=== PATIENT | female | born 1935 | race Caucasian/White ===

== ENCOUNTER 2017-11-16 07:30 | Inpatient (IN) | payer OTHER ==
--- NOTE | 2017-11-17 10:18 | EKG ---
Test Date: 2017-11-17 Test Time: 10:04:19 Fulling Machine Operator: HIEN MEASUREMENT RESULTS: Intervals: Rate: 59 NE: QRSD: 82 QT: 412 QTc: 407 [place]: P: NE: QRS: 30 T: 24 INTERPRETIVE STATEMENTS: Demand pacemaker, interpretation is based on intrinsic rhythm Atrial fibrillation with slow ventricular response with premature ventricular or aberrantly conducted complexes Abnormal ECG Compared to ECG 01/15/2007 17:07:31 Ventricular premature complex(es) now present Sinus rhythm no longer present Electronically Signed On 11-17-17 10:17:48 CDT by Artis Moss
--- NOTE | 2017-11-17 10:31 | RAD REPORT ---
EXAM DESCRIPTION: RAD - Chest Pa And Lat (2 Views) - 11/17/2017 10:22 am CLINICAL HISTORY: Arthritis, chest pain. COMPARISON: 04/17/2015 FINDINGS: The lungs are mildly emphysematous but grossly clear. The heart is moderately enlarged wit h a single lead pacer device present. No displaced fractures. Deviation of the trachea to the left in the upper chest may be related to prominent thyroid nodule appears unchanged since comparative studi es. IMPRESSION: COPD. No acute finding evident.
[2017-11-17 10:52] LABS: Protime INR 1.22
[2017-11-17 10:53] LABS: Absolute Lymphocytes (CBC) 1.8 K/uL (0.7-4.9); Absolute Monocytes 0.5 K/uL (0.1-1.3); Basophils % 0.5 % (0-1.3); Eosinophils % 4.3 % (0-4.4); Hematocrit 39.9 % (36.0-45.0); Lymphocytes % 26.8 % (15.3-44.8); MCH 31.6 pg (27.0-35.0); MCV 94.2 fL (80-100); Monocytes % 7.5 % (3.3-12.3); RBC Red Blood Cell Count 4.24 M/uL (3.86-4.86)
[2017-11-17 11:10] LABS: Albumin 4.3 g/dL (3.2-5.5); Bilirubin Total 0.6 mg/dL (0.3-1.2); Potassium 4.7 mEq/L (3.6-5.0); Protein, Total 7.2 g/dL (6.0-8.3)
[2017-11-17 11:12] LABS: Albumin 4.3 g/dL (3.2-5.5); Bilirubin Direct 0.1 mg/dL (0-0.2); Bilirubin Total 0.6 mg/dL (0.3-1.2); Protein, Total 7.4 g/dL (6.0-8.3)
[2017-11-17 11:19] LABS: Urine Appearance CLEAR; Urine Bilirubin NEGATIVE (NEG); Urine Blood NEGATIVE (NEG); Urine Color YELLOW; Urine Glucose NEGATIVE (NEG); Urine Protein NEGATIVE (NEG); Urine Specific Gravity 1.015 (1.005-1.030); Urine Urobilinogen 0.2 mg/dL (0.2-1.0); Urine pH 5.5 (5.0-7.0)
[2017-11-17 11:28] LABS: Urine Microscopic Reflex ORDER UMIC
[2017-11-17 11:39] LABS: Urine RBC <5 /HPF (NONE SEEN)
[2017-11-17 11:40] LABS: Urine Bacteria <20 /HPF (<20)
[2017-11-17 11:41] LABS: Urine Culture Reflex Order REFLEXED
[2017-11-17 11:42] LABS: A1c Component 0.48 mg/dL; Hemoglobin A1c 5.4 % (4-6.0)
[2017-11-23] MEDS ORDERED: CEFAZOLIN/SWI 1gm 1 GM/10 ML SYR ONE (05:59)
[2017-11-23] MEDS ORDERED: Ringers Lactate 1,000 ML IV ONE ×3 (05:59→12:58)
[2017-11-23] MEDS ORDERED: PROPOFOL 200 MG/20 ML VIAL IV ONE (06:48)
[2017-11-23] MEDS ORDERED: MIDAZOLAM HCL 2 MG/2 ML INJ ONE (06:48)
[2017-11-23] MEDS ORDERED: FENTANYL CITR 250 MCG/5 ML ONE (06:49)
[2017-11-23] MEDS ORDERED: LIDOCAINE 2% MPF 5 ML VIAL ONE (06:49)
[2017-11-23] MEDS ORDERED: ROPLVACAINE HCL 40 ML ONE (06:59)
[2017-11-23] MEDS ORDERED: DEXAMETHASONE 4 MG/ML VIAL ONE (06:59)
[2017-11-23] MEDS ORDERED: BUPIVACA 0.25%/EPI 0.0005%/PF 30 ML VIAL ONE (07:06)
[2017-11-23] MEDS ORDERED: NA CHLORIDE 0.9% 250 ML ONE (07:06)
[2017-11-23] MEDS ORDERED: TRANEXAMIC ACID 1,000 MG in NA CHLORIDE 0.9% 50 ML IV SCH (07:15)
[2017-11-23] MEDS ORDERED: KETOROLAC 30 MG/ML INJ ONE (10:20)
[2017-11-23] MEDS ORDERED: DOCUSATE NA 100 MG CAP PO PRN (11:06)
[2017-11-23] MEDS ORDERED: ACETAMINOPHEN 325 MG TABLET PO PRN (11:06)
[2017-11-23] MEDS ORDERED: ONDANSETRON 4 MG/2 ML VIAL IV PRN (11:06)
[2017-11-23] MEDS ORDERED: ZOLPIDEM TARTRATE 5 MG TABLET PO PRN (11:06)
[2017-11-23] MEDS ORDERED: HYDROCODONE/APAP 7.5/325 MG TAB PO PRN (11:06)
--- NOTE | 2017-11-23 11:44 | RAD REPORT ---
EXAM DESCRIPTION: RAD - Knee Right 2 View - 11/23/2017 11:38 am CLINICAL HISTORY: Right TKA COMPARISON: None. FINDINGS: A right total knee arthroplasty has been performed. Hardware is in expected location. Skin ruy are noted. IMPRESSION: Postoperative right knee with no unexpected finding.
[2017-11-23] MEDS: Ringers Lactate 1,000 ML IV SCH (12:00)
[2017-11-23 12:26] LABS: Hematocrit 37.3 % (36.0-45.0)
--- NOTE | 2017-11-23 15:29 | P.BOP ---
Preoperative diagnosis: Primary osteoarthritis right knee Postoperative diagnosis: Same Primary procedure: right total knee arthroplasty with computer navigation, imageless. Bodily Injury Adjuster: RACIEL ANDERS (Gave necessary pathologist assistant services throughout the case.) Estimated blood loss: 100 mL Specimen: bone shards and soft tissue debrided Findings: Severely eroded lateral femoral condyle with bone on bone contact with the Anesthesia: General Complications: None Implants: [Patella 35 mm oval dome;femur sz3 right;tray sz4RP; insert 3x12.5 RP/ PS
[2017-11-23 17:22] VITALS: BMI 28.6
[2017-11-23] MEDS: CEFAZOLIN/SWI 1gm 1 GM/10 ML SYR IV SCH (17:22)
[2017-11-23] MEDS ORDERED: AMLODIPINE 5 MG TAB PO ONE (19:01)
[2017-11-23] MEDS: ROSUVASTATIN 10 MG TAB PO SCH (20:25)
[2017-11-23] MEDS: BETAMETHASONE DIP 0.05% CREAM TOP SCH (20:27)
[2017-11-24] MEDS: CEFAZOLIN/SWI 1gm 1 GM/10 ML SYR IV SCH (00:15)
--- NOTE | 2017-11-24 01:10 | CON ---
Date of Consultation: 11/23/2017 Reason For Consultation: Medical management. History Of Present Illness: An 82-year-old female patient, who had knee surgery done by Dr. French and postoperatively consultation was requested for medical management. I saw her this evening. She denies any complaints of any pain anywhere. No chest pain. No shortness of breath. No abdominal pain, nausea, vomiting. Review of Systems: Musculoskeletal: Right knee pain prior to surgery because of arthritis. No pain at this point. All other systems reviewed and negative. Past Medical History: Significant for hypertension, chronic atrial fibrillation , hyperlipidemia, osteoporosis, osteoarthritis at multiple sites. Past Surgical History: Significant for pacemaker placement and appendectomy. Allergies: THE PATIENT HAS INTOLERANCE TO MEDICATIONS LIKE FOSAMAX CAUSING NAUSEA AND DIZZINESS, LIPITOR CAUSING HEADACHE, CALCITONIN NASAL SPRAY CAUSING DIZZINESS AND STOMACH PROBLEMS, FENOFIBRATE CAUSING NAUSEA AND VOMITING, GEMFIBROZIL CAUSING DIZZINESS, EVISTA CAUSING NAUSEA, ACTONEL CAUSING NAUSEA, CRESTOR CAUSING NAUSEA, SIMVASTATIN CAUSING HEADACHE. Family History: Not pertinent. Social History: Prior history of smoking, not at present time. Use of alcohol negative. Medications: At home, she takes amlodipine 5 mg, she takes half a tablet p.o. daily; Caltrate plus D 1 tablet 2 times a day; losartan 100 mg p.o. daily; metoprolol 25 mg p.o. 2 times a day; Xarelto 20 mg p.o. daily in the evening time, and rosuvastatin 20 mg p.o. daily. Physical Examination: Vital Signs: Temperature 98.3, pulse 57, respiratory rate 17, blood pressure 176/70, oxygen saturation 94%, height 5 feet 5 inches, weight 172 pounds. General: Awake, alert, oriented, not in distress. HEENT: Head atraumatic, normocephalic. Conjunctivae nonerythematous. Sclerae white. Mouth, no thrush or edema noted. Ears/Nose, no mass, lesion, discharge noted. Neck: Supple. No JVD, lymph nodes, bruit, thyromegaly noted. Lungs: Bilateral good equal air entry. Clear to auscultation. No rhonchi. No rales. Heart: Normal heart sounds, no murmur or gallop. Abdomen: Soft, bowel sounds normal. No guarding, rigidity, tenderness, mass, hepatosplenomegaly, distention, or bruit noted. Extremities: No leg edema. No calf tenderness. Skin: No rash, ulcer, cellulitis. Lymphatics: No lymph node enlargement in neck, supraclavicular, infraclavicular region. Neuro: No focal neurological deficit. Chest: Unremarkable. External Genitalia: Deferred. Rectal: Deferred. Laboratory Data: Labs on 11/17/2017, white count 6.6, hemoglobin 13.4, sodium 135, potassium 4.7 chloride 107, bicarb 21, BUN 28, creatinine 0.66, glucose 97. Liver function test unremarkable. Hemoglobin A1c 5.4. Urinalysis negative. EKG, atrial fibrillation. Chest x-ray, no acute cardiopulmonary changes. Impression: 1. Hypertension. 2. Chronic atrial fibrillation. 3. Hyperlipidemia. 4. Osteoporosis, senile. 5. Osteoarthritis, multiple sites. Plan: Currently, she is on Lovenox for deep venous thrombosis prophylaxis. At appropriate time, we will change from Lovenox to Xarelto and we will do that either tomorrow or day after tomorrow. Home medications will be continued per order. Will continue to monitor blood pressure and if needed, make adjustment on medications. Will continue to monitor blood test for anemia. I will see her tomorrow morning for followup. Thank you much for allowing me to participate in her care. TRINI/SADIA Voice ID: [id number] Report ID: [id number] BLANCA
--- NOTE | 2017-11-24 01:16 | OP ---
Date of Procedure: 11/23/2017 Surgeon: Jasmeet French MD Tip Inserter: ZEN Nieves, who gave very necessary first mate services throughout this case. Preoperative Diagnosis: Primary osteoarthritis, right knee, with severe genu valgum deformity. Postoperative Diagnosis: Primary osteoarthritis, right knee, with severe genu valgum deformity. Primary Procedure: Right total knee arthroplasty with computer navigation, imageless. Indications: This 82-year-old female has put off for years having a joint replacement as her ability to function without severe limiting pain deteriorated. The patient has elected to proceed with righ t total knee arthroplasty after a thorough discussion of risks and benefits with all questions answer ed. Technique: The patient was taken to the operative room after a femoral nerve and sciatic nerve block was given in the PACU. The time-out was called and all pertinent facts were discussed and it was de cided to proceed with the right total knee arthroplasty. The patient was on the operative table with a bolster under the right hip and a footrest to position the knee at 90 degrees during the operation . The tourniquet was applied to the proximal thigh. The prepping and draping was carried out with a Betadine scrub and Betadine paint with Duragesic applied to the foot and ankle, which had been held in traction while the early portion of the prep was completed. The draping was carried out as usual. The knee was marked and then Ioban sticky drape was applied to the operative site. The limb was ex sanguinated with an Esmarch bandage and the tourniquet was raised to 250 mmHg and left up for 126 min utes. The incision was made along the medial third of the patella extending down to the medial side of the tibial tubercle and then longitudinally approximately 6 cm above the superior pole of the curran lla. Once the subcutaneous tissue had been sharply divided and sharp and blunt dissection exposed th e medial parapatellar line, the capsular incision was made in the medial parapatellar approach. The patella was everted and measured at 21 mm. The size of oval dome patella chosen was 35 mm. The appr opriate adjustment was made to the cutting jig and the articular surface was excised in an 8.5 mm waf er leaving 12.5 mm of cancellous patella. PEG holes were drilled. The prosthetic trial was placed i n position and again measured 21 mm. Then, the patellar trial was removed and a metal ean was put i n its place. Then, there was sharp debridement of the anterior knee removing portions of the menisci, ACL, origin of the PCL, and beginning a subperiosteal approach to the medial and lateral tibial plateau. Attenti on was then turned to the distal femur, proximal to the articular surface, and sharp debridement ther e gave access to the flat anterior cortex of the distal femur. Two 3 mm threaded pins were placed in parallel fashion in the proximal incision medial side of the distal femur for attachment of the femo ral array. The tibial array was mounted on two threaded pins through puncture wounds at the medial m id tibial position. Once the arrays were attached, then the knee was moved in circumduction to give the computer chance to calculate the center of rotation for the femoral head. Then, registration was carried out with the pointer array for the femur and then the tibia as sequenced by the computer pro gram. The knee was then held in extension for joint spaces to be recorded and then held at 90 degree s flexion for recording joint space. The program calculated for a size 4 femur and a size 4 tibial t ray. The cut was adjusted slightly and then the oscillating saw was used to make the proximal tibial osteotomy removing the articular surface. The flat-footed array was positioned and the cut was cookie rded once it was accepted. Then, tensiometers were put in place and the ligament balancing was corbin ed out. There was minimal balancing necessary. Then, the adjustments were made on the distal femora l cut to reduce the discrepancy between extension gap and flexion gap. The cut was made and verified and then the 4-in-1 cutting guide for the size 3 femur was chosen as most appropriate and it was facundo igated into position. The anterior cut for the distal femur was made and registered and then the rahul mfer cuts were carried out. The jukebox route driver was placed in position and the reciprocating saw was used for those cuts and the size 3 femoral sigma trial was tapped in position and had a very nice fit. P reparation for the tibial cut cancellous surface was then carried out with a double-prong retractor p osterior to the tibial plateau and Hohmann retractors protecting ligaments on each side. The tray si ze 4 was chosen as the best fit and the trial was tapped into position with bullet pins holding that position. Then, the tower was applied and the reamer was used in reverse to prepare for the keel of the tibial component. Once the bullet pins were removed, the femoral component was reapplied, and th e trial insert was placed in position between the femoral and tibial components and it was quite a go od fit. The patellar button was reapplied and it would track without having to control position. Th en, all prosthetic components were removed. Simpulse lavage was utilized and the drying was carried out with suction and patting with sterile lap gauzes. The 2 batches of Simplex GMV cement were mixed in the cement gun for injection technique and the cement was first injected into the proximal tibial cut surface and the tibial component was tapped into position with excess cement curetted away. The cement was injected then into the distal femoral cut surfaces, and as the femoral component was matthew ed into position, excess cement was curetted away. The remaining cement was injected into the cut edwards rface of the patella and the patellar button was tapped into position and clamped. Once the cement h ad set, the trial prosthetic insert was used first 10 mm and then the 12.5. The 12.5 x size 3 was ch osen and it was snapped into position and the functioning allowed full extension and full flexion and there was stability throughout the whole range. Simpulse lavage was used to irrigate the knee aggre ssively and then #1 Vicryl was used to close the capsule while the knee was bent at 90 degrees with i nterrupted sutures. The subcutaneous tissue was closed with 2-0 Vicryl with interrupted sutures. Sk in ruy were used for the skin. The incision was injected with 30 mL of 0.25% Marcaine plain. A sterile bandage consisting of Aquacel bandage for the main incision and a smaller Aquacel bandage for the 2 punctures on the mid tibial area were placed in position. Estimated blood loss was 100 mL. T he patient was then taken to the recovery room having tolerated this procedure well. She was to be p laced in a CPM machine moving at 0-60 degrees and scheduled for dangling from the bed this evening an d beginning joint camp with 2 physical therapy sessions on the first postoperative day. The patient was given Ancef 1 g IV piggyback prior to the surgery, and at the beginning of the surgery, 1 g of tr anexamic acid was given. The 2nd gram of tranexamic acid was given IV at the initiation of closure. KALEN/SADIA Voice ID: [id number] Report ID: [id number]
[2017-11-24] MEDS: Morphine 2 MG/2 ML SYR IV PRN ×2 (04:17→15:48)
[2017-11-24 05:07] LABS: Hematocrit 36.2 % (36.0-45.0)
[2017-11-24] MEDS: ENOXAPARIN 30 MG/0.3 ML SQ SCH ×3 (06:04→20:11)
[2017-11-24] MEDS ORDERED: HOME MED 1 EA UNK (Losartan Potassium [Losartan Potassium] 100 MG) PO SCH (09:00)
[2017-11-24] MEDS ORDERED: TACROLIMUS 30 GM TP SCH (09:00)
[2017-11-24] MEDS: CELECOXIB 100 MG CAPSULE PO SCH (10:00)
[2017-11-24] MEDS: FE SULF/FA/VIT B COMP & C TAB PO SCH (10:01)
[2017-11-24] MEDS: Ringers Lactate 1,000 ML IV SCH ×2 (10:01→20:11)
[2017-11-24] MEDS: BETAMETHASONE DIP 0.05% CREAM TOP SCH ×2 (10:01→20:08)
[2017-11-24] MEDS: LOSARTAN POTASSIUM 50 MG TABLET PO SCH (10:01)
[2017-11-24] MEDS: AMLODIPINE 2.5 MG TAB PO SCH (10:01)
[2017-11-24] MEDS: SMZ./TMP. 800/160 MG TABLET PO SCH ×2 (10:14→20:12)
[2017-11-24 10:59] LABS: Urine Appearance CLEAR; Urine Bilirubin NEGATIVE (NEG); Urine Blood NEGATIVE (NEG); Urine Color YELLOW; Urine Glucose NEGATIVE (NEG); Urine Protein NEGATIVE (NEG); Urine Urobilinogen 0.2 mg/dL (0.2-1.0); Urine pH 6.5 (5.0-7.0)
[2017-11-24 11:10] LABS: Urine Bacteria <20 /HPF (<20); Urine Culture Reflex Order NOT NEEDED; Urine RBC <5 /HPF (NONE SEEN)
--- NOTE | 2017-11-24 19:56 | P.PN ---
Date of Service: 11/24/17 (POD#1) S: THIS PATIENT IS COMPLAINING OF NAUSEA AND DIZZINESS 2 HOURS AFTER TAKING HER FIRST NORCO 7.5/325APAP TABLET FOR HER FIRST REPORTED PAIN AT 10:[address] VICTORIA HAS DOCUMENTED THE PATIENT'S MANY SIMILAR REACTIONS TO MULTIPLE MEDICATIONS. O: VITAL SIGNS ARE STABLE, PAIN WAS ALL ZEROS UNTIL 10:15,HEMOGLOBIN WAS 12.2 POSTOPERATIVELY, 11.8 THIS MORNING. FIRST PT EFFORT ACCOMPLISHED 10 FEET OF AMBULATION WHILE PATIENT WAS STILL EXPERIENCING SOME BENEFIT OF NERVE BLOCK.AFTERNOON EFFORT ACCOMPLISHED 20 FEET WITH FRONT WHEELED ROLLING WALKER. BANDAGE IS DRY AND INTACT. X-RAY SHOWS EXCELLENT ALIGNMENT OF PROSTHETIC COMPONENTS. CPM MACHINE WAS MILDLY UNCOMFORTABLE RUNNING AT SPEED OF 10 AND 0 TO 60. A: PATIENT IS EXPERIENCING SIGNIFICANT PAIN BUT NORCO 7.5/325 PROVES OVERWHELMING. P: NORCO DOSE WILL BE REDUCED TO 5.0/325 TABLETS EVERY 4 HOURS WHEN NECESSARY FOR PAIN. IF THE PATIENT CONTINUES WITH REACTION OF NAUSEA, CONVERSION TO TRAMADOL WOULD BE CONSIDERED. MORPHINE 2 MG IV IS ALSO AVAILABLE EVERY 4 HOURS AND CAN BE ALTERNATED TOLERATED IF NEEDED.
[2017-11-24] MEDS: ROSUVASTATIN 10 MG TAB PO SCH (20:12)
[2017-11-24] MEDS: HYDROCODONE/APAP 5/325 MG TAB PO PRN (20:22)
[2017-11-24] MEDS ORDERED: AMLODIPINE 5 MG TAB PO ONE (20:37)
[2017-11-25 01:22] VITALS: O2SAT 96
--- NOTE | 2017-11-25 01:59 | PN ---
Date of Progress Note: 11/24/2017 Subjective: The patient was seen this morning for followup. She was lying in bed, not in any distre ss, was having some right knee pain today. No nausea or vomiting. No chest pain. No shortness of b reath. Objective: Vital Signs: Reviewed. HEENT: Examination unremarkable. Lungs: Clear to auscultation. Heart: Heart sounds normal. Abdomen: Soft, bowel sounds normal. No guarding, rigidity, tenderness, or distention. Extremities: No leg edema. Laboratory Data: Hemoglobin 11.8. Urinalysis was done today and it came back negative for leukocyte s, negative for bacteria, wbc's less than 5. Her urine culture from 11/17/2017 grew Staph aureus and this was not MRSA, so that is why I had ordered antibiotic Bactrim to be started according to cultur e sensitivity results, and urinalysis was done today before starting antibiotics. Impression: 1.Hypertension. 2.Hyperlipidemia. 3.Osteoporosis. 4.Atrial fibrillation, chronic. Plan: The patient's repeat urinalysis that was done today came back negative, and at this point, the re is no need for her to take any antibiotic Bactrim, which was started this morning. I will go ahea d and discontinue that. She is on DVT prophylaxis with Lovenox and hemoglobin is slightly lower comp ared to yesterday, but no concerns. We will continue to monitor hemoglobin and probably starting joslyn orrow. Depending on her hemoglobin, we will decide if we can stop her Lovenox and start her on Xarel to that she normally takes at home. Continue current antihypertensive medication. I will see her tomorrow for followup. TRINI/MODL Voice ID: [id number] Report ID: [id number]
[2017-11-25] MEDS: HYDROCODONE/APAP 5/325 MG TAB PO PRN ×3 (02:07→20:30)
[2017-11-25 05:07] LABS: Hematocrit 29.7 % (36.0-45.0)
[2017-11-25] MEDS ORDERED: ENOXAPARIN 30 MG/0.3 ML SQ SCH (06:00)
[2017-11-25] MEDS: ENOXAPARIN 30 MG/0.3 ML SQ SCH ×2 (09:00→20:30)
[2017-11-25] MEDS: CELECOXIB 100 MG CAPSULE PO SCH (09:00)
[2017-11-25] MEDS: AMLODIPINE 2.5 MG TAB PO SCH (09:01)
[2017-11-25] MEDS: FE SULF/FA/VIT B COMP & C TAB PO SCH (09:01)
[2017-11-25] MEDS: LOSARTAN POTASSIUM 50 MG TABLET PO SCH (09:02)
--- NOTE | 2017-11-25 18:44 | P.PN ---
Date of Service: 11/25/17 (POD#2) S: THIS PATIENT IS COMFORTABLE IN BED WITH CPM 75*. ATE ALL OF HER LUNCH. O: VITAL SIGNS ARE STABLE, AFEBRILE, PATIENT DESCRIBES RIGHT KNEE SORENESS, BUT PARTICIPATING ENTHUSIASTICALLY WITH THERAPY. HEMOGLOBIN DROPPED FROM 11.8 TO 9.8 THIS MORNING. FIRST PT EFFORT THIS MORNING ACCOMPLISHED 50 FEET OF AMBULATION. AFTERNOON EFFORT ACCOMPLISHED 60, 38. AND 98 FEET WITH ROLLING WALKER. BANDAGE REMAINS DRY AND INTACT. ROGER'S NEGATIVE. NV EXAM INTACT. A: PATIENT IS DOING BETTER WITH NORCO 5/325, BUT C/O NAUSEA LAST NIGHT WITH MORPHINE DOSE. P: PATIENT ON TRACK FOR DISCHARGE TO [facility] ON WEDNESDAY.
[2017-11-25] MEDS: ROSUVASTATIN 10 MG TAB PO SCH (20:30)
[2017-11-25] MEDS: BETAMETHASONE DIP 0.05% CREAM TOP SCH (20:31)
--- NOTE | 2017-11-26 02:05 | PN ---
Date of Progress Note: 11/25/2017 Subjective: The patient was seen this morning for followup. She has pain in her knees when she does therapy almost, otherwise no new complaints or problems reported. Objective: Vital Signs: Reviewed. HEENT: Examination unremarkable. Lungs: Clear to auscultation. Heart: Heart sounds normal. Abdomen: Soft. Bowel sounds normal. No guarding, rigidity, tenderness, or distention. Extremities: No leg edema. Laboratory Data: Hemoglobin 9.8 today, yesterday hemoglobin was 11.8, day before it was 12.2. Impression: 1.Anemia due to acute blood loss. 2.Chronic atrial fibrillation. 3.Hypertension. Plan: The patient is on Lovenox for DVT prophylaxis. We will continue that. Considering her hemogl obin is dropping, we will not initiate any Xarelto at this point as the risk will be more than the be nefit. Continue Lovenox for DVT prophylaxis. Continue current antihypertensive medication. We will follow up on hemoglobin again tomorrow. So far, there is no need for blood transfusion. Details we re discussed with the patient. TRINI/MODL Voice ID: [id number] Report ID: [id number]
[2017-11-26 05:01] LABS: Hematocrit 29.5 % (36.0-45.0)
[2017-11-26] MEDS: BETAMETHASONE DIP 0.05% CREAM TOP SCH (09:00)
[2017-11-26] MEDS: AMLODIPINE 2.5 MG TAB PO SCH (09:12)
[2017-11-26] MEDS: LOSARTAN POTASSIUM 50 MG TABLET PO SCH (09:12)
[2017-11-26] MEDS: CELECOXIB 100 MG CAPSULE PO SCH (09:16)
[2017-11-26] MEDS: FE SULF/FA/VIT B COMP & C TAB PO SCH (09:16)
[2017-11-26] MEDS: HYDROCODONE/APAP 5/325 MG TAB PO PRN (09:16)
[2017-11-26] MEDS: ENOXAPARIN 30 MG/0.3 ML SQ SCH (09:17)
[2017-11-26 13:53] VITALS: BP 115/56; TEMP 97.9
[2017-11-26] MEDS ORDERED: RIVAROXABAN 20 MG TABLET PO SCH (17:00)
--- NOTE | 2017-11-26 21:42 | PN ---
Date of Progress Note: 11/26/2017 Subjective: The patient was seen this morning for followup. No new complaints or problems reported by her. Her knee pain was well controlled. Objective: Vital Signs: Reviewed. HEENT: Unremarkable. Lungs: Clear to auscultation. Heart: Sounds normal. Abdomen: Soft. Bowel sounds normal. No guarding, rigidity, tenderness, or distention. Extremities: No leg edema. Laboratory Data: Hemoglobin 9.7. Impression: 1.Acute blood loss anemia. 2.Hypertension. 3.Hyperlipidemia. 4.Chronic atrial fibrillation. Plan: We will go ahead and continue current medications. Discontinue Lovenox. Hemoglobin is stable compared to yesterday and we will start the patient on Xarelto 20 mg p.o. daily that she takes for h er chronic atrial fibrillation. Medically the patient is stable for discharge to go to shelter when it is okay with Dr. French. If she does not go to shelter today, I will see her tomorrow f or followup. TRINI/MODL Voice ID: [id number] Report ID: [id number]
[2017-11-27] MEDS ORDERED: METOPROLOL TAR 25 MG TAB PO SCH (09:00)
--- NOTE | 2017-12-22 11:26 | DS ---
Date of Discharge: 11/26/2017 History Of Present Illness: Esmer Flores is an 82-year-old female who was admitted for elective rig ht total knee arthroplasty done with computer navigation and Imageless technique. The patient had a Sigma DePuy posterior stabilized knee put in with 35 mm oval dome patella, femoral prosthesis size 3 right, tibial tray size 4 RP, insert 3 x 12.5, rotating platform/patella posterior stabilized. The p atient had 100 mL estimated blood loss. She was found to have a severely eroded lateral femoral cond yle with bone on bone contact in that compartment. She was then admitted. Dr. Holloway was consulted fo r medical management and found problems to include hypertension, chronic atrial fibrillation, hyperli pidemia, senile osteoporosis, and osteoarthritis multiple sites. Lovenox was being used for deep justin ous thrombosis prophylaxis with plans to change to Xarelto at her usual dose. The first postop day w as marked with complaints of nausea and dizziness two hours after taking her first dose of hydrocodon e as her femoral sciatic nerve block were off, requiring her first use of medication at approximately 10:15 a.m. The patient has had many similar reactions to multiple medications. Postop day 1 hemogl obin was 11.8, and the patient only completed 10 feet of ambulation in the morning and 20 feet in the afternoon using a front wheeled rolling walker. Her bandage remained dry and intact and x-ray showe d excellent alignment of prosthetic components. CPM was being used at 0-60 degrees as tolerated. Th e [place] dose was reduced to 5 mg tablets/325 APAP to be taken every 4 hours only when necessary for p ain. Morphine at 2 mg IV was also available q.4 hours to be alternated as needed. Dr. Holloway saw the patient on the first postop day and stopped the Bactrim that he had ordered as the more recent urinal ysis came back clear. On postoperative day 2, the patient was comfortable with CPM at 75 degrees and her appetite had returned. She was participating enthusiastically with therapy accomplishing 50 fee t of ambulation in the morning and 60, 38, and 98 feet in the afternoon. Bandage remained dry and in tact. Hemoglobin dropped from 11.8 to 9.8 with a morning test, the patient was tolerating her [place] 5/325 tablets, but complained of nausea with IV morphine [address] Holloway continued Lovenox and d id not initiate Xarelto on postoperative day 2 because of the drop in hemoglobin. Antihypertensive m edication was continued. Anemia due to acute blood loss was added to the patient's problem list with both chronic atrial fibrillation and hypertension continuing to be addressed. On the third postop d ay, the patient was having no new complaints or problems. Her knee pain was well controlled. Hemogl obin was stable at 9.7. Dr. Holloway arranged discharge with Lovenox discontinued and the patient was st arted on Xarelto 20 mg p.o. daily for her chronic atrial fibrillation. The patient was scheduled for discharge to special nursing unit at [facility]. The patient was able to go 110 feet x 2 with her rolling walker, she needed cues for safety with her mobility and was moving very fast. She was given encouragement to stay out of bed and maintain mobility. Doing a bit more each day so at the end of her special nursing unit days she could go home safely. The patient was discharged with a prescripti on for Hemocyte Plus 1 tablet daily with breakfast, number dispensed 30, Xarelto 20 mg p.o. daily, nu mber dispensed 30. Tramadol 50 mg p.o. q.4 hours p.r.n. pain, number dispensed 30. She was to vinnie nue all of her prior home medications taking her Xarelto 20 mg tablets daily with supper. Hemoglobin /hematocrit was to be monitored on a weekly basis. The patient's Aquacel bandage was changed prior t o discharge with alcohol swabs prior to applying a new Aquacel bandage. This was to be continued q.5 days with new bandages. She was to have CPM continued 3 hours per day and 30-45 minute intervals at 0-75 degrees with increase 5 degrees per day as tolerated to maximum of 120 degrees range of motion. She was to come to followup at my office in 1-2 weeks for removal of ruy as indicated. KALEN/SADIA Voice ID: [id number] Report ID: [id number]
== END 2017-11-26 13:37 | DRG 470 ==
LOC: DSO 11-23 05:48 → EDSTATUS 11-23 07:30 → 2ND 11-23 14:41
PROVIDERS: ADMIT Orthopaedic Surgery; ATTEND Orthopaedic Surgery
PROC: 0SRC0J9 Replacement of Right Knee Joint with Synthetic Substitute, Cemented, Open Approach (ICD-10-PCS; principal; 2017-11-23 07:30)
DX: M17.11 Unilateral primary osteoarthritis, right knee (principal); D62 Acute posthemorrhagic anemia; I48.2 Chronic atrial fibrillation; I10 Essential (primary) hypertension; E78.5 Hyperlipidemia, unspecified; M81.0 Age-related osteoporosis without current pathological fracture; M15.9 Polyosteoarthritis, unspecified
CPT/HCPCS: 36415; 71046; 80053; 80076; 81001; 81003; 81015; 83036; 85014; 85018; 85025; 85610; 85730; 86850; 86900; 86901; 87077; 87086; 87088; 87186; 88304; 88311; 93005; 97163; J0690; J1650; J2250; J2270; J2405; J2795

== ENCOUNTER 2019-07-14 07:35 | Day surgery (SDC) | payer OTHER ==
[2019-07-07 12:27] LABS: Absolute Lymphocytes (CBC) 1.9 K/uL (0.7-4.9); Basophils % 0.8 % (0-1.3); Hematocrit 39.9 % (36.0-45.0); Lymphocytes % 26.4 % (15.3-44.8); MPV 9.4 fL (7.6-11.3); RBC Red Blood Cell Count 4.28 M/uL (3.86-4.86)
[2019-07-07 12:32] LABS: Protime INR 1.45
--- NOTE | 2019-07-07 12:37 | RAD REPORT ---
EXAM DESCRIPTION: Edson Burris (2 Views)07/07/2019 12:27 pm CLINICAL HISTORY: Preop for foot surgery COMPARISON: 2018 FINDINGS: The lungs appear clear of acute infiltrate. The heart is mildly to moderately enlarged IMPRESSION: No acute abnormalities displayed
[~2019-07-14 07:35] MED LIST: ONDANSETRON 4 MG/2 ML VIAL ONE
[2019-07-14] MEDS ORDERED: Ringers Lactate 1,000 ML IV ONE (08:05)
[2019-07-14 08:09] VITALS: O2SAT 98
[2019-07-14] MEDS ORDERED: propofoL 200 MG/20 ML VIAL IV ONE (08:20)
[2019-07-14] MEDS ORDERED: LIDOCAINE 2% MPF 5 ML VIAL ONE (08:20)
[2019-07-14] MEDS ORDERED: FENTANYL CITR 100 MCG/2 ML ONE (08:20)
[2019-07-14] MEDS ORDERED: LIDOCAINE 1% MPF 30 ML VIAL ONE (08:23)
[2019-07-14] MEDS ORDERED: dexAMETHasone 4 MG/ML VIAL ONE (08:24)
[2019-07-14] MEDS ORDERED: CEFAZOLIN SODIUM 1 GM/VIAL ONE (09:06)
[2019-07-14] MEDS ORDERED: NS 0.9% VIAL 10 ML ONE (09:06)
[2019-07-14 10:18] VITALS: BP 190/65; TEMP 98.4
--- NOTE | 2019-07-16 11:49 | EKG ---
Test Date: 2019-07-14 Test Time: 08:14:05 Ware Tester: SHELIA MEASUREMENT RESULTS: Intervals: Rate: 46 VT: QRSD: 76 QT: 456 QTc: 399 [place]: P: VT: QRS: 5 T: 16 INTERPRETIVE STATEMENTS: Demand pacemaker, interpretation is based on intrinsic rhythm Junctional rhythm with occasional premature ventricular complexes Abnormal ECG Compared to ECG 11/17/2017 10:04:19 Junctional rhythm now present Atrial fibrillation no longer present Aberrant conduction of supraventricular beat(s) no longer present Electronically Signed On 07-16-19 11:42:48 PACKING AND WRAPPING SUPERVISOR by Dong Whyte
== END 2019-07-14 11:05 | disposition home or self-care (01) ==
LOC: OR 07:35
PROVIDERS: ATTEND Podiatrist Foot Surgery
PROC: 0QBR0ZZ Excision of Left Toe Phalanx, Open Approach (ICD-10-PCS; principal; 2019-07-14 08:30)
DX: M20.42 Other hammer toe(s) (acquired), left foot (principal); I48.91 Unspecified atrial fibrillation; I10 Essential (primary) hypertension
CPT/HCPCS: 93005; 85025; 36415; 85610; 85730; 71046; 28285 ×3; J2704; J3010; J7120; J0690; J2405

== ENCOUNTER 2020-08-04 18:00 | Inpatient (IN) | payer OTHER ==
--- OUTSIDE RECORDS SUMMARY | 2020-08-04 18:02 | XMS REPORT | Continuity of Care Document ---
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 Neuro (disorder) Insomnia Active Problem 10/28/2019 [facility] (disorder) Neuro Medications Medication Details Route Status Patient Ordering Order Source Instructions Provider Date Mirtazapine 15 15 mg = 1 Active Mischer MG Oral Tablet tab, PO, 019 Neuro [Remeron] Bedtime, # 30 tab, 4 Refill(s), Pharmacy: [facility] Galantamine 8 MG 8 mg = 1 Active Mische r Oral Tablet tab, PO, 019 Neuro [Razadyne] BID, # 60 tab, 4 Refill(s), Pharmacy: [facility] Mirtazapine 15 15 mg = 1 Active Mischer MG Oral Tablet tab, PO, 019 Neuro [Remeron] Bedtime, # 30 tab, 1 Refill(s), Pharmacy: [facility] 808 amLODIPine 5 mg See Active Mischer oral tablet Instruction 019 Neuro s, 1/2 tab PO Daily, 0 Refill(s) Galantamine 4 MG 4 mg = 1 Active Mische r Oral Tablet tab, PO, 019 Neuro [Razadyne] BID, # 60 tab, 3 Refill(s), Pharmacy: [facility]08 Donepezil 5 mg = 1 No Longer Mischer hydrochloride 5 tab, PO, Active 019 Neuro MG Oral Tablet Bedtime, # [Aricept] 30 tab, 4 Refill(s), Pharmacy: [facility] 808 amLODIPine 5 mg See No Longer Mische r oral tablet Instruction Active 019 Neuro s, 1.5 tabs PO Daily, 0 Refill(s) rosuvastatin 20 20 mg = 1 Active Mische r mg oral tablet tab, PO, 019 Neuro Bedtime, # 30 tab, 0 Refill(s) rivaroxaban 20 20 mg = 1 Active Mischer MG Oral Tablet tab, PO, 019 Neuro [Xarelto] QPM, # 30 tab, 3 Refill(s) losartan 100 mg 100 mg = 1 Active Misch er oral tablet tab, PO, 019 Neuro Daily, # 30 tab, 0 Refill(s) tramadol 50 mg = 1 Active Mischer hydrochloride 50 tab, PO, 019 Neuro MG Oral Tablet Q4H, PRN Pain, # 60 tab, 0 Refill(s) metoprolol 25 mg = 1 Active Mischer tartrate 25 mg tab, PO, 019 Neuro oral tablet BID, # 180 tab, 0 Refill(s) Allergies, Adverse Reactions, Alerts Substance Category Reaction Severity Reaction Status Date Comments S ource type Reported No Known Assertion Drug Misch er Medication allergy Neuro Allergies Immunizations No Data Provided for This Section Results No Data Provided for This Section Pathology Reports No Data Provided for This Section Diagnostic Reports No Data Provided for This Section Consultation Notes No Data Provided for This Section Discharge Summaries No Data Provided for This Section History and Physicals No Data Provided for This Section Vital Signs Vital Sign Value Date Comments Source Height 162.56 [facility] Weight 83.182 05/30/2019 [facility] Neuro BMI Calculated 31.48 05/30/2019 [facility] Neuro Systolic (mm Hg) 133 05/30/2019 [facility] Dominique ro Diastolic (mm Hg) 75 05/30/2019 [facility] Ne uro Heart Rate 78 05[facility]30/2019 [facility] Respitory Rate 16 05/30/2019 [facility] Weight 81.364 11/30/2018 [facility] Neuro BMI Calculated 32.81 11/30/2018 [facility] Neuro Respitory Rate 16 11/30/2018 [facility] Neuro Heart Rate 84 11/30/2018 [facility] Neuro Height 157.48 cm 11/30/2018 [facility] Neuro Systolic (mm Hg) 126 11/30/2018 [facility] Dominique ro Diastolic (mm Hg) 77 11/30/2018 [facility] Ne uro Systolic (mm Hg) 175 08/17/2018 [facility] Dominique ro Heart Rate 68 08/17/2018 [facility] Neuro Respitory Rate 16 08/17/2018 [facility] Height 157.48 cm 08/17/2018 [facility] Neuro Weight 79.545 08/17/2018 [facility] Neuro BMI Calculated 32.07 08/17/2018 [facility] Height 165.1 cm 07/22/2018 [facility] Neuro Weight 80 07/22/2018 [facility] Neuro BMI Calculated 29.35 07/22/2018 [facility] Neuro Heart Rate 97 07/22/2018 [facility] Neuro Respitory Rate 16 07/22/2018 [facility] Neuro Systolic (mm Hg) 132 07/22/2018 [facility] Dominique ro Diastolic (mm Hg) 80 07/22/2018 [facility] Encounters Location Location Encounter Encounter Reason Attending ADM [place] Source Details Type Number For Provider Date Date Visit Outpatient [id number] [facility] 07/22 [facility] [id number] Barron 07/22 07/23 [facility] Neurology [facility] [place] [facility] [id number] BARRON 08/17 [facility] [id number] Barron 08/17 08/18 [facility] Neurology [facility] [place] Outpatient [id number] BARRON 10/18 [facility] [place] Out[facility] [id number] Barron 11/30 [facility] [place] [facility] Outpatient [id number] Barron 11/30 12/01 [facility] Neurology [facility] Neuro [place] [facility]patient [id number] Barron 03/09 [facility] [place] [facility] Outpatient [id number] Barron 03/09 03/10 [facility] Neurology [facility] Neuro [place] Outpatient [id number] Barron 05/30 [facility] [place] [facility] Outpatient [id number] Barron 05/30 05/31 [facility] Neurology [facility] Neuro [place] [facility]patient [id number] Barron 09/26 [facility] [id number] Barron 10/25 10/25 [facility] [place] Procedures No Data Provided for This Section Assessment and Plan No Data Provided for This Section Plan of Care No Data Provided for This Section Social History Social History Date Source Social History TypeResponse 05/30/2019 [facility] Employment/School Other: not driving. 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
[2020-08-04] MEDS ORDERED: NA CHLORIDE 0.9% 250 ML ONE (19:35)
[2020-08-04] MEDS ORDERED: VANCOMYCIN 1 GM/VIAL ONE (19:35)
[2020-08-04] MEDS ORDERED: NA CHLORIDE 0.9% 500 ML ONE (19:36)
[2020-08-04] MEDS ORDERED: CEFEPIME/SWI 1gm 10 ML ONE (19:36)
--- NOTE | 2020-08-04 19:43 | RAD REPORT ---
EXAM DESCRIPTION: RAD - Chest Single View - 08/04/2020 7:21 pm CLINICAL HISTORY: DYSPNEA COMPARISON: Two-view chest August 03 TECHNIQUE: AP portable chest image was obtained 08/04/2020 7:21 pm . FINDINGS: Lung volumes remain low. Bilateral pleural effusions, large on the right and small to mode rate on the left, are again noted. No change from prior day imaging. Interstitial opacification in th e lung ricketts present, accentuated by shallow inspiration. Heart size is stable. Right heart border i s obscured by the large right pleural effusion. No pneumothorax. No acute bony abnormality seen. No a cute aortic findings suspected. IMPRESSION: Large right-side and moderate left-side pleural effusions similar to prior day study. Increased interstitial opacification is probably the affects of more shallow inspiration rather than significant infiltrate or edema change.
[2020-08-04 19:48] LABS: Absolute Lymphocytes (CBC) 1.5 K/uL (0.7-4.9); Basophils % 0.7 % (0-1.3); Hematocrit 36.2 % (36.0-45.0); Lymphocytes % 12.6 % (15.3-44.8); MPV 9.4 fL (7.6-11.3); RBC Red Blood Cell Count 4.08 M/uL (3.86-4.86)
[2020-08-04 19:50] LABS: Protime INR 1.83
[2020-08-04 21:00] LABS: Albumin 2.6 g/dL (3.4-5.0); Amylase 120 U/L (25-115); BUN Blood Urea Nitrogen 63 mg/dL (7-18); Bicarbonate 30 mmol/L (21-32); Glucose Level 107 mg/dL (74-106); Lipase 648 U/L (73-393); Magnesium 2.8 mg/dL (1.8-2.4); Sodium Level 136 mmol/L (136-145)
[2020-08-04 21:02] LABS: ALT/SGPT 17 U/L (12-78); AST/SGOT 21 U/L (15-37); Bilirubin Direct 0.1 mg/dL (0-0.2)
[2020-08-04 21:08] LABS: Alkaline Phosphatase 65 U/L (45-117); Bilirubin Total 0.3 mg/dL (0.2-1.0); CKMB Creatine Kinase MB 1.2 ng/mL (0.3-3.6); Creatine Phosphokinase 37 U/L (26-192); NT PRO-BNP 1572 pg/mL (<450); Protein, Total 6.3 g/dL (6.4-8.2); Troponin (Emerg Dept Use Only) < 0.02 ng/mL (0.0-0.045)
[2020-08-04 21:14] LABS: Potassium 6.1 mmol/L (3.5-5.1)
--- NOTE | 2020-08-04 21:41 | EDPHYS ---
Physician Documentation [facility] Name: Esmer Flores Age: 85 yrs Sex: Female : 1935 Arrival Date: 08/04/2020 Time: 18:01 Bed 18 Private MD: Cristina Holloway C ED Physician Dante Thomson HPI: 08/04 19:50 This 85 yrs old Female presents to ER via Ambulatory with complaints of Leg ma2 Swelling. 19:50 The patient presents with decreased range of motion. Associated signs and symptoms: ma2 Pertinent negatives: fever, numbness, rash, swelling. Severity of symptoms: At their worst the symptoms were moderate, in the emergency department the symptoms are unchanged. The patient has not experienced similar symptoms in the past. patient has chf and LE swelling for weeks, she is here today for left foot pain x 3 days, pain is gradual and severe, she was noticed at triage to be hypotensive to 75/60, with o2 sats 88 on RA, and was breathing fast, she states her breathing is baseline and she takes O2 at home prn, no fever. Historical: - Allergies: 18:14 No Known Allergies; ll1 - PMHx: 18:14 CHF; Hypertension; High Cholesterol; ll1 - PSHx: 18:14 knee sx; pacemaker; ll1 - Immunization history:: Flu vaccine is not up to date. - Social history:: Smoking status: Patient denies any tobacco usage or history of. Patient/guardian denies using alcohol, street drugs, The patient lives with family. - Family history:: not pertinent. ROS: 19:50 MS/extremity: Positive for erythema, pain, Negative for injury or acute deformity, ma2 abrasion, contusion, tingling. 19:50 Constitutional: Negative for fever, chills, and weight loss. 19:50 All other systems are negative. Exam: 19:50 Constitutional: This is a well developed, well nourished patient who is awake, alert, ma2 and in no acute distress. Eyes: Pupils equal round and reactive to light, extra-ocular motions intact. Lids and lashes normal. Conjunctiva and sclera are non-icteric and not injected. Cornea within normal limits. Periorbital areas with no swelling, redness, or edema. ENT: Nares patent. No nasal discharge, no septal abnormalities noted. Tympanic membranes are normal and external auditory canals are clear. Oropharynx with no redness, swelling, or masses, exudates, or evidence of obstruction, uvula midline. Mucous membranes moist. Neck: Trachea midline, no thyromegaly or masses palpated, and no cervical lymphadenopathy. Supple, full range of motion without nuchal rigidity, or vertebral point tenderness. No Meningismus. Chest/axilla: Normal chest wall appearance and motion. Nontender with no deformity. No lesions are appreciated. Cardiovascular: Regular rate and rhythm with a normal S1 and S2. No gallops, murmurs, or rubs. Normal PMI, no JVD. No pulse deficits. Respiratory: tachypnic with mild basal rales bilat, No wheezes noted. no retractions or nasal flaring. sats are 95 on 2L NC Abdomen/GI: Soft, non-tender, with normal bowel sounds. No distension or tympany. No guarding or rebound. No evidence of tenderness throughout. Skin: Warm, dry with normal turgor. Normal color with no rashes, no lesions, and no evidence of cellulitis. MS/ Extremity: has left foot erythema and warmth, no crepitation or fluctuence, left foot is diffusely tender, also has bilat LE edema 2+ equal bilat, pitting.. Pulses equal, no cyanosis. Neurovascular intact. Full, normal range of motion. Neuro: Awake and alert, GCS 15, oriented to person, place, time, and situation. Cranial nerves II-XII grossly intact. Motor strength 5/5 in all extremities. Sensory grossly intact. Cerebellar exam normal. Normal gait. Vital Signs: 18:14 BP 104 / 62; Pulse 52; Resp 24; Temp 97.6; Pulse Ox 97% on R/A; Weight 72.57 kg; Height ll1 5 ft. 5 in. (165.10 cm); 19:14 BP 75 / 40; Pulse 78; Resp 24; Pulse Ox 100% 2 lpm ; jl7 19:37 BP 95 / 64; Pulse 90; Resp 24; Pulse Ox 99% on 2 lpm NC; wh 20:10 BP 94 / 67; Pulse 96; Resp 20; Pulse Ox 98% on 2 lpm NC; wh 21:15 BP 89 / 49; Pulse 89; Resp 20; Pulse Ox 98% on 2 lpm NC; wh 21:38 BP 92 / 67; Pulse 67; Resp 19; Pulse Ox 98% on 2 lpm NC; wh 23:00 BP 95 / 63; Pulse 91; Resp 20; Pulse Ox 98% on 2 lpm NC; wh 18:14 Body Mass Index 26.63 (72.57 kg, 165.10 cm) ll1 MDM: 18:45 Patient medically screened. kb 18:46 Patient medically screened. kb 19:50 Differential diagnosis: fracture, sprain, arthritis, gout, cellulitis, no clinical sign ma2 of nec fasciitis or abscess.. bp improved with 250 bolus ns, bp is 95/65. patient is likely having severe sepsis. 21:38 Data reviewed: vital signs, nurses notes, lab test result(s), cardiac enzymes, CBC, 7 electrolytes, urinalysis, EKG, radiologic studies, plain films. Counseling: I had a detailed discussion with the patient and/or guardian regarding: the historical points, exam findings, and any diagnostic results supporting the discharge/admit diagnosis, lab results, radiology results, the need for further work-up and treatment in the hospital. Response to treatment: the patient's symptoms have mildly improved after treatment. 08/04 18:56 Order name: Urine Culture [facility] 08/04 18:56 Order name: C-Reactive Protein; Complete Time: 21:27 [facility] 08/04 18:56 Order name: Amylase, Serum; Complete Time: 21:27 [facility] 08/04 18:56 Order name: Basic Metabolic Panel; Complete Time: 21:27 [facility] 08/04 18:56 Order name: Blood Culture Adult (2) [facility] 08/04 18:56 Order name: CBC with Diff; Complete Time: 19:59 08/04 18:56 Order name: Ckmb; Complete Time: 21:27 [facility] 08/04 18:56 Order name: CPK; Complete Time: 21:27 [facility] 08/04 18:56 Order name: Lactate; Complete Time: 20:35 [facility] 08/04 18:56 Order name: LFT's; Complete Time: 21:27 [facility] 08/04 18:56 Order name: Lipase; Complete Time: 21:27 [facility] 08/04 18:56 Order name: Procalcitonin; Complete Time: 21:27 ma2 08/04 18:56 Order name: Protime (+inr); Complete Time: 19:59 ma2 08/04 18:56 Order name: Ptt, Activated; Complete Time: 19:59 ma2 08/04 18:56 Order name: Troponin (emerg Dept Use Only); Complete Time: 21:27 ma2 08/04 18:56 Order name: Urine Microscopic Only ma2 08/04 18:57 Order name: Urine Culture EDMS 08/04 19:06 Order name: NT PRO-BNP; Complete Time: 21:27 EDMS 08/04 19:06 Order name: Magnesium; Complete Time: 21:27 EDMS 08/04 19:41 Order name: Glucose, Ancillary Testing; Complete Time: 19:59 EDMS 08/04 21:48 Order name: Basic Metabolic Panel EDMS 08/04 21:48 Order name: Basic Metabolic Panel EDMS 08/04 18:45 Order name: XRAY Chest (1 view); Complete Time: 19:59 kb 08/04 18:45 Order name: EKG; Complete Time: 18:46 kb 08/04 21:48 Order name: Consistent Carb (ADA) 1800 Shant EDMS 08/04 21:48 Order name: Low Sodium EDMS 08/04 21:48 Order name: EKG Electrocardiogram EDMS 08/04 21:48 Order name: EKG Electrocardiogram EDMS 08/04 21:48 Order name: CBC with Automated Diff EDMS 08/04 21:48 Order name: CBC with Automated Diff EDMS 08/04 21:48 Order name: NT PRO-BNP EDMS 08/04 21:48 Order name: NT PRO-BNP EDMS 08/04 21:48 Order name: Troponin I EDMS 08/04 21:48 Order name: Troponin I EDMS 08/04 21:48 Order name: Troponin I EDMS 08/04 21:48 Order name: Chest Single View EDMS 08/04 21:48 Order name: Chest Single View EDMS 08/04 23:13 Order name: SARS-COV-2 RT PCR EDMS 08/05 05:45 Order name: Basic Metabolic Panel EDMS 08/05 05:45 Order name: NT PRO-BNP EDMS 08/05 09:21 Order name: CT EDMS 08/04 18:56 Order name: Accucheck; Complete Time: 19:32 ma2 08/04 18:56 Order name: Cardiac monitoring; Complete Time: 19:32 [facility] 08/04 18:56 Order name: EKG - Nurse/Tech; Complete Time: 19:32 [facility] 08/04 18:56 Order name: IV Saline Lock - Large Bore; Complete Time: 19:32 ky2 08/04 18:56 Order name: Labs collected and sent; Complete Time: 19:32 [facility] 08/04 20:21 Order name: Labs - recollect needed; Complete Time: 20:23 2 Administered Medications: 19:32 Drug: Cefepime 1 grams {Note: Given Cefepime 1 gram in 10cc, Per MD discretion.} Route: IVPB; Rate: 200 ml/hr; Infused Over: 30 mins; Site: right antecubital; 23:02 Follow up: Response: No adverse reaction; IV Status: Completed infusion 19:36 Drug: vancoMYCIN 1 grams Route: IVPB; Infused Over: 2 hrs; Site: right antecubital; 23:02 Follow up: Response: No adverse reaction; IV Status: Completed infusion 22:03 Drug: NS 0.9% 500 ml Route: IV; Rate: 75 ml/hr; Site: right antecubital; 23:01 Follow up: Response: No adverse reaction; IV Status: Infusion continued upon admission 22:03 Drug: Kayexalate 45 grams Route: PO; 23:01 Follow up: Response: No adverse reaction 22:05 Drug: Lasix 40 mg {Note: 91/51.} Route: IVP; Site: right antecubital; 23:01 Follow up: Response: No adverse reaction Disposition: 08/04/20 21:40 Hospitalization ordered by Tyler Holloway for Observation. Preliminary diagnosis are CHF Exacerbation, Bilateral Pleural Effusions. - Bed requested for Telemetry/MedSurg (observation). - Status is Observation. iw - Condition is Stable. - Problem is an acute exacerbation. - Symptoms have improved. Signatures: Dispatcher [employer] EDMariluz Olivarez FNP-C FNP-Justyna Davis Diana, RN RN Lindsay Souza RN RN Jessee Tijerina RN RN Amalia Laws MD MD ky2 Grisel Rivas [facility] Charlie Jennings RN RN ll1 Dante Thomson MD MD 7 Corrections: (The following items were deleted from the chart) 19:05 18:46 PROTIME (+INR)+COAG.LAB.BRZ ordered. EDME EDMS 19:05 18:58 Chest Single View+RAD.RAD.BRZ ordered. EDME EDMS 19:06 18:46 BASIC METABOLIC PANEL+C.LAB.BRZ ordered. EDME EDME 19:06 18:46 CBC+H.LAB.BRZ ordered. EDME EDMS 19:06 18:46 HEPATIC FUNCTION+C.LAB.BRZ ordered. EDME EDMS 19:06 18:46 MAGNESIUM+C.LAB.BRZ ordered. EDME EDME 19:06 18:46 PROBNP+C.LAB.BRZ ordered. EDME EDME 19:06 18:46 TROPONIN (EMERG DEPT USE ONLY)+C.LAB.BRZ ordered. [facility] EDME 19:32 18:45 Cardiac monitoring ordered. kb jp3 19:33 18:45 EKG - Nurse/Tech ordered. kb jp3 19:33 18:45 IV Saline Lock ordered. kb jp3 19:33 18:45 Labs collected and sent ordered. kb jp3 19:34 18:45 Oxygen Per Protocol ordered. kb jp3 19:34 18:45 O2 Sat Monitoring ordered. kb jp3 22:21 21:44 CORONAVIRUS+MR.LAB.BRZ ordered. EDME EDME 22:59 21:40 Hospitalization Ordered by Tyler Holloway MD for Observation. Preliminary diagnosis dw is CHF Exacerbation; Bilateral Pleural Effusions. Bed requested for Telemetry/MedSurg (observation). Status is Observation. Condition is Stable. Problem is an acute exacerbation. Symptoms have improved. mh7 08/05 07:51 08/04 22:59 08/04/2020 21:40 Hospitalization Ordered by Tyler Holloway MD for Observation. bd Preliminary diagnosis is CHF Exacerbation; Bilateral Pleural Effusions. Bed requested for [facility] ER HOLD. Status is Observation. Condition is Stable. Problem is an acute exacerbation. Symptoms have improved. dw 08/05 09:57 07:51 08/04/2020 21:40 Hospitalization Ordered by Tyler Holloway MD for Observation. iw Preliminary diagnosis is CHF Exacerbation; Bilateral Pleural Effusions. Bed requested for Telemetry/MedSurg (observation). Status is Observation. Condition is Stable. Problem is an acute exacerbation. Symptoms have improved. bd
--- NOTE | 2020-08-04 21:41 | ER ---
Nurse's Notes [facility] Name: Esmer Flores Age: 85 yrs Sex: Female : 1935 Arrival Date: 08/04/2020 Time: 18:01 Bed 18 Private MD: Cristina Holloway C Diagnosis: CHF Exacerbation;Bilateral Pleural Effusions Presentation: 08/04 18:14 Coronavirus screen: Client denies travel out of the [place] in the last 14 days. ll1 difficulty breathing, shortness of breath, Client presents with at least one sign or symptom that may indicate coronavirus-19. Ebola Screen: Patient denies travel to an Ebola-affected area in the 21 days before illness onset. Initial Sepsis Screen: Does the patient meet any 2 criteria? No. Patient's initial sepsis screen is negative. Does the patient have a suspected source of infection? Yes: Other: CHF. Risk Assessment: Do you want to hurt yourself or someone else? Patient reports no desire to harm self or others. Onset of symptoms was August 01, 2020. 18:14 Method Of Arrival: Ambulatory [facility] 18:14 Acuity: ADITYA 2 ll1 18:15 Chief complaint: Patient states: SOB and leg swelling increasing over the last 3 days. ll1 Has been seeing Dr. Eisenberg for this. No appetite, + weakness. Incontinence has gotten worse this week. Historical: - Allergies: 18:14 No Known Allergies; ll1 - PMHx: 18:14 CHF; Hypertension; High Cholesterol; ll1 - PSHx: 18:14 knee sx; pacemaker; ll1 - Immunization history:: Flu vaccine is not up to date. - Social history:: Smoking status: Patient denies any tobacco usage or history of. Patient/guardian denies using alcohol, street drugs, The patient lives with family. - Family history:: not pertinent. Screenin:20 Abuse screen: Denies threats or abuse. Denies injuries from another. Nutritional jl7 screening: No deficits noted. Tuberculosis screening: No symptoms or risk factors identified. Fall Risk No fall in past 12 months (0 pts). Secondary diagnosis (15 points) dementia, IV access (20 points). Ambulatory Aid- Crutches/Cane/Walker (15 pts). Total Schwab Fall Scale indicates High Risk Score (45 or more points). Fall prevention measures have been instituted. Side Rails Up X 2 Placed Close to Nursing Station Frequent Obs/Assessments Occuring Family Present and informed to notify staff if the need to leave the bedside As available patient and family educated on Fall Prevention Program and Strategies. Assessment: 18:20 General: Appears distressed, uncomfortable, Behavior is cooperative, anxious, restless. jl7 Pain: Complains of pain in right foot and left foot. Neuro: Level of Consciousness is awake, alert, obeys commands. Cardiovascular: Patient's skin is warm and dry. Respiratory: Airway is patent Respiratory effort is even, labored, with retractions, using tripod position, Respiratory pattern is symmetrical, tachypnea. Derm: Skin is dry, Skin is pale, Skin temperature is warm Wound noted dorsum of left foot. 19:30 General: Appears distressed, uncomfortable. Pain: Complains of pain in left foot and wh right foot. Neuro: Level of Consciousness is awake, alert, obeys commands, Oriented to person, place, time, situation, Appropriate for age. Cardiovascular: Heart tones S1 S2. Respiratory: Reports shortness of breath Airway is patent Respiratory effort is even, labored, Respiratory pattern is symmetrical, tachypnea Breath sounds with rales bilaterally. GI: Abdomen is non-distended. : No signs and/or symptoms were reported regarding the genitourinary system. EENT: No signs and/or symptoms were reported regarding the EENT system. Derm: Skin is thin, Skin temperature is warm Wound noted dorsum of left foot. Musculoskeletal: Swelling present in right leg and left leg. 21:00 Reassessment: Patient appears in no apparent distress at this time. No changes from previously documented assessment. Patient and/or family updated on plan of care and expected duration. Pain level reassessed. Patient is alert, oriented x 3, equal unlabored respirations, skin warm/dry/pink. 22:30 Reassessment: Patient appears in no apparent distress at this time. Patient and/or family updated on plan of care and expected duration. Pain level reassessed. Pt sleeping eyes closed. Vital Signs: 18:14 BP 104 / 62; Pulse 52; Resp 24; Temp 97.6; Pulse Ox 97% on R/A; Weight 72.57 kg; Height ll1 5 ft. 5 in. (165.10 cm); 19:14 BP 75 / 40; Pulse 78; Resp 24; Pulse Ox 100% 2 lpm ; jl7 19:37 BP 95 / 64; Pulse 90; Resp 24; Pulse Ox 99% on 2 lpm NC; wh 20:10 BP 94 / 67; Pulse 96; Resp 20; Pulse Ox 98% on 2 lpm NC; wh 21:15 BP 89 / 49; Pulse 89; Resp 20; Pulse Ox 98% on 2 lpm NC; wh 21:38 BP 92 / 67; Pulse 67; Resp 19; Pulse Ox 98% on 2 lpm NC; wh 23:00 BP 95 / 63; Pulse 91; Resp 20; Pulse Ox 98% on 2 lpm NC; wh 18:14 Body Mass Index 26.63 (72.57 kg, 165.10 cm) ll1 ED Course: 18:01 Patient arrived in ED. rg4 18:01 Cristina Holloway MD is Private Physician. rg4 18:15 Triage completed. ll1 18:15 Arm band placed on. ll1 18:18 Sandor Farley RN is Primary Nurse. jl7 18:20 Patient has correct armband on for positive identification. Placed in gown. Bed in low jl7 position. Call light in reach. Side rails up X2. monitoring analyst on. Pulse ox on. NIBP on. Warm blanket given. 18:20 EKG done, by ED staff, reviewed by Amalia Laws MD. jl7 18:45 Mariluz Theodore FNP-C is PHCP. kb 18:45 Amalia Laws MD is Attending Physician. kb 18:46 Mariluz Theodore FNP-C is PHCP. kb 18:46 Amalia Laws MD is Attending Physician. kb 18:54 Amalia Laws MD is Attending Physician. ma2 19:15 Inserted saline lock: 20 gauge in right antecubital area, using aseptic technique. jp3 Blood collected. 19:15 First set of blood cultures drawn by me. jp3 19:18 Initial lab(s) drawn, by me, sent to lab. jp3 19:23 XRAY Chest (1 view) In Process Unspecified. EDMS 19:25 Second set of blood cultures drawn by az. jp3 19:42 Primary Nurse role handed off by Sandor Farley RN mw2 20:01 Attending Physician role handed off by Amalia Laws MD 7 20:01 Dante Thomson MD is Attending Physician. [facility] 20:23 Jessee Tijerina RN is Primary Nurse. 21:24 Notified ED physician of a critical lab result(s). K 6.1. 21:39 Tyler Holloway MD is Hospitalizing Provider. [facility] 23:00 No provider procedures requiring assistance completed. Patient admitted, IV remains in place. 08/05 07:49 Primary Nurse role handed off by Jessee Tijerina RN bd Administered Medications: 08/04 19:32 Drug: Cefepime 1 grams {Note: Given Cefepime 1 gram in 10cc, Per MD discretion.} Route: IVPB; Rate: 200 ml/hr; Infused Over: 30 mins; Site: right antecubital; 23:02 Follow up: Response: No adverse reaction; IV Status: Completed infusion 19:36 Drug: vancoMYCIN 1 grams Route: IVPB; Infused Over: 2 hrs; Site: right antecubital; 23:02 Follow up: Response: No adverse reaction; IV Status: Completed infusion 22:03 Drug: NS 0.9% 500 ml Route: IV; Rate: 75 ml/hr; Site: right antecubital; 23:01 Follow up: Response: No adverse reaction; IV Status: Infusion continued upon admission 22:03 Drug: Kayexalate 45 grams Route: PO; 23:01 Follow up: Response: No adverse reaction 22:05 Drug: Lasix 40 mg {Note: 91/51.} Route: IVP; Site: right antecubital; 23:01 Follow up: Response: No adverse reaction Outcome: 21:40 Decision to Hospitalize by Provider. [facility] 23:00 Admitted to ER Hold. Please see [facility] for further documentation. 23:00 Condition: stable 23:00 Instructed on the need for admit. 08/05 09:57 Patient left the ED. iw Signatures: Dispatcher [employer] EDMS Mariluz Theodore, ALVARADO-C ALVARADO-Justyna Davis Irene, RN RN Padmini Pastor rg4 Sandor Farley RN RN jl7 Jessee Tijerina RN RN wh Amalia Laws MD MD ma2 Grisel Rivas 2 Devan Dangelo 3 Charlie Jennings, AVELINA RN ll1 Dante Thomson MD MD 7
[2020-08-04] MEDS ORDERED: IPRATROPIUM BROM 0.5MG/2.5ML NEB PRN (21:44)
[2020-08-04] MEDS ORDERED: ONDANSETRON 4 MG/2 ML VIAL IV PRN (21:44)
[2020-08-04] MEDS ORDERED: ACETAMINOPHEN 500 MG TAB PO PRN (21:44)
[2020-08-04] MEDS ORDERED: ALBUTEROL 2.5 MG/3 ML NEB SOL NEB PRN (21:44)
[2020-08-04] MEDS ORDERED: MORPHINE 4 MG/ML SYR IV PRN (21:44)
[2020-08-04] MEDS ORDERED: SOD POLYSTYREN SUL 15 GM/60 ML UCUP ONE (22:01)
[2020-08-04] MEDS ORDERED: FUROSEMIDE 40 MG/4 ML VIAL ONE (22:01)
[2020-08-05 00:56] VITALS: BMI 26.5
[2020-08-05 04:36] LABS: Absolute Lymphocytes (CBC) 1.4 K/uL (0.7-4.9); Basophils % 0.6 % (0-1.3); Hematocrit 31.3 % (36.0-45.0); Lymphocytes % 12.2 % (15.3-44.8); MPV 9.2 fL (7.6-11.3); RBC Red Blood Cell Count 3.45 M/uL (3.86-4.86)
[2020-08-05 05:44] LABS: BUN Blood Urea Nitrogen 66 mg/dL (7-18); Bicarbonate 30 mmol/L (21-32); Glucose Level 97 mg/dL (74-106); NT PRO-BNP 1451 pg/mL (<450); Sodium Level 138 mmol/L (136-145); Troponin I < 0.02 ng/mL (0.0-0.045)
[2020-08-05 05:45] LABS: Potassium 6.2 mmol/L (3.5-5.1)
[2020-08-05] MEDS ORDERED: SOD POLYSTYREN SUL 15 GM/60 ML UCUP PO ONE (06:13)
[2020-08-05] MEDS ORDERED: CALCIUM GLUC 10% INJ 4.65 MEQ in NA CHLORIDE 0.9% 100 ML IV ONE (06:15)
[2020-08-05] MEDS ORDERED: CALCIUM GLUCONATE 1 GM IVPB 1 GM/50 ML BAG IV ONE (06:29)
[2020-08-05] MEDS ORDERED: ALBUTEROL 2.5 MG/3 ML NEB SOL NEB ONE ×2 (06:30→07:00)
[2020-08-05] MEDS ORDERED: MORPHINE 2 MG/ML SYR IV PRN (07:12)
--- NOTE | 2020-08-05 07:48 | RAD REPORT ---
EXAM DESCRIPTION: RAD - Chest Single View - 08/05/2020 5:08 am CLINICAL HISTORY: Chest Pain COMPARISON: August 04, August 03 TECHNIQUE: AP portable chest image was obtained 08/05/2020 5:08 am . FINDINGS: There is near complete opacification of the right hemithorax. Aerated lung parenchyma is s till present. Patient has a known large pleural effusion. The image is not marked as being obtained i n supine position though this is suspected. Developing loculations cannot be excluded given the brunner e in appearance. No new or progressive left lung field finding. Heart and vasculature are normal. No pneumothorax. No acute bony abnormality seen. No acute aortic findings suspected. IMPRESSION: Large right pleural effusion is present. There is partial aeration of the lung parenchym a with circumferential pleural fluid. Change in appearance of the right hemithorax could represent developing loculation of pleural fluid o r the film may have been obtained but not marked as being supine or semi-upright. Left hemithorax is stable.
[2020-08-05] MEDS ORDERED: APIXABAN 2.5 MG TABLET PO SCH (09:00)
[2020-08-05] MEDS ORDERED: CEFTRIAXONE 1 GM/NS 50 ML 1 GM/50 ML BAG IV SCH (09:00)
--- NOTE | 2020-08-05 09:19 | RAD REPORT ---
EXAM DESCRIPTION: CT - Thorax Wo Con - 08/05/2020 8:53 am CLINICAL HISTORY: pleural effusion COMPARISON: Chest Single View dated 08/05/2020 TECHNIQUE: Axial 5 mm thick images of the chest were obtained without IV contrast. All CT scans are performed using dose optimization technique as appropriate and may include automated exposure control or mA/KV adjustment according to patient size. FINDINGS: A large right thyroid mass is present at least 4 cm in size only partially imaged on this examination. Follow-up thyroid sonography can be obtained as warranted. Large pleural effusion fills most of the right hemithorax. There is partial atelectasis of all of the right-side lobes with a small amount of aerated parenchyma anteriorly. No definitive loculation. No mass in the aerated portions of the right-side lung parenchyma. Mass or infiltrate within the atelect atic lung cannot be excluded. Small left-sided pleural effusion is present. There is partial left lower lobe atelectasis. No acute left lung parenchymal process. No pleural based mass. No pneumothorax. No abnormal mediastinal or hilar masses or lymphadenopathy seen. No gross aortic or pulmonary artery finding suspected. Assessment is limited in the absence of IV contrast. No pericardial effusion. No chest wall mass or abnormal axillary lymphadenopathy. Minimally displaced posterior right eighth rib fracture. Callus formation is identified indicating edwards bacute age. Limited upper abdomen imaging shows ascites present. Partially imaged omentum shows thickening or lesia ma. There is questionable nodularity. In the right anterior subdiaphragmatic region there is a 2.2 ce ntimeter soft tissue density. IMPRESSION: Limited upper abdomen imaging shows ascites with questionable peritoneal implants and om ental nodularity. Findings raise possibility of a malignant process in the abdomen or pelvis. Follow- up CT imaging may be helpful. Large right pleural effusion fills the majority of the right hemithorax with significant atelectasis changes of all lobes. There is aerated lung parenchyma anteriorly. Loculation is not identified. Small left-sided pleural effusion. Large 4 centimeter right thyroid mass/nodule only partially imaged. Follow-up thyroid sonography can be performed as warranted.
[2020-08-05] MEDS: GALANTAMINE 4 MG TAB PO SCH ×2 (10:45→19:52)
[2020-08-05] MEDS: CEFTRIAXONE/SWI 1gm 1 GM/10 ML SYR IV SCH ×2 (10:46→19:52)
[2020-08-05] MEDS ORDERED: INFLUENZA VACCINE (for 3y+) 0.5 ML DOSE IMVAC ONE (12:00)
[2020-08-05 13:22] LABS: Potassium 5.3 mmol/L (3.5-5.1)
[2020-08-05] MEDS ORDERED: HALOPERIDOL LACT 5 MG/ML INJ IV PRN (13:42)
[2020-08-05] MEDS ORDERED: FUROSEMIDE 40 MG/4 ML VIAL IV STA (13:48)
[2020-08-05 16:43] LABS: Arterial Blood Carboxyhemoglob 1.4 % (0-1.5); Blood Gas Oxyhemoglobin 88.2 % (94-97); Blood O2 Saturation 90.3 % (92-98.5)
[2020-08-05] MEDS: MIRTAZAPINE 15 MG TAB PO SCH (19:52)
[2020-08-06 05:53] LABS: Absolute Lymphocytes (CBC) 1.5 K/uL (0.7-4.9); Basophils % 0.4 % (0-1.3); Hematocrit 29.7 % (36.0-45.0); Lymphocytes % 15.9 % (15.3-44.8); MPV 8.7 fL (7.6-11.3); RBC Red Blood Cell Count 3.32 M/uL (3.86-4.86)
[2020-08-06 07:43] LABS: BUN Blood Urea Nitrogen 59 mg/dL (7-18); Bicarbonate 33 mmol/L (21-32); Folic Acid, (Folate) > 20.0 ng/mL (3.1-17.5); Glucose Level 84 mg/dL (74-106); Magnesium 2.7 mg/dL (1.8-2.4); Potassium 4.4 mmol/L (3.5-5.1); Sodium Level 137 mmol/L (136-145)
--- NOTE | 2020-08-06 08:08 | HP ---
Date of Admission: 08/05/2020 Chief Complaint: Leg swelling and shortness of breath. History Of Present Illness: This is an 85-year-old female patient who was diagnosed to have large pl eural effusion last month in June 2020 and she was referred to Dr. Eisenberg for further evaluatio n and management of this problem. Dr. Eisenberg thought that the patient's large pleural effusion, wh ich is bilateral, is likely due to underlying congestive heart failure problem. The patient's geophysical computer is Dr. Toledo. Dr. Eisenberg started her on spironolactone and since she did not respond, he also increased the dose of spironolactone, but she has not improved any and came into emergency room last night with bilateral leg swelling and shortness of breath. After she was ev aluated, she was admitted to the hospital. I saw her this morning. She was in the emergency room ly ing in bed, not in any distress. Allergies: NO KNOWN ALLERGIES. Medications: 1.Caltrate plus D 1 tablet by mouth 2 times a day. 2.Galantamine 8. 3.Losartan 100 mg p.o. daily. 4.Metoprolol tartrate 25 mg 2 times a day. 5.Xarelto 20 mg daily with evening meal. 6.Rosuvastatin 40 mg daily. Review of Systems: Cardiovascular: As mentioned above. Respiratory: As mentioned above. CLEANING ATTENDANT: Impaired memory and confusion problem due to underlying dementia. 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 Past Surgical History: Pacemaker placement, appendectomy, foot surgery. Family History: Not pertinent. Social History: Negative for smoking, alcohol use. Physical Examination: Vital Signs: Temperature 96.9, pulse 78, respiratory rate 23, blood pressure 88/40, oxygen saturatio n 100% on 3 L nasal cannula oxygen. Height 5 feet 5 inches, weight 159 pounds. General: Awake, alert, oriented, not in distress. HEENT: Head atraumatic, normocephalic. Conjunctivae nonerythematous. Sclerae white. Mouth, no thr ush or edema noted. Ears/Nose, no mass, lesion, discharge noted. Neck: Supple. No JVD, lymph nodes, bruit, thyromegaly noted. Lungs: Diminished air entry in both lower lung ricketts. He is not using accessory muscles of respira tion. Heart: Normal heart sounds, no murmur or gallop. Abdomen: Soft, bowel sounds normal. No guarding, rigidity, tenderness, mass, hepatosplenomegaly, dis tention, or bruit noted. Extremities: Bilateral grade 2 to grade 3 pedal edema extending from thigh all the way to her toes. She has a pink macular rash involving lower legs, ankle, and dorsum feet area on both legs. Skin: Plantar aspect and dorsum aspect of both feet is pink, warm to touch and tender to touch. No open wound. Lymphatics: No lymph node enlargement in neck, supraclavicular, infraclavicular region. Neuro: No focal neurological deficit. Chest: Unremarkable. External Genitalia: Deferred. Rectal: Deferred. Laboratory Data: INR 1.83. COVID-19 test negative. Chest x-ray, large pleural effusion on the righ t side, moderate pleural effusion on the left side. Sodium 136, potassium 6.1, chloride 104, bicarb 30, BUN 63, creatinine 1.63, glucose 107. Liver function tests unremarkable. Troponin less than 0.0 2. This was last night. This morning, sodium 138, potassium 6.2, chloride 107, bicarb 30, BUN 66, c reatinine 1.67, glucose 97. Troponin less than 0.02. ProBNP 1451. Procalcitonin 0.09. White count 12, hemoglobin 11.8, platelets 312. This was yesterday. Today, white count 11.7, hemoglobin 9.9, p latelets 258. CAT scan of the chest done after I evaluated her and it shows large pleural effusion, but also has shown ascites with some changes consistent with peritoneal carcinomatosis. Impression: 1.Pleural effusion. 2.Cellulitis, bilateral legs. 3.Ascites. 4.Rule out peritoneal carcinomatosis. 5.Chronic atrial fibrillation. 6.Chronic anticoagulation therapy. 7.Hyperkalemia. 8.Anemia. 9.Acute kidney injury. 10.Hypertension. 11.Hyperlipidemia. 12.Senile dementia. 13.Osteoarthritis at multiple sites. Plan: Admit patient to hospital for further evaluation and management of this problem. The patient is appropriate for inpatient and is expected to spend 2 midnights in hospital. The patient was given Kayexalate, calcium gluconate, albuterol nebulizer treatment as part of treatment for her hyperkalem ia. We will follow up on blood work after this. Echo with Doppler was ordered. Consult Dr. Estrada stern. Details were discussed with Dr. Eisenberg. We will discontinue Xarelto and in place of that Eliqu is 2.5 mg 2 times a day was started, which later on we discontinued as well, as we were planning to d o some procedure on her. Ceftriaxone will be started for treatment of her cellulitis. The patient r eceived 1 dose of vancomycin and cefepime in the emergency room last night and we will go ahead and c hange antibiotic to ceftriaxone per order. Intake and output will be followed, daily weight will be followed. I will see her tomorrow morning for followup. I did call the patient's daughter and discu ssed details with her about CAT scan finding and I am concerned that the patient probably may have a malignant pleural effusion and considering risks and benefits of thoracentesis versus paracentesis my recommendation at this point is to go ahead and do paracentesis and this was discussed with the carmina rivera's daughter. She understands and agrees and I also called and discussed details with Dr. Eisenberg and he also agrees. So Dr. Eisenberg will make this arrangements with her radiologist. Depending on the biopsy result, we will provide further recommendation. The patient's daughter is interested in h ospice care. We also talked to patient's daughter about advance directives and she has medical power of ip technology transactions attorney for patient and DNR order will be written in the chart per my discussion with the amadeo britton's daughter as she informed me that the patient would not have wanted any heroic measures like CPR, defibrillation, or ventilator support. Total time spent on advanced care planning was 18 minutes. Daylin terrell will repeat blood work tomorrow morning, and depending on her potassium level, we will make further decision if she needs some more Kayexalate or not. Her likely underlying reason for high potassium and acute kidney injury problem is spironolactone and we should not use that again. This was discusse d with the patient's daughter as well. TRINI/MODL Voice ID: [id number]
--- NOTE | 2020-08-06 08:24 | P.CNS ---
Date of Consult: 08/06/20 Reason for Consult: Respiratory distress pleural effusion Chief Complaint: Shortness of breath History of Present Illness: 85 Years of age was evaluated by me as an outpatient for bilateral pleural effusions lower extremity edema and doses of possible diastolic dysfunction. She continued to get worse patient was on spironolactone losartan admitted with significant right-sided pleural effusion and hyperkalemia in addition to possible peritoneal carcinomatosis she also has ascites Allergies No Known Allergies Allergy (Verified 07/07/19 11:58) Home Medications: Losartan Potassium 100 mg PO DAILY AFTER SUPPER 11/17/17 Metoprolol Tartrate [Lopressor*] 25 mg PO BID 11/17/17 Rivaroxaban [Xarelto] 20 mg PO DAILY #30 tab 11/26/17 Galantamine HBr [Razadyne] 8 mg PO BID 07/07/19 Mirtazapine [Remeron] 15 mg PO BEDTIME 07/07/19 Rivaroxaban [Xarelto] 20 mg PO DAILY 08/05/20 Spironolactone 50 mg PO DAILY 08/05/20 - Past Medical/Surgical History Diabetic: No -: hypertension -: high cholesterol -: pacemaker -: cataract 2017 -: appendectomy -: shoulder repair - Social History Alcohol use: Yes CD- Drugs: No Caffeine use: Yes Place of Residence: Home Review of Systems is unable to be obtained Physical Examination Temp Pulse Resp BP Pulse Ox 97.5 F 69 16 101/51 L 95 08/06/20 08:00 08/06/20 08:00 08/06/20 08:00 08/06/20 08:00 08/06/20 08:00 General: Unresponsive Neck: Supple Respiratory: Diminished (Diminished air entry on the right side) Cardiovascular: Regular rate/rhythm, Edema Gastrointestinal: Normal bowel sounds, Soft and benign, Non-distended Laboratory Data (last 24 hrs) 08/05/20 12:52: Sodium 137, Potassium 5.3 H, BUN 62 H, Creatinine 1.58 H, Gl ucose 123 H - Problems (1) Pleural effusion Current Visit: Yes Status: Acute Plan: Patient is 85 years of age admitted with worsening dyspnea and right-sided pleural effusion she also has an effusion on the left side was he was felt that maybe due to diastolic dysfunction as spironolactone was increased recently patient came in with hyperkalemia which is now being resolved with the use of Kayexalate CT scan showed possible peritoneal carcinomatosis with ascites I discussed with Radiology that plan to do a paracentesis tomorrow patient was hypoxic hypercarbic is currently on a BiPAP is unresponsive right now patient is mildly anemic the daughter did call my office at the discuss with the possibility of DNR and hospice care patient is on Eliquis that has been stopped for possible paracentesis tomorrow no evidence of sepsis CT scan shows significant effusion right greater than left patient's overall prognosis is very poor she has been declining
[2020-08-06] MEDS: GALANTAMINE 4 MG TAB PO SCH ×2 (09:00→22:05)
[2020-08-06] MEDS: CEFTRIAXONE/SWI 1gm 1 GM/10 ML SYR IV SCH ×2 (09:00→22:05)
--- NOTE | 2020-08-06 09:27 | ECHO ---
HEIGHT: 5 ft 5 in WEIGHT: 174 lb 9.6 oz DATE OF STUDY: 08/05/[address]: Tyler Holloway MD 2-DIMENSIONAL: YES M.MODE: YES DOPPLER: YES COLOR FLOW: YES TDS: YES PORTABLE: DEFINITY: BUBBLE STUDY: DIAGNOSIS: CONGESTIVE HEART FAILURE CARDIAC HISTORY: CATHERIZATION: NO SURGERY: NO PROSTHETIC VALVE: NO PACEMAKER: YES MEASUREMENTS (cm) DIASTOLIC (NORMALS) SYSTOLIC (NORMALS) IVSd 1.1 (0.6-1.2) LA Diam 4.3 (1.9-4.0) LVEF 79% LVIDd 3.7 (3.5-5.7) LVIDs 2.0 (2.0-3.5) %FS 47% LVPWd 1.1 (0.6-1.2) Ao Diam 2.8 (2.0-3.7) 2 DIMENSIONAL ASSESSMENT: RIGHT ATRIUM: NORMAL LEFT ATRIUM: ENLARGED RIGHT VENTRICLE: DILATED LEFT VENTRICLE: NORMAL TRICUSPID VALVE: MILD TRICUSPID REGURGITATION MITRAL VALVE: MILD MITRAL REGURGITATION PULMONIC VALVE: MILD PULMONIC INSUFFIENCY AORTIC VALVE: NORMAL PERICARDIAL EFFUSION: NONE AORTIC ROOT: NORMAL LEFT VENTRICULAR WALL MOTION: HYPERDYNAMIC LEFT VENTRICLE DOPPLER/COLOR FLOW: SEE BELOW COMMENTS: HYPERDYNAMIC LEFT VENTRICULAR WITH EJECTION FRACTION >70%, NORMAL WALL MOTION. MILDLY DILATED RIGHT VENTRICLE. SEVERE PULMONARY HYPERTENSION WITH RIGHT VENTRICULAR SYSTOLIC PRESSURE >60 mmHg. MILD TRICUSPID REGURGITATION, MILD MITRAL REGURGITATION. TECHNOLOGIST: GIOVANNI NOLASCO
--- NOTE | 2020-08-06 21:31 | PN ---
Date of Progress Note: 08/06/2020 Subjective: The patient was seen this morning for followup. She was on BiPAP, sleeping, not in dist ress. Did not answer any questions this morning as she was sleeping. Objective: Vital Signs: Reviewed. HEENT: Unremarkable. Lungs: Clear to auscultation. Heart: Sounds normal. Abdomen: Soft. Bowel sounds normal. No guarding, rigidity, tenderness, distention. Extremities: Some rash from dorsum foot noted. Redness from dorsal improved and plantar aspect of f oot is better and leg swelling is significantly better. Now has just trace leg edema. Laboratory Data: Sodium 137, potassium 4.4, chloride 101, bicarb 33, BUN 59, creatinine 1.51, glucos e 84. White count 9.2, hemoglobin 9.8, platelets 216. Her blood culture remains negative. Stool oc cult blood is positive. Impression: 1.Pleural effusion. 2.Ascites. 3.Rule out peritoneal carcinomatosis. 4.Cellulitis, bilateral legs. 5.Chronic atrial fibrillation. 6.Chronic anticoagulation therapy. 7.Acute kidney injury. 8.Hyperkalemia. Plan: The patient's renal function is improving. We will not give any more spironolactone. Continu e current antibiotics. Home medications will be continued. The patient's blood pressure is remainin g on the lower side. We will not give any Lasix today. I will see her tomorrow for followup. The p atient will have paracenteses tomorrow. We will go ahead and wait for the paracentesis results before making further recommendation. TRINI/MODL Voice ID: [id number] Report ID: [id number]
[2020-08-06] MEDS: MIRTAZAPINE 15 MG TAB PO SCH (22:05)
[2020-08-07 06:36] LABS: Potassium 3.9 mmol/L (3.5-5.1)
[2020-08-07] MEDS: GALANTAMINE 4 MG TAB PO SCH ×2 (09:00→20:37)
[2020-08-07] MEDS: CEFTRIAXONE/SWI 1gm 1 GM/10 ML SYR IV SCH ×2 (09:13→20:37)
--- NOTE | 2020-08-07 12:40 | P.PN ---
Subjective Date of Service: 08/07/20 Chief Complaint: Respiratory failure Patient's condition has deteriorated she is on BiPAP unresponsive Review of Systems is unable to be obtained Physical Examination - Vital Signs Temperature: 96.8 F Blood Pressure: 97/56 Pulse: 93 Respirations: 18 Pulse Ox (%): 95 - Physical Exam General: Unresponsive Respiratory: Diminished (Diminished air entry on the right side) Assessment & Plan - Problems (Diagnosis) (1) Pleural effusion Current Visit: Yes Status: Acute Plan: Patient has developed respiratory failure not doing well will plan to do a PleurX catheter I have consulted General surgery discuss with the daughter prognosis is poor is quite possible that she has respiratory distress from in significant pleural effusion on the right side patient was acidotic hypoxic hypercapnic hyperkalemia has resolved mildly abnormal renal function
--- NOTE | 2020-08-07 13:38 | P.OP ---
Preoperative diagnosis: RIGHT pleural Effusion Postoperative diagnosis: RIGHT pleural Effusion Primary procedure: Placement of RIGHT Thoracic Pleur-X catheter Anesthesia: Local Estimated blood loss: <1cc Specimen: Pleural Fluid Sent Findings: straw reddish pleural fluid sent Complications: None Drain(s): Other (Pleur X catheter) Transferred to: Other (floor) Condition: Good
--- NOTE | 2020-08-07 13:42 | RAD REPORT ---
EXAM DESCRIPTION: RAD - Chest Single View - 08/07/2020 1:36 pm CLINICAL HISTORY: s/p chest tube placement Chest pain. COMPARISON: Chest Single View dated 08/05/2020; Chest Single View dated 08/04/2020; Chest Pa And Lat ( 2 Views) dated 08/03/2020; Chest Pa And Lat (2 Views) dated 07/18/2020 FINDINGS: Portable technique limits examination quality. A right-sided chest tube has been placed since the prior study. The large right-sided pleural effusio n has significantly diminished in size. Lucency is seen in the right apex suspicious for small pneumo thorax estimated at 10% of lung volume. Heart is enlarged. Single lead pacer device is present.
[2020-08-07] MEDS ORDERED: NA CHLORIDE 0.9% 500 ML ONE (14:15)
[2020-08-07 14:44] LABS: Body Fluid Source PLEURAL
--- NOTE | 2020-08-07 14:48 | OP ---
Date of Procedure: 08/07/2020 Surgeon: Neal Correia MD, Preoperative Diagnosis: Large right pleural effusion with complete opacification of the right hemoth orax. Postoperative Diagnosis: Large right pleural effusion with complete opacification of the right hemot horax. Procedure Performed: Placement of a right thoracic PleurX chest tube catheter. Anesthesia: Local, 1% lidocaine used. Estimated Blood Loss: Less than 1 cc. Specimen: Pleural fluid sent for analysis. Findings: Straw-colored reddish pleural fluid sent. Complication: None. Drains: One PleurX catheter in the right thoracic space. Disposition: The patient remained in the floor in good condition throughout the procedure. Procedure In Detail: After informed was obtained, the patient was prepped and draped in the usual st erile fashion. After adequate anesthesia achieved, anesthetized the area around the 5th intercostal space on the midaxillary line down through subcutaneous tissues and anesthetizing inferior tract made a small javi incision in the skin. Using a finer needle, I cannulated the chest and thoracic space going over the rib. A straw-colored fluid with a slight ready appearance was appreciated. AT this p oint, the wire was advanced at this point and the introducer sheath was removed. At this point, I ma de a small counter incision in the inferior-posterior aspect from the insertion site and using a tunn eling device, passed the PleurX catheter into the subcutaneous tract. At this point, sequential dila tation was performed using Seldinger technique over the wire and the catheter was placed in after wir e was removed. The catheter was in the thoracic space and draining quite well when hooked up to suct ion device. I then cleansed the area once again and secured the 2 incisions with simple interrupted closure using the attached 2-0 nylon suture and a sterile dressing was placed over top. The patient tolerated the procedure well without evidence of complication, remained in the room in good condition throughout the procedure. All counts were correct at the end of the case. TK/MODL Voice ID: [id number] Report ID: [id number]
[2020-08-07 14:50] LABS: Color of fluid Red (COLORLESS)
[2020-08-07 14:51] LABS: Appearance TURBID (CLEAR)
[2020-08-07] MEDS ORDERED: NA CHLORIDE 0.9% 500 ML IV ONE (15:00)
[2020-08-07 16:05] LABS: Body Fluid WBC 254 /mm^3
[2020-08-07] MEDS: MIRTAZAPINE 15 MG TAB PO SCH (20:37)
--- NOTE | 2020-08-08 07:04 | RAD REPORT ---
EXAM DESCRIPTION: RAD - Chest Single View - 08/08/2020 4:45 am CLINICAL HISTORY: chest tube COMPARISON: August 07 TECHNIQUE: AP portable chest image was obtained 08/08/2020 4:45 am . FINDINGS: The small right apical pneumothorax seen on the prior day study appears to a resolved or n early fully resolved. Current examination is not labeled as being performed expiration. This could po tentially underestimate the pneumothorax size. Right-sided pleural effusion continues to diminish but is not fully resolved. No new lung parenchymal process. Lung ricketts are better aerated. Heart size is normal. Vasculature no rmal as well. Right-sided chest tube has not changed position. IMPRESSION: Right apical pneumothorax seen on the prior day study has resolved or nearly fully resol jose. The current examination is not labeled as being performed in expiration. Therefore, a remnant pneumot horax size may be underestimated. Improved aeration of the lung ricketts with continued reduction in the size of the right pleural effusi on.
--- NOTE | 2020-08-08 07:25 | PN ---
Date of Progress Note: 08/07/2020 History Of Present Illness: Patient was seen this morning for followup. Early this morning, nurse teresa ontacted me, informed me that the patient was found unresponsive with IV access that she had pulled o ut and she also had pulled out her oxygen and her oxygen saturation was 65%. BiPAP with oxygen was r eplaced and patient's oxygen saturation started coming well. Hemodynamically, she was stable. It wa s 30-minute interval from the time nursing staff had checked on the patient before they found her lik e this, but once they put oxygen back on, her oxygen started coming back. When I saw her, she was ly ing in bed, not in distress on BiPAP. Objective: Vital Signs: Reviewed. HEENT: Unremarkable. Lungs: Clear to auscultation. No rales. No wheezing. Heart: Sounds normal. Abdomen: Soft. Bowel sounds normal. No guarding, rigidity, tenderness, distention. Extremities: The leg edema has resolved. Redness from lower leg foot has significantly improved. Laboratory Data: Sodium 135, potassium 3.9, chloride 101, bicarb 27, BUN 64, creatinine 1.66, glucos e 173. Impression: 1.Pleural effusion. 2.Rule out peritoneal carcinomatosis. 3.Ascites. 4.Hypertension. 5.Atrial fibrillation. Plan: We will go ahead and continue current medications. Continue oxygen and we will continue to fo llow with Dr. Eisenberg. Patient's overall prognosis is poor. I did talk to Dr. Eisenberg and conside ring the patient requiring so much oxygen support. We did talk about doing thoracentesis with lefty rivera of PleurX catheter where some pleural effusion can be drained on recurrent periodic basis for sym ptomatic treatment. Dr. Eisenberg communicated with Dr. Correia for this. We will see her tomorrow for followup. We will continue current management. TRINI/MODL Voice ID: [id number] Report ID: [id number]
[2020-08-08] MEDS: CEFTRIAXONE/SWI 1gm 1 GM/10 ML SYR IV SCH ×2 (10:38→21:09)
[2020-08-08] MEDS: GALANTAMINE 4 MG TAB PO SCH ×2 (10:38→21:08)
--- NOTE | 2020-08-08 14:23 | P.PN ---
Subjective Date of Service: 08/08/20 Chief Complaint: Respiratory failure Patient is doing much better she insists she had a PleurX catheter placed on the right has more alert responsive she is off the BiPAP Review of Systems General: Weakness Respiratory: Shortness of Breath Physical Examination - Vital Signs Temperature: 97.9 F Blood Pressure: 102/50 Pulse: 84 Respirations: 24 Pulse Ox (%): 98 - Physical Exam General: Alert, Oriented x3 Neck: Supple Respiratory: Clear to auscultation bilaterally - Studies Microbiology Data (last 24 hrs): 08/04/20 05:50 Catheterized Urine [place] Count - Final No growth. 08/04/20 05:50 Catheterized Urine - Final No growth. Assessment & Plan - Problems (Diagnosis) (1) Pleural effusion Current Visit: Yes Status: Acute Plan: Patient is doing much better since she had the PleurX catheter placed and drained significant amount of fluid chest x-rays now clear she did develop some hypotension and was volume resuscitated off to the procedure labs reviewed creatinine is mildly elevated vital signs are now stable oxygenation satisfactory on room air patient is predominantly lymphocytes in the pleural effusion cytology is pending white count is now normal patient has severe pulmonary hypertension right ventricle is dilated quite possible that she has had pulmonary embolism due to right ventricular dilatation could be secondary to diastolic dysfunction recommend increasing Eliquis 2 5 mg twice a day lower extremity venous Doppler
[2020-08-08] MEDS ORDERED: ENOXAPARIN 100 MG/ML SYR SQ SCH (14:26)
--- NOTE | 2020-08-08 18:27 | PN ---
Date of Progress Note: 08/08/2020 Subjective: The patient was seen this morning for followup. No new complaints or problems reported by the patient. She was lying in bed, but actually appeared better today than yesterday. She had th oracentesis done and we were able to remove large volume of pleural fluid from her right pneumothorax . Objective: Vital Signs: Reviewed. HEENT: Unremarkable. Lungs: Clear to auscultation. Heart: Sounds normal. Abdomen: Soft. Bowel sounds normal. No guarding, rigidity, tenderness, or distention. Extremities: No leg edema. Skin: Shows no evidence of cellulitis. She has some rash, which is healing and it is brown in color on the dorsum foot. Compared to before, it was pink in color when she first came in. Impression: 1.Cellulitis, legs. 2.Bilateral pleural effusions. 3.Rule out peritoneal carcinomatosis. 4.Ascites. Plan: We will go ahead and continue current medication. Continue to follow with general surgeon for chest tube management as well as Dr. Eisenberg for pleural effusion management. I will see her tomor row for followup. We will await pathology report on pleural fluid. TRINI/MODL Voice ID: [id number] Report ID: [id number]
[2020-08-08] MEDS ORDERED: APIXABAN 5 MG TABLET PO SCH (21:00)
[2020-08-08] MEDS: MIRTAZAPINE 15 MG TAB PO SCH (21:08)
[2020-08-09 06:10] LABS: Potassium 3.7 mmol/L (3.5-5.1)
[2020-08-09 06:29] LABS: Absolute Lymphocytes (CBC) 1.6 K/uL (0.7-4.9); Basophils % 0.6 % (0-1.3); Hematocrit 34.7 % (36.0-45.0); Lymphocytes % 18.8 % (15.3-44.8); MPV 9.7 fL (7.6-11.3); RBC Red Blood Cell Count 3.92 M/uL (3.86-4.86)
[2020-08-09] MEDS: CEFTRIAXONE/SWI 1gm 1 GM/10 ML SYR IV SCH (08:00)
[2020-08-09] MEDS: GALANTAMINE 4 MG TAB PO SCH (08:00)
[2020-08-09] MEDS ORDERED: ENOXAPARIN 80 MG/0.8 ML SQ SCH (09:00)
--- NOTE | 2020-08-09 09:03 | RAD REPORT ---
EXAM DESCRIPTION: RAD - Chest Single View - 08/09/2020 5:02 am CLINICAL HISTORY: chest tube Chest pain. COMPARISON: Chest Single View dated 08/08/2020; Chest Single View dated 08/07/2020; Chest Single View dated 08/05/2020; Chest Single View dated 08/04/2020 FINDINGS: Portable technique limits examination quality. Right-sided chest tube is noted, unchanged in position. No measurable pneumothorax. Small bilateral p leural effusions persist, slightly larger than on the prior study. Moderate bilateral pulmonary opaci ties suggest pulmonary edema and appear mildly worse than on the comparative study. The heart is mode rately enlarged with a single lead pacer device.Mildly angulated right lateral inferior rib fracture. IMPRESSION: Lung aeration has moderately worsened since the comparative study.
--- NOTE | 2020-08-09 09:06 | P.PN ---
Subjective Date of Service: 08/08/20 Chief Complaint: Respiratory failure Subjective: Improving Physical Examination - Vital Signs Temperature: 97.3 F Blood Pressure: 109/59 Pulse: 82 Respirations: 20 Pulse Ox (%): 97 - Physical Exam General: Alert, In no apparent distress Respiratory: Normal air movement, Other (pleur x functioning well) - Studies Microbiology Data (last 24 hrs): 08/04/20 05:50 Catheterized Urine [place] Count - Final No growth. 08/04/20 05:50 Catheterized Urine - Final No growth. Assessment And Plan - Current Problems (Diagnosis) (1) Pleural effusion Current Visit: Yes Status: Acute Plan: - continue pleurX catheter - supplies ordered and home health consulted - continue medical management per hospitalist and Dr. James - daily chest x rays
--- NOTE | 2020-08-09 09:06 | P.PN ---
Subjective Date of Service: 08/07/20 Chief Complaint: Respiratory failure Subjective: Improving (Patient much improved breathing, off bipap) Physical Examination - Vital Signs Temperature: 97.3 F Blood Pressure: 109/59 Pulse: 82 Respirations: 20 Pulse Ox (%): 97 - Physical Exam General: Alert, In no apparent distress, Cooperative Respiratory: Normal air movement, Other (Pleur X catheter functioning well in RIGHT chest) - Studies Microbiology Data (last 24 hrs): 08/04/20 05:50 Catheterized Urine [place] Count - Final No growth. 08/04/20 05:50 Catheterized Urine - Final No growth. Assessment And Plan - Current Problems (Diagnosis) (1) Pleural effusion Current Visit: Yes Status: Acute Plan: - continue pleurX catheter - supplies ordered and home health consulted - continue medical management per hospitalist and Dr. James - daily chest x rays
--- NOTE | 2020-08-09 09:07 | P.PN ---
Subjective Date of Service: 08/09/20 Chief Complaint: Respiratory failure Subjective: Improving Physical Examination - Vital Signs Temperature: 97.3 F Blood Pressure: 109/59 Pulse: 82 Respirations: 20 Pulse Ox (%): 97 - Physical Exam General: Alert, In no apparent distress, Cooperative Respiratory: Clear to auscultation bilaterally, Normal air movement (pleur x functioning well) - Studies Microbiology Data (last 24 hrs): 08/04/20 05:50 Catheterized Urine [place] Count - Final No growth. 08/04/20 05:50 Catheterized Urine - Final No growth. Assessment And Plan - Current Problems (Diagnosis) (1) Pleural effusion Current Visit: Yes Status: Acute Plan: - continue pleurX catheter - supplies ordered and home health consulted - continue medical management per hospitalist and Dr. James - daily chest x rays
--- NOTE | 2020-08-09 09:46 | CON ---
Date of Consultation: 08/07/2020 Brief History Of Present Illness: The patient is an 85-year-old female with a history of a large right pleural effusion last month in June, was referred to Dr. Eisenberg for that. He had seen the patient's effusion which was bilateral the time but right greater than left, likely due to c ongestive heart failure problem but was uncertain at that time. Dr. Toledo is the patient's cardiol ogist and the patient was started on spironolactone, did not have significant improvement. Increased doses of spironolactone did not seem to improve the swelling and pleural effusion and shortness of b reath. She was as such admitted to the hospital and had worsening pulmonary function and discovered to have a large right pleural effusion. During this admission, she was placed on BiPAP and had short ness of breath and desaturations. As such, I was consulted for placement of a PleurX chest tube on t he right thoracic space for the large right pleural effusion. Past Medical History: Dementia, thyroid nodule, hypertension, hyperlipidemia, chronic atrial fibrill ation, carotid artery stenosis, bilateral osteoarthritis. Past Surgical History: Includes pacemaker, appendectomy, foot surgery. Medications: At home include Caltrate, galantamine, losartan, metoprolol, Xarelto, rosuvastatin. Allergies: NO KNOWN DRUG ALLERGIES. Family History: Noncontributory. Social History: Negative for smoking, alcohol, recreational drug use. Physical Examination: General: At the time of my examination, the patient was on BiPAP, short of breath, difficult to have a conversation, as she was significantly short of breath during the time of my examination. Imaging: She had a chest x-ray which was performed, which showed a large right pleural effusion pres ent with partial aeration of the lung parenchyma with circumferential pleural fluid. The left hemoth orax was stable. She had a followup chest CT as well on 08/05 which was officially read as limited. Upper abdomen shows ascites with questionable peritoneal implants and omental nodularity. Findings raise the possibility of malignant process in the abdomen or pelvis. Followup CT is recommended. La rge right pleural effusion fills majority the right hemithorax with significant atelectatic change of all lobes. There is aerated lung parenchyma anteriorly. Loculations not identified. Small left-si ded pleural effusion. Large 4 cm right thyroid nodule, only partially image. Followup sonography ca n be performed as warranted. Assessment And Plan: This is an 85-year-old female, who comes in with signs and symptoms of a large right pleural effusion. 1.Continue medical management. 2.I have explained the risks, benefits, alternatives to placement of PleurX tunneled catheter includ ing but not limited to bleeding, infection, damage to. 3.surrounding tissues, need for ongoing wound care. The patient agrees to proceed as indicated. MIKEL/SADIA Voice ID: [id number] Report ID: [id number]
--- NOTE | 2020-08-09 12:21 | P.PN ---
Subjective Date of Service: 08/09/20 Chief Complaint: Pleural effusion Patient is doing much better she is back to her baseline her breathing is much better drainage has decreased Review of Systems General: Weakness Respiratory: Shortness of Breath Physical Examination - Vital Signs Temperature: 97.8 F Blood Pressure: 101/58 Pulse: 88 Respirations: 32 Pulse Ox (%): 93 - Physical Exam General: Alert, Oriented x3 Respiratory: Clear to auscultation bilaterally, Diminished Cardiovascular: Regular rate/rhythm - Studies Microbiology Data (last 24 hrs): 08/04/20 05:[address] [place] Count - Final No growth. 08/04/20 05:50 Catheterized Urine - Final No growth. Assessment & Plan - Problems (Diagnosis) (1) Pleural effusion Current Visit: Yes Status: Acute Plan: Patient is doing much better she has a PleurX catheter in place plan to discharge room-air sat is around 92% will not qualify for home O2 will be going to a [facility] for a little while with home health to drain her chest tube at least twice a week for now and depending upon the output the be once a week or intermittently chemistries all reviewed 2 2 admission hyperkalemia consider in using lordosis of spironolactone maybe 25 mg once a day with losartan
[2020-08-09 16:26] VITALS: BP 108/52; TEMP 97.1
[2020-08-09 17:38] VITALS: O2SAT 94
--- NOTE | 2020-09-06 19:27 | DS ---
Date of Discharge: 08/09/2020 Disposition: Discharged to go to jail. Physical Examination: HEENT: Unremarkable. Lungs: Clear to auscultation. Heart: Sounds normal. Abdomen: Soft. Bowel sounds normal. No guarding, rigidity, tenderness, or distention. Extremities: No leg edema. Discharge Medications And Instructions: 1.Continue to take Xarelto, galantamine, and mirtazapine as your were taking before. 2.Stop spironolactone, losartan, and metoprolol. 3.Follow up with Dr. Eisenberg next week at jail to help arrange for this TeleVisit with Dr. Eisenberg's office next week. 4.retirement to contact Dr. Eisenberg for any problem related to chest tube. 5.Fall precautions. Labs Done During This Hospitalization: Initial white count on August 04, 2020 was 12, hemoglobin 11 .8, platelets 312. Last white count today on day of discharge 8.3, hemoglobin 11.2, platelets 222. Her last chemistry today, sodium 138, potassium 3.7, chloride 104, bicarb 31, BUN 41, creatinine 0.91 , glucose 85. Vitamin B12 level 214. Folic acid level more than 20. TSH 2.24. When she first came in, sodium 136, potassium 6.1, chloride 104, bicarb 30, BUN 63, creatinine 1.61, glucose 107. Tropo dheeraj less than 0.02. CRP 54. Her initial chest x-ray had shown large right-sided and moderate left-s ided pleural effusion. CAT scan of the chest showed large 4 cm right thyroid mass/nodule, partially imaged on this test. Limited upper abdomen imaging shows ascites with questionable peritoneal implan ts and omental nodularity, finding raised possibility of malignant process in abdomen or pelvis. Lar ge right pleural effusion fills the majority of the right hemithorax with significant atelectasis rahul nges of all lobes. Loculation is not identified. Hospital Course: This is an 85-year-old female patient, who was admitted to the hospital with leg sw elling and shortness of breath. Please see dictated H and P for more information. After the patient was evaluated, she was admitted to the hospital with significantly large pleural effusion and cellul itis of her both legs. She was also noted to have ascites and some abnormality of the peritoneal maddy ing raising possibility of peritoneal carcinomatosis. All these details were discussed with the carmina ent's daughter. Initially, the patient had altered mental status. She did require chest tube placem ent for drainage procedure and this was done by Dr. Correia. Dr. Eisenberg from Pulmonary was consult ed. Her echocardiogram showed ejection fraction of 79%, severe pulmonary hypertension, mild tricuspi d regurgitation and mild mitral regurgitation. Overall, her condition improved after thoracentesis a nd empiric IV antibiotic that was given to her for her cellulitis of leg. Family made arrangements f or her to go to jail and she was discharged to go to jail in stable condition. Dr. Cristina viramontes has recommended to leave the chest tube in place and he will manage this on outpatient basis. Pleural fluid cytology result was pending at the time of discharge and Dr. Eisenberg will follow up on that. Also, as we are concerned about malignant pleural effusion, I would dictate very poor progn osis for this patient. All those details were discussed with the patient's daughter as well. Final Diagnoses: 1.Pleural effusion. 2.Cellulitis, legs. 3.Ascites. 4.Chronic atrial fibrillation. 5.Chronic anticoagulation therapy. 6.Hyperkalemia. 7.Acute kidney injury. 8.Anemia. 9.Hypertension. 10.Hyperlipidemia. 11.Senile dementia. 12.Osteoarthritis, multiple sites. TRINI/MODL Voice ID: [id number] Report ID: [id number]
== END 2020-08-09 19:10 | DRG 186 ==
LOC: ER 18:00 → ERHOLD 08-05 00:24 → 2ND 08-05 08:33 → OBSVTOIN 08-05 12:58
PROVIDERS: ADMIT Internal Medicine; ATTEND Internal Medicine
PROC: 5A09557 Assistance with Respiratory Ventilation, Greater than 96 Consecutive Hours, Continuous Positive Airway Pressure (ICD-10-PCS; 2020-08-05)
PROC: 0W9930Z Drainage of Right Pleural Cavity with Drainage Device, Percutaneous Approach (ICD-10-PCS; principal; 2020-08-07)
DX: J90 Pleural effusion, not elsewhere classified (principal); J96.02 Acute respiratory failure with hypercapnia; G93.41 Metabolic encephalopathy; L03.116 Cellulitis of left lower limb; R18.8 Other ascites; I48.20 Chronic atrial fibrillation, unspecified; N17.9 Acute kidney failure, unspecified; L03.115 Cellulitis of right lower limb; F03.90 Unspecified dementia, unspecified severity, without behavioral disturbance, psychotic disturbance, mood disturbance, and anxiety; E78.5 Hyperlipidemia, unspecified; M19.90 Unspecified osteoarthritis, unspecified site; E87.5 Hyperkalemia; D64.9 Anemia, unspecified; Z66 Do not resuscitate; Z95.0 Presence of cardiac pacemaker; Z79.01 Long term (current) use of anticoagulants; Z90.49 Acquired absence of other specified parts of digestive tract; Z79.899 Other long term (current) drug therapy; Z20.822 Contact with and (suspected) exposure to COVID-19
CPT/HCPCS: 36415; 71045; 71046; 71250; 80048; 80076; 82150; 82274; 82550; 82553; 82607; 82746; 82805; 82947; 83605; 83690; 83735; 83880; 84145; 84443; 84484; 85025; 85610; 85730; 86140; 87015; 87040; 87070; 87086; 87088; 87102; 87116; 87206; 88108; 88305; 89050; 93005; 93306; 94660; 94760; 96365; 96366; 96375; 97110; 97161; 97530; 99285; G0378; J0610; J0692; J0696; J1940; J2405; J3370; J7040; J7050; U0003

== ENCOUNTER 2020-09-26 22:00 | Inpatient (IN) | payer OTHER ==
[2020-09-26] MEDS ORDERED: METHYLPREDNISOLONE 125 MG INJ ONE (22:53)
[2020-09-26] MEDS ORDERED: FUROSEMIDE 40 MG/4 ML VIAL ONE (22:53)
[2020-09-26] MEDS ORDERED: CEFTRIAXONE/SWI 1gm 1 GM/10 ML SYR ONE (22:53)
[2020-09-26] MEDS ORDERED: FUROSEMIDE 100 MG/10 ML VIAL IV ONE (22:54)
[2020-09-26 23:08] LABS: Arterial Blood Carboxyhemoglob 1.6 % (0-1.5); Blood Gas Oxyhemoglobin 88.7 % (94-97); Blood O2 Saturation 91.1 % (92-98.5)
[2020-09-27 00:44] LABS: Arterial Blood Carboxyhemoglob 1.2 % (0-1.5); Blood Gas Oxyhemoglobin 96.9 % (94-97); Blood O2 Saturation 98.9 % (92-98.5)
[2020-09-27] MEDS ORDERED: RSI MEDICATION KIT IV ONE (01:40)
[2020-09-27] MEDS ORDERED: KETAMINE HCL 500 MG/5 ML VIAL ONE (01:40)
[2020-09-27] MEDS ORDERED: NA CHLORIDE 0.9% 500 ML ONE ×2 (01:42→08:47)
[2020-09-27] MEDS ORDERED: NOREPINEPHRINE 4mg/D5W 250mL 4 MG/250 ML BAG IV ONE (02:03)
[2020-09-27 02:17] LABS: Absolute Lymphocytes (CBC) 0.2 K/uL (0.7-4.9); Basophils % 0.1 % (0-1.3); Hematocrit 29.7 % (36.0-45.0); Lymphocytes % 1.4 % (15.3-44.8); RBC Red Blood Cell Count 3.38 M/uL (3.86-4.86)
[2020-09-27] MEDS ORDERED: CEFEPIME 2 GM VIAL ONE (02:21)
[2020-09-27] MEDS ORDERED: NA CHLORIDE 0.9% 250 ML ONE (02:22)
[2020-09-27] MEDS ORDERED: VANCOMYCIN 1 GM/VIAL ONE (02:22)
[2020-09-27 02:32] LABS: Protime INR 1.34
[2020-09-27 03:01] LABS: ALT/SGPT 9 U/L (12-78); AST/SGOT 16 U/L (15-37); Albumin 1.7 g/dL (3.4-5.0); Alkaline Phosphatase 65 U/L (45-117); Amylase 63 U/L (25-115); BUN Blood Urea Nitrogen 77 mg/dL (7-18); Bicarbonate 24 mmol/L (21-32); Bilirubin Direct 0.2 mg/dL (0-0.2); Bilirubin Total 0.3 mg/dL (0.2-1.0); CKMB Creatine Kinase MB 1.8 ng/mL (0.3-3.6); Creatine Phosphokinase 88 U/L (26-192); Glucose Level 108 mg/dL (74-106); Lipase 153 U/L (73-393); Potassium 5.3 mmol/L (3.5-5.1); Protein, Total 5.4 g/dL (6.4-8.2); Sodium Level 131 mmol/L (136-145); Troponin (Emerg Dept Use Only) < 0.02 ng/mL (0.0-0.045)
[2020-09-27] MEDS ORDERED: FENTANYL CITR 100 MCG/2 ML ONE ×4 (04:07→23:58)
--- NOTE | 2020-09-27 04:41 | EDPHYS ---
Physician Documentation [facility] Name: Esmer Flores Age: 85 yrs Sex: Female : 1935 Arrival Date: 09/26/2020 Time: 22:01 Bed 2 Private MD: ED Physician Amalia Laws HPI: 09/26 22:33 This 85 yrs old Female presents to ER via EMS with complaints of Shortness Of ma2 Breath. 22:33 The patient has shortness of breath at rest. Onset: The symptoms/episode began/occurred ma2 gradually, 1 day(s) ago. Duration: The symptoms are continuous. Associated signs and symptoms: Pertinent positives: productive cough, Pertinent negatives: non-productive cough, diaphoresis, fever, hemoptysis, loss of consciousness. Severity of symptoms: At their worst the symptoms were moderate in the emergency department the symptoms are unchanged. The patient has not experienced similar symptoms in the past. Historical: - Allergies: 22:07 No Known Allergies; ca1 - PMHx: 22:07 CHF; Hypertension; High Cholesterol; Atrial Fib; ca1 - PSHx: 22:07 knee sx; pacemaker; ca1 - Immunization history:: Adult Immunizations unknown. - Social history:: Smoking status: unknown Patient/guardian denies using alcohol, street drugs, The patient lives with family. - Family history:: not pertinent. ROS: 22:33 Constitutional: Negative for fever, chills, and weight loss. ma2 22:33 All other systems are negative. Exam: 22:33 Constitutional: This is a well developed, well nourished patient who is awake, alert, ma2 and in no acute distress. Eyes: Pupils equal round and reactive to light, extra-ocular motions intact. Lids and lashes normal. Conjunctiva and sclera are non-icteric and not injected. Cornea within normal limits. Periorbital areas with no swelling, redness, or edema. ENT: Nares patent. No nasal discharge, no septal abnormalities noted. Tympanic membranes are normal and external auditory canals are clear. Oropharynx with no redness, swelling, or masses, exudates, or evidence of obstruction, uvula midline. Mucous membranes moist. Neck: Trachea midline, no thyromegaly or masses palpated, and no cervical lymphadenopathy. Supple, full range of motion without nuchal rigidity, or vertebral point tenderness. No Meningismus. Chest/axilla: Normal chest wall appearance and motion. Nontender with no deformity. No lesions are appreciated. Cardiovascular: Regular rate and rhythm with a normal S1 and S2. No gallops, murmurs, or rubs. Normal PMI, no JVD. No pulse deficits. Abdomen/GI: Soft, non-tender, with normal bowel sounds. No distension or tympany. No guarding or rebound. No evidence of tenderness throughout. MS/ Extremity: Pulses equal, no cyanosis. Neurovascular intact. Full, normal range of motion. Neuro: Awake and alert, GCS 15, oriented to person, place, time, and situation. Cranial nerves II-XII grossly intact. Motor strength 5/5 in all extremities. Sensory grossly intact. Cerebellar exam normal. Normal gait. 22:33 Respiratory: moderate respiratory distress is noted, Respirations: labored breathing, Breath sounds: rales, that are moderate, are heard diffusely, Respiratory rate: 22 Vital Signs: 22:02 BP 104 / 63; Pulse 110; Resp 33; Temp 96.7(TE); Pulse Ox 78% on Non-rebreather mask; ca1 /12 01:47 BP 92 / 68; Pulse 117; Resp 18; Pulse Ox 100% on ETT vent; rr5 01:50 BP 104 / 82; Pulse 107; Resp 18; Pulse Ox 97% on ETT vent; rr5 02:20 BP 119 / 94; Pulse 105; Resp 18; Pulse Ox 99% on ETT vent; rr5 03:00 BP 100 / 68; Pulse 85; Resp 18; Pulse Ox 100% on ETT vent; rr5 04:18 BP 101 / 67; Pulse 89; Resp 18; Pulse Ox 100% ; em 05:00 BP 99 / 60; Pulse 90; Resp 18; Pulse Ox 96% on ETT vent; rr5 06:00 BP 87 / 76; Pulse 82; Resp 14; Pulse Ox 100% on ETT vent; rr5 06:20 BP 108 / 76; Pulse 87; Resp 14; Pulse Ox 100% on ETT vent; rr5 08:36 Weight 80 kg; hb Procedures: 01:56 Intubation: Ventilated with 100% NRB prior to procedure. Intubated orally using # 4 ma2 Lozano blade with 7.5 mm ETT. was successful on first attempt. Ventilated with ventilator. Tube secured with ETT pollock Placement verified by CXR, CO2 detector with (+) color change, auscultating bilateral breath sounds, O2 saturation after procedure was 100 %. Patient tolerated well. MDM: 09/26 22:02 Patient medically screened. [facility] 22:33 Differential diagnosis: Anemia Anxiety Reaction CHF exacerbation, pneumonia, pulmonary ma2 edema, reactive airway disease. 09/27 04:39 Data reviewed: vital signs, nurses notes. Counseling: I had a detailed discussion with ma2 the patient and/or guardian regarding: the historical points, exam findings, and any diagnostic results supporting the discharge/admit diagnosis, the presence of at least one elevated blood pressure reading (>120/80) during this emergency department visit, the need for further work-up and treatment in the hospital. Response to treatment: the patient's symptoms have markedly improved after treatment. 09/26 22:20 Order name: Amylase, Serum; Complete Time: 04:38 [facility] 09/26 22:20 Order name: Basic Metabolic Panel; Complete Time: 04:38 [facility] 09/26 22:20 Order name: Blood Culture Adult (2) [facility] 09/26 22:20 Order name: CBC with Diff; Complete Time: 02:32 [facility] 09/26 22:20 Order name: Ckmb; Complete Time: 04:38 [facility] 09/26 22:20 Order name: CPK; Complete Time: 04:38 id09/26 22:20 Order name: Lactate [facility] 09/26 22:20 Order name: LFT's; Complete Time: 04:38 [facility] 09/26 22:20 Order name: Lipase; Complete Time: 04:38 [facility] 09/26 22:20 Order name: Procalcitonin; Complete Time: 02:32 [facility] 09/26 22:20 Order name: Protime (+inr); Complete Time: 04:38 [facility] 09/26 22:20 Order name: Ptt, Activated; Complete Time: 04:38 [facility] 09/26 22:20 Order name: Troponin (emerg Dept Use Only); Complete Time: 04:38 id09/26 22:20 Order name: Urine Microscopic Only [facility] 09/26 22:20 Order name: ABG; Complete Time: 04:38 [facility] 09/26 23:31 Order name: ABG: after 1 hour on bipap; Complete Time: 04:38 ma2 09/26 23:54 Order name: Lactate; Complete Time: 00:43 EDMS 09/27 01:50 Order name: COVID-19 : Document "Date of Symptom Onset" if Symptomatic. 2 09/27 02:15 Order name: Glucose, Ancillary Testing; Complete Time: 02:32 EDMS 09/27 03:07 Order name: SARS-COV-2 RT PCR; Complete Time: 04:38 EDMS 09/27 04:59 Order name: Troponin I EDMS 09/27 04:59 Order name: Troponin I EDMS 09/27 04:59 Order name: Troponin I EDMS 09/27 04:59 Order name: Basic Metabolic Panel EDMS 09/27 04:59 Order name: Basic Metabolic Panel EDMS 09/27 04:59 Order name: CKMB Creatine Kinase MB EDMS 09/27 04:59 Order name: CKMB Creatine Kinase MB EDMS 09/27 04:59 Order name: CKMB Creatine Kinase MB EDMS 09/26 22:20 Order name: Chest Single View XRAY ma2 09/26 22:20 Order name: BIPAP id2 09/27 01:32 Order name: Chest Single View XRAY rr5 09/27 04:59 Order name: CKMB Creatine Kinase MB EDMS 09/27 04:59 Order name: Creatine Phosphokinase EDMS 09/27 04:59 Order name: Creatine Phosphokinase EDMS 09/27 04:59 Order name: Creatine Phosphokinase EDMS 09/27 04:59 Order name: Creatine Phosphokinase EDMS 09/27 04:59 Order name: Lipid Profile EDMS 09/27 04:59 Order name: Lipid Profile EDMS 09/27 04:59 Order name: Magnesium EDMS 09/27 04:59 Order name: Magnesium EDMS 09/27 04:59 Order name: Troponin I EDMS 09/27 04:59 Order name: Troponin I EDMS 09/27 04:59 Order name: CBC with Automated Diff EDMS 09/27 04:59 Order name: CBC with Automated Diff EDMS 09/27 05:54 Order name: ABG em 09/27 06:02 Order name: ABG Arterial Blood Gas EDMS 09/27 08:21 Order name: Glucose, Ancillary Testing ED[facility] 09/27 09:06 Order name: Glucose, Ancillary Testing ED[facility] 09/27 12:14 Order name: Glucose, Ancillary Testing [facility] 09/27 13:20 Order name: RAD [facility] 09/27 17:36 Order name: Glucose, Ancillary Testing [facility] 09/27 18:33 Order name: CBC with Automated Diff [facility] 09/27 19:04 Order name: Basic Metabolic Panel [facility] 09/27 19:07 Order name: CBC Smear Scan [facility] 09/27 22:14 Order name: Glucose, Ancillary Testing [facility] 09/28 05:58 Order name: ABG Arterial Blood Gas [facility] 09/28 08:09 Order name: Glucose, Ancillary Testing [facility] 09/28 11:53 Order name: Glucose, Ancillary Testing [facility] 09/28 16:34 Order name: Glucose, Ancillary Testing [facility] 09/28 21:00 Order name: Glucose, Ancillary Testing [facility] 09/26 22:20 Order name: Accucheck; Complete Time: 07:27 ma2 09/26 22:20 Order name: Cardiac monitoring; Complete Time: 22:22 ma2 09/26 22:20 Order name: EKG - Nurse/Tech; Complete Time: 22:42 ma2 09/26 22:20 Order name: IV Saline Lock - Large Bore; Complete Time: 02:27 ma2 09/26 22:20 Order name: Labs collected and sent; Complete Time: 02:28 ma2 09/26 22:20 Order name: O2 Per Protocol; Complete Time: 22:42 ma2 09/26 22:20 Order name: O2 Sat Monitoring; Complete Time: 22:42 ma2 09/26 23:43 Order name: Labs - recollect needed; Complete Time: 02:27 mw2 09/27 01:42 Order name: Intubation Setup; Complete Time: 01:42 rr5 09/27 04:59 Order name: Respiratory Therapy Consult; Complete Time: 14:15 [facility] 09/27 13:57 Order name: CXR XRAY eb 09/27 14:39 Order name: RAD [facility] 09/27 16:50 Order name: CT [facility] 09/28 11:24 Order name: RAD [facility] Administered Medications: 09/26 22:21 Drug: Rocephin 1 grams Route: IV; Rate: calculated rate; Site: left forearm; zb 09/27 00:30 Follow up: Response: No adverse reaction; IV Status: Completed infusion; IV Intake: [id number] 09/26 22:21 Drug: Lasix 60 mg Route: IVP; Site: left forearm; b 09/27 02:24 Follow up: Response: No adverse reaction em 09/26 22:21 Drug: MethylPrednisoLONE 125 mg Route: IVP; Site: left forearm; zb 09/27 02:25 Follow up: Response: No adverse reaction em 01:29 Drug: Ketamine 100 mg {Note: right Ej.} Route: IVP; Site: Other; rr5 02:24 Follow up: Response: No adverse reaction em 01:29 Drug: Rocuronium 30 mg {Note: right EJ.} Route: IVP; Site: Other; rr5 02:24 Follow up: Response: No adverse reaction em 02:05 Drug: Cefepime 1 grams Route: IVPB; Rate: 200 ml/hr; Infused Over: 30 mins; Site: Other;em 02:35 Follow up: Response: No adverse reaction; IV Status: Completed infusion em 02:36 Drug: vancoMYCIN 1 grams Route: IVPB; Infused Over: 2 hrs; Site: Other; em 04:30 Follow up: Response: No adverse reaction; IV Status: Completed infusion; IV Intake: rr5 250ml 03:56 Drug: fentaNYL (PF) 50 mcg Route: IVP; Site: right jugular; em 05:00 Follow up: Response: No adverse reaction; RASS: Drowsy (-1) rr5 Disposition: 04:39 Critical Care:. [facility] Disposition: 09/27/20 04:40 Hospitalization ordered by Tyler Holloway for Inpatient Admission. Preliminary diagnosis are Acute combined systolic (congestive) and diastolic (congestive) heart failure, Acute respiratory failure. - Bed requested for [facility] ER HOLD. - Status is Inpatient Admission. mw - Condition is Stable. - Problem is new. - Symptoms are unchanged. Critical care time excluding procedures: 04:39 Critical care time: Bedside Care: 35 minutes, Consultation: 10 minutes, Family ma2 Intervention: 5 minutes. Total time: 50 minutes Signatures: Dispatcher [employer] Kasie Bravo RN Hannah Vang RN RN dw Munoz, Edgar, RN RN em Antunez, Elena, RN RN ea Alzahri, Mohammad, MD MD [facility] Grisel Rivas [facility] Samy Brooks RN RN rr5 Latesha Bunn, RN RN ca1 Carli Barber RN RN zb Corrections: (The following items were deleted from the chart) 02:10 01:50 CORONAVIRUS ordered. EDMS EDMS 06:09 04:40 Hospitalization Ordered by Tyler Holloway MD for Inpatient Admission. Preliminary dw diagnosis is Acute combined systolic (congestive) and diastolic (congestive) heart failure; Acute respiratory failure. Bed requested for Intensive Care Unit. Status is Inpatient Admission. Condition is Stable. Problem is new. Symptoms are unchanged. ma2 09/29 04:11 0312 06:09 09/27/2020 04:40 Hospitalization Ordered by Tyler Holloway MD for Inpatient mw Admission. Preliminary diagnosis is Acute combined systolic (congestive) and diastolic (congestive) heart failure; Acute respiratory failure. Bed requested for [facility] ER HOLD. Status is Inpatient Admission. Condition is Stable. Problem is new. Symptoms are unchanged. dw
--- NOTE | 2020-09-27 04:41 | ER ---
Nurse's Notes [facility] Name: Esmer Flores Age: 85 yrs Sex: Female : 1935 Arrival Date: 09/26/2020 Time: 22:01 Bed 2 Private MD: Diagnosis: Acute combined systolic (congestive) and diastolic (congestive) heart failure;Acute respiratory failure Presentation: 09/26 22:02 Chief complaint: EMS states: Pt from [place], called in for respiratory distress and ca1 difficulty breathing started 30 mins prior to arrival on scene. Upon arrival on scene pt O2 sat at 86% at 4LPM O2 via NC. Noticed fingers and toes cyanotic, R foot cyanotic. Placed on NRB O2 sat at mid 90s. Pt nods to respond, [facility] reports pt normally talkative and A \T\ Ox4. Last VS, 110/86, HR 102, RR 18, 95% on NRB. Coronavirus screen: difficulty breathing, Client presents with at least one sign or symptom that may indicate coronavirus-19. Standard/surgical mask placed on the client. Provider contacted for isolation considerations. Ebola Screen: Patient negative for fever greater than or equal to 101.5 degrees Fahrenheit, and additional compatible Ebola Virus Disease symptoms Patient denies exposure to infectious person. Patient denies travel to an Ebola-affected area in the 21 days before illness onset. No symptoms or risks identified at this time. Risk Assessment: Do you want to hurt yourself or someone else? Patient reports no desire to harm self or others. Onset of symptoms was September 26, 2020. 22:02 Method Of Arrival: EMS: [facility] ca1 22:02 Acuity: ADITYA 2 ca1 22:02 Initial Sepsis Screen: Does the patient meet any 2 criteria? RR > 20 per min. HR > 90 ca1 bpm. Yes Does the patient have a suspected source of infection? Yes: Productive cough/pneumonia If YES to both, name of provider notified: Amalia Laws MD. Triage Assessment: 22:50 Respiratory: Onset: The symptoms/episode began/occurred today, the patient has severe zb shortness of breath. Historical: - Allergies: 22:07 No Known Allergies; ca1 - PMHx: 22:07 CHF; Hypertension; High Cholesterol; Atrial Fib; ca1 - PSHx: 22:07 knee sx; pacemaker; ca1 - Immunization history:: Adult Immunizations unknown. - Social history:: Smoking status: unknown Patient/guardian denies using alcohol, street drugs, The patient lives with family. - Family history:: not pertinent. Screenin:50 Abuse screen: Denies threats or abuse. Denies injuries from another. Nutritional zb screening: No deficits noted. Tuberculosis screening: No symptoms or risk factors identified. Fall Risk No fall in past 12 months (0 pts). Secondary diagnosis (15 points) IV access (20 points). Ambulatory Aid- Crutches/Cane/Walker (15 pts). Gait- Impaired (20 pts.). Mental Status- Overestimates/Forgets Limitations (15 pts.). Total Schwab Fall Scale indicates High Risk Score (45 or more points). Fall prevention measures have been instituted. Side Rails Up X 2 Placed Close to Nursing Station Frequent Obs/Assessments Occuring As available patient and family educated on Fall Prevention Program and Strategies. Assessment: 22:30 General: Appears distressed, uncomfortable, Behavior is inappropriate for age, zb uncooperative. Pain: Unable to use pain scale. Patient is disoriented. Pain: Unable to use pain scale. Neuro: Level of Consciousness is awake, alert, listless, Oriented to none. Cardiovascular: Heart tones S1 S2 present Capillary refill is > 3 seconds is sluggish in bilateral fingers toes Edema pitting to Generalized. Rhythm is irregular. Respiratory: Airway is patent Respiratory effort is labored, shallow, weak, Breath sounds are coarse bilaterally. GI: Abdomen is round distended, Bowel sounds present X 4 quads. firm x4. :. EENT: No signs and/or symptoms were reported regarding the EENT system. Derm: Skin is fragile, is thin, with poor turgor Skin is pale. Musculoskeletal: Bony deformity noted of bilateral feet. Swelling present in generalized. 22:35 Reassessment: RT placed pt on BiPAP. zb 09/27 00:45 Reassessment: medrano placed 0- output. zb 01:35 Respiratory: Ventilator assessment: ET Tube: 7.5 20 cm. at lip. Tidal Volume: 500 rr5 Respiratory Rate: 18 FiO2: 70 PEEP: 5 HOB > 30 degrees. Patient repositioned to supine position. 01:50 Reassessment: [id number] beverly daughter. rr5 02:20 Reassessment: provider with verbal order to adjust the ET, pull 1 cm. RT readjust the rr5 tube. 02:50 Reassessment: spoke to maddison [facility] staff from [facility] updated for the status. rr5 03:30 Reassessment: Patient appears in no apparent distress at this time. vital signs taken rr5 and recorded. 04:15 Reassessment: Pt resting with eyes closed, ETT in place, resp assisted. Ajay breath em sounds present. NG tube in place to low intermittent suction. Medrano catheter to bedside drain. IV sites intact patent with fluid infusing. No erythema or edema noted. 05:50 Reassessment: RT at bedside repeat ABG done. rr5 Vital Signs: 09/26 22:02 BP 104 / 63; Pulse 110; Resp 33; Temp 96.7(TE); Pulse Ox 78% on Non-rebreather mask; ca1 09/27 01:47 BP 92 / 68; Pulse 117; Resp 18; Pulse Ox 100% on ETT vent; rr5 01:50 BP 104 / 82; Pulse 107; Resp 18; Pulse Ox 97% on ETT vent; rr5 02:20 BP 119 / 94; Pulse 105; Resp 18; Pulse Ox 99% on ETT vent; rr5 03:00 BP 100 / 68; Pulse 85; Resp 18; Pulse Ox 100% on ETT vent; rr5 04:18 BP 101 / 67; Pulse 89; Resp 18; Pulse Ox 100% ; em 05:00 BP 99 / 60; Pulse 90; Resp 18; Pulse Ox 96% on ETT vent; rr5 06:00 BP 87 / 76; Pulse 82; Resp 14; Pulse Ox 100% on ETT vent; rr5 06:20 BP 108 / 76; Pulse 87; Resp 14; Pulse Ox 100% on ETT vent; rr5 08:36 Weight 80 kg; hb ED Course: 09/26 22:01 Patient arrived in ED. ca1 22:02 Amalia Laws MD is Attending Physician. ma2 22:06 Triage completed. ca1 22:07 Arm band placed on right wrist. ca1 22:16 Carli Barber RN is Primary Nurse. zb 22:19 Beverly Meier [phone] patient's daughter. mw2 22:35 EKG done, by ED staff, reviewed by Amalia Laws MD. zb 22:50 Patient has correct armband on for positive identification. Placed in gown. Bed in low zb position. Call light in reach. Side rails up X 1. information technology security manager on. Pulse ox on. NIBP on. Door closed. Noise minimized. Warm blanket given. 09/27 00:45 Medrano cath inserted, using sterile technique, 16 Fr., by ar, balloon inflated, to zb gravity drainage. 00:58 Chest Single View XRAY In Process Unspecified. EDMS 01:15 Inserted saline lock: 24 gauge in right ,using aseptic technique. left abdomen area. rr5 01:20 Inserted saline lock: 18 gauge in right EJ, using aseptic technique. ,using aseptic rr5 technique. inserted by tiny. 01:30 Assisted provider with intubation using 7.5 mm ETT via oral route. ET tube secured at rr5 20cm at the lips. Set up intubation tray. Intubated by Amalia Laws MD Placement verified by CO2 detector w/ + color change, auscultating bilateral breath sounds, End-tidal CO2 montioring CXR, Patient tolerated well. 01:35 OG tube in placed by Ludy QUAN verify by gastric content, auscultation and chest xray. rr5 01:45 Chest Single View XRAY In Process Unspecified. EDMS 02:35 COVID swab sent to lab. rr5 04:40 Tyler Holloway MD is Hospitalizing Provider. ma2 05:00 Patient admitted, IV remains in place. intact, No redness/swelling at site. rr5 14:15 ABG Sent. eb Administered Medications: 09/26 22:21 Drug: Rocephin 1 grams Route: IV; Rate: calculated rate; Site: left forearm; zb 09/27 00:30 Follow up: Response: No adverse reaction; IV Status: Completed infusion; IV Intake: [id number] 09/26 22:21 Drug: Lasix 60 mg Route: IVP; Site: left forearm; zb 09/27 02:24 Follow up: Response: No adverse reaction em 09/26 22:21 Drug: MethylPrednisoLONE 125 mg Route: IVP; Site: left forearm; zb 09/27 02:25 Follow up: Response: No adverse reaction em 01:29 Drug: Ketamine 100 mg {Note: right Ej.} Route: IVP; Site: Other; rr5 02:24 Follow up: Response: No adverse reaction em 01:29 Drug: Rocuronium 30 mg {Note: right EJ.} Route: IVP; Site: Other; rr5 02:24 Follow up: Response: No adverse reaction em 02:05 Drug: Cefepime 1 grams Route: IVPB; Rate: 200 ml/hr; Infused Over: 30 mins; Site: Other;em 02:35 Follow up: Response: No adverse reaction; IV Status: Completed infusion em 02:36 Drug: vancoMYCIN 1 grams Route: IVPB; Infused Over: 2 hrs; Site: Other; em 04:30 Follow up: Response: No adverse reaction; IV Status: Completed infusion; IV Intake: rr5 250ml 03:56 Drug: fentaNYL (PF) 50 mcg Route: IVP; Site: right jugular; em 05:00 Follow up: Response: No adverse reaction; RASS: Drowsy (-1) rr5 Intake: 09/26 15:06 IV: 100ml; Total: 100ml. zb 15:13 IV: 250ml; Total: 350ml. zb 18:00 IV: 100ml; Total: 450ml. zb 18:38 IV: 50ml; Total: 500ml. zb 23:06 IV: 300ml; Total: 800ml. zb 03 00:30 IV: 10ml; Total: 810ml. rr5 00:45 PO: 0ml; Total: 810ml. zb 04:30 IV: 250ml; Total: 1060ml. rr5 Output: 00:45 Urine: 0ml; Total: 0ml. zb Outcome: 04:40 Decision to Hospitalize by Provider. va2 09/29 04:11 Patient left the ED. mw Signatures: Dispatcher [employer] EDIN Kasie Lebron RN RN David Patino RN Elli Lange RN RN hb Alzahri, Mohammad, MD MD [facility] Grisel Rivas [facility] Kinsey Gonzalez Raymond, RN RN rr5 Latesha Bunn RN RN ca1 Brown, Zipporah, RN RN zb Corrections: (The following items were deleted from the chart) 09/26 23:04 23:01 Response: No adverse reaction; IV Status: Completed infusion; IV Intake: 1435ml zbzb 09/27 03:13 01:50 BP 104 / 82; Pulse 107bpm; Resp 18bpm; Pulse Ox 97%; rr5 rr5
[2020-09-27 06:00] LABS: Arterial Blood Carboxyhemoglob 1.7 % (0-1.5); Blood Gas Oxyhemoglobin 93.4 % (94-97)
[2020-09-27] MEDS: METHYLPREDNISOLONE 40 MG INJ IV SCH ×3 (06:00→18:00)
[2020-09-27] MEDS: Levofloxacin 750mg IV 750 MG/150 ML BAG IV SCH (07:00)
[2020-09-27] MEDS: INSULIN -REGULAR HUMAN 50 UNIT/0.5 ML ML SQ SCH ×4 (08:00→21:00)
--- NOTE | 2020-09-27 08:40 | RAD REPORT ---
EXAM DESCRIPTION: RAD - Chest Single View - 09/26/2020 11:40 pm CLINICAL HISTORY: CONGESTION Chest pain. COMPARISON: Chest Single View dated 08/09/2020; Chest Single View dated 08/08/2020; Chest Single View dated 08/07/2020; Chest Single View dated 08/05/2020; Chest Single View dated 09/27/2020 FINDINGS: Portable technique limits examination quality. Unchanged position of right chest tube noted. Complete opacification left hemithorax is present presu mably related to pleural effusion. Small right pleural effusion noted. Heart size cannot be adequatel y assessed. Single lead pacer device is present.
[2020-09-27] MEDS ORDERED: D5 0.9 NS 1,000 ML IV ONE ×2 (08:42→18:07)
[2020-09-27] MEDS ORDERED: D50W 25 GM/50 ML SYRINGE IV ONE ×2 (08:42→08:50)
[2020-09-27] MEDS ORDERED: SODIUM CHL 0.9% 1000 ML BAG IV ONE (08:51)
[2020-09-27] MEDS ORDERED: NA CHLORIDE 0.9% 2,000 ML ONE (08:54)
[2020-09-27] MEDS: FUROSEMIDE 40 MG/4 ML VIAL IV SCH ×2 (09:00→17:00)
[2020-09-27] MEDS: ENOXAPARIN 30 MG/0.3 ML SQ SCH (09:00)
[2020-09-27] MEDS ORDERED: Levofloxacin 750mg IV 750 MG/150 ML BAG IV ONE (10:03)
[2020-09-27] MEDS ORDERED: ENOXAPARIN 30 MG/0.3 ML SQ ONE (10:04)
[2020-09-27] MEDS ORDERED: FUROSEMIDE 40 MG/4 ML VIAL ONE (10:04)
[2020-09-27] MEDS ORDERED: METHYLPREDNISOLONE 40 MG INJ ONE ×2 (10:04→14:56)
[2020-09-27] MEDS: FENTANYL CITR 100 MCG/2 ML IV PRN ×3 (10:15→23:40)
[2020-09-27] MEDS: D5 0.9 NS 1,000 ML IV SCH (11:23)
--- NOTE | 2020-09-27 13:20 | RAD REPORT ---
EXAM DESCRIPTION: [facility] Single View09/27/2020 12:54 pm CLINICAL HISTORY: Shortness of breath COMPARISON: September 27 FINDINGS: No pneumothorax seen status post central venous line placement attempt. Right chest tube unchanged in position Endotracheal tube has its tip at the proximal aspect of the kelly. Unchanged complete opacification left hemithorax. IMPRESSION: Endotracheal tube with its tip at the proximal aspect the kelly. It should be retracted 2 centimeters. No pneumothorax Complete opacification left hemithorax. I suspect most of this represents atelectasis. There is also component of pleural effusion
[2020-09-27] MEDS ORDERED: NA CHLORIDE 0.9% 1,000 ML ONE (13:58)
--- NOTE | 2020-09-27 14:38 | RAD REPORT ---
[facility]25 pm CLINICAL HISTORY: Device placement/central venous catheter placement IMPRESSION: Central venous catheter has been placed into the superior vena cava. No pneumothorax Endotracheal tube has been retracted with its tip several centimeters above the kelly overlying the aortic arch. It is in good position
--- NOTE | 2020-09-27 14:40 | P.OP ---
Date of Service: 09/27/20 Preoperative diagnosis: Lack of vascular access Postoperative diagnosis: The same Procedure performed: Insertion of left subclavian catheter Surgeon: Dr. Sanchez Findings and technique: The patient was positioned on the ER bed with a roll between her shoulders. After a surgical time-out, the area of the left upper chest was prepped with a DuraPrep solution, and she was draped in usual aseptic manner. The patient was now placed in the Trendelenburg position. The area of the left so clavicular area was infiltrated with 1% lidocaine. A finer needle was used to cannulate the left subclavian vein. Good venous return, having been obtained, the guidewire was passed down through the needle. The needle was removed leaving the guidewire in place. A small skin incision was made at the area where the guidewire entered the skin. The dilator was passed over the guidewire. It passed easily. The catheter was now placed over the guidewire and using a modified Seldinger technique, was left in position. The retainer clip was placed on the catheter and it was sutured in place. A catheter was then flushed in the usual manner with a saline solution. The patient was taken out of Trendelenburg at this point. A sterile dressing was applied. A chest x-ray is pending. Estimated blood loss: less than 10 cc. The patient was in the same condition at the end of the procedure.
[2020-09-27] MEDS: NOREPINEPHRINE 4 MG in D5W 250 ML IV PRN (14:46)
[2020-09-27] MEDS ORDERED: D5 0.45 NS 1,000 ML IV ONE (14:56)
--- NOTE | 2020-09-27 16:50 | RAD REPORT ---
EXAM DESCRIPTION: CT - Thorax Wo Con - 09/27/2020 4:21 pm CLINICAL HISTORY: sob/respiratory failure COMPARISON: July 2020 TECHNIQUE: Computed axial tomography of the chest was obtained. Contrast was not requested. All CT scans are performed using dose optimization technique as appropriate and may include automated exposure control or mA/KV adjustment according to patient size. FINDINGS: The evaluation of mediastinum, joey and vessels is limited secondary to lack of IV contras t administration. Right thyroid nodule unchanged. Large left pleural effusion with passive atelectasis. Small to moderate right pleural effusion. Mild ground-glass opacities right lung with mild right lowe r lobe atelectasis Endotracheal tube with its tip several centimeters above the kelly. Tip of a nasogastric tube is not included the field. Large amount of ascites. A 10 centimeter fluid collection is present within left lateral subcutaneous tissues of the upper abd omen. 16 millimeter lobulated soft tissue structure within anterior fat of the lower left chest. A right chest tube in place IMPRESSION: Large left pleural effusion with passive atelectasis Small to moderate right pleural Large amount of ascites within the abdomen
[2020-09-27] MEDS ORDERED: ALBUMIN HUMAN 25% 0 ML IV ONE (17:32)
[2020-09-27] MEDS ORDERED: ALBUMIN HUMAN 25% 200 ML IV ONE (18:00)
--- NOTE | 2020-09-27 18:04 | RAD REPORT ---
EXAM DESCRIPTION: ADDENDUM #1 THIS REPORT CONTAINS FINDINGS THAT MAY BE CRITICAL TO PATIENT CARE: The findings in the impression, i ncluding the details of the endotracheal tube placement, were called directly to Dr. Amalia Laws by Sania Laird 09/27/2020 2:11 AM EXTERIOR DOOR INSTALLER .The results were acknowledged and understood. Electronically signed by: Miguel Ángel Rodriguez MD 09/27/2020 2:26 AM EXTERIOR DOOR INSTALLER End of Addendum EXAM: XR Chest, 1 View CLINICAL HISTORY: The patient is 85 years old and is Female; post intubation TECHNIQUE: Frontal view of the chest. COMPARISON: No relevant prior studies available. FINDINGS: Lungs: Opacification of the left hemithorax. Hazy airspace opacification of the right lung. Pleural space: Right pleural effusion. No appreciable pneumothorax. Heart: Unremarkable. Mediastinum: Unremarkable. Bones/joints: Degenerative changes of the glenohumeral joints. Vasculature: Aortic calcifications. Tubes, lines and devices: There is an endotracheal tube with tip terminating at the kelly. Left-sided pacemaker. There is a right-sided chest tube in place. There is a nasogastric tube coursing below the diaphragm and outside the field of view. Other findings: No prior imaging is available for comparison. IMPRESSION: 1. There is an endotracheal tube with tip terminating at the kelly. 2. Opacification of the left hemithorax. 3. Right pleural effusion. 4. Hazy airspace opacification of the right lung. 5. No appreciable pneumothorax. 6. Right chest tube in place. Electronically signed by: Miguel Ángel Rodriguez MD 09/27/2020 2:07 AM EXTERIOR DOOR INSTALLER Due to temporary technical issues with the PACS/Fluency reporting system, reports are being signed by the in house radiologists without review as a courtesy to insure prompt reporting. The interpreting radiologist is fully responsible for the content of the report.
[2020-09-27 18:31] LABS: Absolute Lymphocytes (CBC) 0.5 K/uL (0.7-4.9); Basophils % 0.1 % (0-1.3); Lymphocytes % 3.3 % (15.3-44.8); MPV 8.1 fL (7.6-11.3); RBC Red Blood Cell Count 3.25 M/uL (3.86-4.86)
[2020-09-27 18:51] LABS: Potassium 5.1 mmol/L (3.5-5.1)
[2020-09-27 19:06] LABS: Blood Morphology Comment NOT SEEN (NOT SEEN); Platelet Estimate ADEQ; White Blood Cell Scan OK (OK)
[2020-09-27] MEDS ORDERED: ROCURONIUM 50 MG/5 ML VIAL IV ONE (19:08)
[2020-09-27] MEDS ORDERED: ETOMIDATE 20 MG/10 ML VIAL IV ONE (19:08)
[2020-09-27] MEDS ORDERED: SUCCINYLCHOLINE 20 MG/ML (10 ML) IV ONE (19:08)
[2020-09-27] MEDS: FAMOTIDINE 20 MG/2 ML VIAL IV SCH (21:00)
[2020-09-27] MEDS ORDERED: FAMOTIDINE 20 MG/2 ML VIAL IV ONE (22:13)
--- NOTE | 2020-09-27 23:03 | HP ---
Date of Admission: 09/27/2020 Chief Complaint: Shortness of breath. History Of Present Illness: Ms. Flores is a very pleasant patient, who was under my care for last s everal years until July of this year when she was admitted to hospital and upon discharge, she was [facility] to go to [facility] and since that time, she has been under care of physician at the [facility]. Today, she was brought to the emergency room because of shortness of breath. After she arrived in the emergency room, as ER physician informed me that initially the patient was given BiPAP for acute respiratory failure. She did not respond to it, so subsequently he ended up intubating he r. When I saw her in the ER, her daughter was at bedside. The patient was on ventilator. Allergies: NO KNOWN ALLERGIES. Review of Systems: Respiratory: As mentioned above. All other systems unable to review because the patient is not able to provide any details or answer a ny questions at this point in view of her clinical condition. Past Medical History: Significant for malignant pleural effusion; senile dementia; thyroid nodule; h ypertension; hyperlipidemia; chronic atrial fibrillation; carotid artery stenosis, which is bilateral ; osteoarthritis at multiple sites; anemia; osteoporosis. Past Surgical History: Pacemaker placement, appendectomy, foot surgery. Family History: Not pertinent. Social History: Negative for smoking and alcohol use. Medications: Mirtazapine 15 mg at bedtime, galantamine ER 8 mg p.o. daily, vitamin C 500 mg daily, X arelto 20 mg daily, furosemide 40 mg daily. Physical Examination: Vital Signs: When I saw her this morning, her last vital signs showed temperature 97.3, pulse 76, re spiratory rate 16, blood pressure 85/71, oxygen saturation 100%, this was on ventilator. Height 5 fe et 3 inches, weight 176 pounds. General: The patient is not able to communicate, not able to answer any questions, unresponsive. Be cause she is intubated at this point, she is not able to communicate. Not in any distress. HEENT: Head atraumatic, normocephalic. Conjunctivae nonerythematous. Sclerae white. Mouth examina tion, presence of endotracheal tube. Ears/Nose, no mass, lesion, discharge noted. Neck: Supple. No JVD, lymph nodes, bruit, thyromegaly noted. Lungs: Right hemithorax, clear to auscultation. Left hemithorax, unable to hear breath sounds. Heart: Normal heart sounds, no murmur or gallop. Abdomen: Appears distended with presence of ascites as noted on clinical exam. No guarding, rigidit y, tenderness. Bowel sounds present. Extremities: The patient has grade 2 to grade 3 bilateral pedal edema. Skin: Left posterolateral calf skin has large superficial wound. No discharge. No bleeding. Surro unding skin appears normal. No evidence of any redness or warmness of the surrounding skin. Bilater al feet has significant cyanotic changes involving almost entire plantar aspect of the feet, mainly h eel and all the toes. Both heel skin in small area is slightly showing evidence of skin loss, little more on the left heel than the right heel. Hands are not cyanotic. The patient does have swelling of both hands. Lymphatics: No lymph node enlargement in neck, supraclavicular, infraclavicular region. DECK ENGINE OPERATOR: The patient is unable to follow any commands. Detailed DECK ENGINE OPERATOR exam not possible given current cli nical situation. Chest: Unremarkable. External Genitalia: Deferred. Rectal: Deferred. Laboratory Data: Chest x-ray shows complete opacification of the left hemithorax, unchanged position of the right chest tube, small right pleural effusion present. CAT scan of the chest shows a large amount of ascites, 10 cm fluid collection present in left lateral subcutaneous tissue in the upper ab domen, 16 mm lobulated soft tissue structure within anterior fat of the lower left chest, right chest tube in place, large left pleural effusion, small to moderate right pleural effusion, and large amou nt of ascites. White count 11.1, hemoglobin 9.6, platelets 391. INR 1.34. Initial blood gas showed pH 7.21, pCO2 65, pO2 66.3, saturation 91.1 on 100% FiO2. Last blood gas showed pH 7.45, pCO2 27.4, pO2 68.5, saturation 96% on 30% FiO2. Sodium 131, potassium 5.3, chloride 95, bicarb 24, BUN 77, cr eatinine 1.47, glucose 108. Liver function tests unremarkable. Troponin less than 0.02. Procalcito dheeraj 0.11. Lactic acid 1.8. COVID-19 test negative. Impression: 1.Acute respiratory failure. 2.Acute renal failure. 3.Hyperkalemia. 4.Hyponatremia. 5.Anemia. 6.Malignant pleural effusion. 7.Ascites. 8.Chronic atrial fibrillation. 9.Left leg wound. 10.Rule out sepsis. Plan: Admit the patient to hospital for further evaluation and management of this problem. The carmina ent is appropriate for inpatient and is expected to spend 2 midnights in hospital. The patient has r eceived 3 antibiotics in the ER prior to my arrival. It was vancomycin, cefepime, and ceftriaxone. When I saw her, she was hypotensive and IV fluid was ordered per sepsis protocol and she was still hy potensive after completion of IV fluids, so we started her on vasopressor medication. For her left l eg wound, we will consult general surgeon. Dr. Harris was consulted and details were discussed wit h him. We will consult Dr. Eisenberg from [facility] for respiratory failure and ventilator ma nagement. Her blood glucose was low this morning when I saw her, so IV D50 1 amp was ordered and we will give her IV fluid D5 normal saline at 50 cc/hour. Monitor fingerstick blood sugar. We will sta rt her on Lovenox injection per order and we will give her empiric steroid and empiric antibiotics wi ll be given. Overall, prognosis is poor. I have discussed details with the patient's daughter, who was at bedside. We also discussed advanced care planning and upon further discussion, she informed m e that the patient would not have wanted any CPR, defibrillation, or ventilator support, but since th e patient is already intubated after her arrival to ER and when ER physician contacted me about the p atient, he informed me that he did not have any living will document available, so I have informed th e patient's daughter that at this point, we can continue to keep her on ventilator and see if we can wean her off the ventilator or not and if we are not able to wean her off the ventilator, then eventu ally we may have to go through withdrawal of life support protocol at that particular time. The carmina ent's daughter also informed me that the patient would not have wanted any CPR or defibrillation, so DNR order was written in the chart per my discussion with the patient's daughter and nurse was presen t in the room during this discussion. The patient's daughter does want us to give vasopressor medica tion if it becomes necessary and after that discussion, we did start her on vasopressor after IV flui d bolus was given. Total time spent on advanced care planning was 20 minutes. The patient's overall prognosis is poor and the patient's daughter also informed me that original plan was for the patient to go on hospice care this coming Wednesday using [facility] hospice agency, so depending on how she does in the hospital, we will have to make a decision. If she survives this hospitalization, then upon disch arge, she should return back to nursing facility with hospice care and if her condition deteriorates, then we need to consider in-hospital hospice care, then we will consider that option as well. All t hese details were discussed with daughter this morning. TRINI/SADIA Voice ID: [id number]
[2020-09-28] MEDS ORDERED: METHYLPREDNISOLONE 40 MG INJ ONE ×3 (00:26→21:51)
[2020-09-28] MEDS ORDERED: FENTANYL CITR 100 MCG/2 ML ONE ×2 (03:39→12:05)
[2020-09-28] MEDS: FENTANYL CITR 100 MCG/2 ML IV PRN ×2 (04:15→11:51)
[2020-09-28] MEDS: D5 0.9 NS 1,000 ML IV SCH ×2 (04:47→16:06)
[2020-09-28] MEDS: Levofloxacin 750mg IV 750 MG/150 ML BAG IV SCH (04:47)
[2020-09-28] MEDS ORDERED: Levofloxacin 750mg IV 750 MG/150 ML BAG IV ONE (04:53)
[2020-09-28 05:38] LABS: Absolute Lymphocytes (CBC) 0.5 K/uL (0.7-4.9); Basophils % 0.2 % (0-1.3); Lymphocytes % 3.9 % (15.3-44.8); MPV 8.1 fL (7.6-11.3); RBC Red Blood Cell Count 2.83 M/uL (3.86-4.86)
[2020-09-28 05:56] LABS: Arterial Blood Carboxyhemoglob 1.9 % (0-1.5); Blood Gas Oxyhemoglobin 92.8 % (94-97); Blood O2 Saturation 95.5 % (92-98.5)
[2020-09-28 05:59] LABS: CKMB Creatine Kinase MB 1.1 ng/mL (0.3-3.6); Magnesium 2.5 mg/dL (1.8-2.4); Potassium 4.8 mmol/L (3.5-5.1)
[2020-09-28] MEDS: METHYLPREDNISOLONE 40 MG INJ IV SCH ×3 (06:00→22:23)
[2020-09-28] MEDS: INSULIN -REGULAR HUMAN 50 UNIT/0.5 ML ML SQ SCH ×4 (07:30→20:49)
--- NOTE | 2020-09-28 08:33 | EKG ---
Test Date: 2020-09-26 Test Time: 22:33:02 Shoveler: EVANGELINA MEASUREMENT RESULTS: Intervals: Rate: 128 HI: QRSD: 72 QT: 298 QTc: 435 [place]: P: HI: QRS: 61 T: -84 INTERPRETIVE STATEMENTS: Accelerated Junctional rhythm with premature supraventricular complexes Low voltage QRS Nonspecific T wave abnormality Abnormal ECG Compared to ECG 08/05/2020 05:51:20 Atrial premature complex(es) now present Accelerated junctional rhythm now present Low QRS voltage now present T-wave abnormality now present Atrial fibrillation no longer present Ventricular premature complex(es) no longer present Myocardial infarct finding no longer present Electronically Signed On 09-28-20 08:29:30 PHOTOGRAPHIC SUPERVISOR by Dong Whyte
[2020-09-28] MEDS: FAMOTIDINE 20 MG/2 ML VIAL IV SCH ×2 (08:35→22:22)
[2020-09-28] MEDS: ENOXAPARIN 30 MG/0.3 ML SQ SCH (08:35)
[2020-09-28] MEDS: PIPER/TAZO/NS 2.25gm 2.25 GM/50 ML BAG IVPB SCH ×2 (08:36→16:07)
[2020-09-28] MEDS ORDERED: FAMOTIDINE 20 MG/2 ML VIAL IV ONE ×2 (08:43→21:52)
[2020-09-28] MEDS ORDERED: ENOXAPARIN 30 MG/0.3 ML SQ ONE (08:43)
[2020-09-28] MEDS ORDERED: PIPER/TAZO/NS 2.25gm 2.25 GM/50 ML BAG ONE ×2 (08:43→16:21)
--- NOTE | 2020-09-28 10:40 | P.CNS ---
Date of Consult: 09/27/20 Reason for Consult: Respiratory failure Chief Complaint: Respiratory failure History of Present Illness: Patient is 85 years of age well known to me with possible history off malignant pleural effusion on the right side she does have a PleurX catheter apparently she just became worse suddenly developed respiratory distress lower extremity mottling and edema came here to the emergency room patient was intubated the massive left-sided pleural effusion subsequently made a DNR Allergies No Known Allergies Allergy (Verified 07/07/19 11:58) Home Medications: Mirtazapine [Remeron*] 15 mg PO BEDTIME 07/07/19 Rivaroxaban [Xarelto] 20 mg PO DAILY 08/05/20 Ascorbic Acid 500 mg PO DAILY 09/27/20 Furosemide [Lasix] 40 mg PO DAILY 09/27/20 Galantamine HBr [Galantamine ER] 8 mg PO DAILY 09/27/20 Zinc 50 mg PO DAILY 09/27/20 - Past Medical/Surgical History Diabetic: No -: hypertension -: high cholesterol -: pacemaker -: Possible right-sided malignant pleural effusion status post PleurX catheter -: Etiology of cancer unknown -: cataract 2017 -: appendectomy -: shoulder repair - Social History Alcohol use: Yes CD- Drugs: No Caffeine use: Yes Place of Residence: [facility] Review of Systems is unable to be obtained Physical Examination Temp Pulse Resp BP Pulse Ox 97 F 79 14 111/70 100 09/28/20 07:30 09/28/20 09:00 09/28/20 09:00 09/28/20 09:00 09/28/20 09:00 General: Unresponsive Respiratory: Clear to auscultation bilaterally, Diminished Cardiovascular: Normal S1 S2, Edema (Significant lower extremity edema 3+ with mottling) Gastrointestinal: Distended (Abdomen is distended) - Problems (1) Respiratory failure Current Visit: Yes Status: Acute Plan: Patient is 85 years of age admitted with respiratory failure he now has pleural effusion on the left side occupying the left eliot thorax in addition patient is a PleurX catheter on the right side hemodynamically stable significant ascites prognosis very poor recommend comfort care extubation withdrawal of care chronic renal failure Qualifiers: Chronicity: acute
--- NOTE | 2020-09-28 10:42 | P.PN ---
Subjective Date of Service: 09/28/20 Chief Complaint: Respiratory failure Subjective: Improving (Patient is improving very alert responsive cooperative on a ventilator) Review of Systems is unable to be obtained Physical Examination - Vital Signs Temperature: 97 F Blood Pressure: 111/70 Pulse: 79 Respirations: 14 Pulse Ox (%): 100 - Physical Exam General: Alert, Cooperative Respiratory: Diminished (Diminished air entry on the left side) Cardiovascular: Regular rate/rhythm, Edema (Still has lower extremity edema is not as cyanotic compared to yesterday) Gastrointestinal: Distended (Abdomen distended) - Studies Microbiology Data (last 24 hrs): 09/26/20 22:53 Blood - Blood Anaerobic Blood Culture - Final Assessment & Plan - Problems (Diagnosis) (1) Respiratory failure Current Visit: Yes Status: Acute Plan: Patient has respiratory failure prior history of malignant right-sided pleural effusion status post PleurX catheter on the right side now she has the current left-sided pleural effusion and significant ascites options include temporary thoracentesis or chest tube a possibly a PleurX catheter However in view of her current situation recommend withdrawal and hospice care diagnosis is very poor she has been declining in addition patient also has chronic renal failure currently hemodynamically stable reduce dose of Solu- Medrol Qualifiers: Chronicity: acute
--- NOTE | 2020-09-28 11:23 | RAD REPORT ---
EXAM DESCRIPTION: RAD - Chest Single View - 09/28/2020 4:56 am CLINICAL HISTORY: intubated Chest pain. COMPARISON: Chest Single View dated 09/27/2020; Chest Single View dated 09/27/2020; Chest Single View dated 09/27/2020; Chest Single View dated 09/26/2020 FINDINGS: Portable technique limits examination quality. Right-sided chest tube is in place. There is a small right-sided pneumothorax suspected estimated at 5% of lung volume along the right apex. Left hemithorax appears completely opacified. Endotracheal tu be tip is at the level of the aortic arch. Enteric tube descends into the upper abdomen.Single lead p acer device is in place. Left-sided central line has tip in the SVC.
[2020-09-28] MEDS ORDERED: D5 0.9 NS 1,000 ML IV ONE (16:22)
[2020-09-28] MEDS: NOREPINEPHRINE 4 MG in D5W 250 ML IV PRN (18:44)
--- NOTE | 2020-09-28 18:46 | PN ---
Date of Progress Note: 09/28/2020 Subjective: The patient was seen this morning for followup. She was on ventilator, lying in bed, no t in distress, had her eyes close. When I started talking to her, she opened her eyes, responded alissa y well, much better than yesterday, follows simple commands. I explained it to her what is going on. Her daughter was not with her at bedside today, but I did call her later on and talked to her on phone. Vital signs reviewed. The patient remains on IV fluid and IV Levophed drip. Overall, her condition overnight has remained stable. Objective: Vital Signs: Reviewed. HEENT: Unremarkable. Lungs: Right side, clear to auscultation. Left side, unable to hear any breath sounds because of la rge pleural effusion in the left lung. Heart: Sounds normal. Abdomen: Soft. Bowel sounds normal. No guarding, rigidity, tenderness, or distention. Presence of ascites unchanged from yesterday. Extremities: Bilateral leg edema remains unchanged. Skin: The patient had significant cyanosis yesterday involving both feet that has completely resolve d and today, there is no evidence of any cyanosis at all. Both heels shows very small area of bruisi ng type of appearance of her skin on the both heels. There is no open wound. Laboratory Data: White count 12.6, hemoglobin 8.1, platelets 329. Sodium 133, potassium 4.8, chlori de 97, bicarb 24, BUN 66, creatinine 1.72, glucose 129. Blood culture remains negative. Chest x-ray from today shows right-sided chest tube present, small right pneumothorax suspected at 5% in the rig ht apex, left hemithorax appears completely opacified. Impression: 1.Acute respiratory failure with hypercapnia and hypoxia. 2.Acute renal failure. 3.Malignant pleural effusion. 4.Anemia. Plan: We will go ahead and continue current medication. Continue current empiric antibiotic, which is Zosyn. The patient is on Lovenox 30 mg subcutaneous injection daily. We will continue that. Con tinue current vasopressor medication and IV fluid. I did talk to the patient's daughter, discussed a ll the details with her and also explained to her about the large pleural effusion on the left side a nd to see whether she would want us to proceed with chest tube placement like PleurX catheter in the left chest cavity just like the way she has one in the right side. She has informed me that she woul d like for us to go ahead and proceed with that plan and after the placement of this chest tube, hope fully, we can extubate her and then plan to discharge her to go back to care home with hospice car e and the patient's daughter agrees with that plan. Details were discussed with Dr. Eisenberg. We wi ll continue to follow with Dr. Eisenberg for respiratory failure as well as this right-sided pneumotho rax, which is small at this point and unless it gets larger, will not require any further interventio n at this point. TRINI/MODL Voice ID: [id number] Report ID: [id number]
[2020-09-28] MEDS ORDERED: NOREPINEPHRINE 4mg/D5W 250mL 4 MG/250 ML BAG IV ONE (18:55)
[2020-09-29] MEDS ORDERED: PIPER/TAZO/NS 2.25gm 2.25 GM/50 ML BAG ONE ×3 (00:20→16:43)
[2020-09-29] MEDS: PIPER/TAZO/NS 2.25gm 2.25 GM/50 ML BAG IVPB SCH ×3 (00:36→16:36)
[2020-09-29] MEDS: D5 0.9 NS 1,000 ML IV SCH ×2 (01:00→21:00)
[2020-09-29] MEDS: FENTANYL CITR 100 MCG/2 ML IV PRN ×2 (05:14→17:09)
[2020-09-29] MEDS ORDERED: FENTANYL CITR 100 MCG/2 ML ONE ×2 (05:29→17:23)
[2020-09-29 05:34] LABS: Arterial Blood Carboxyhemoglob 1.8 % (0-1.5); Blood Gas Oxyhemoglobin 86.7 % (94-97); Blood O2 Saturation 89.4 % (92-98.5)
[2020-09-29 06:11] LABS: CKMB Creatine Kinase MB < 1.0 ng/mL (0.3-3.6); Creatine Phosphokinase 39 U/L (26-192)
[2020-09-29] MEDS: INSULIN -REGULAR HUMAN 50 UNIT/0.5 ML ML SQ SCH ×3 (07:30→16:30)
[2020-09-29] MEDS: ENOXAPARIN 30 MG/0.3 ML SQ SCH (08:43)
[2020-09-29] MEDS: FAMOTIDINE 20 MG/2 ML VIAL IV SCH ×2 (08:44→21:18)
[2020-09-29] MEDS: METHYLPREDNISOLONE 40 MG INJ IV SCH ×2 (08:44→21:18)
[2020-09-29] MEDS ORDERED: ENOXAPARIN 30 MG/0.3 ML SQ ONE (08:47)
[2020-09-29] MEDS ORDERED: METHYLPREDNISOLONE 40 MG INJ ONE ×2 (08:47→21:33)
[2020-09-29] MEDS ORDERED: FAMOTIDINE 20 MG/2 ML VIAL IV ONE ×2 (08:48→21:34)
[2020-09-29 10:36] LABS: Absolute Lymphocytes (CBC) 0.6 K/uL (0.7-4.9); Basophils % 0.2 % (0-1.3); Hematocrit 27.8 % (36.0-45.0); Lymphocytes % 4.5 % (15.3-44.8); MPV 7.7 fL (7.6-11.3); RBC Red Blood Cell Count 3.27 M/uL (3.86-4.86)
[2020-09-29 10:56] LABS: Magnesium 2.5 mg/dL (1.8-2.4); Potassium 4.6 mmol/L (3.5-5.1)
--- NOTE | 2020-09-29 16:22 | RAD REPORT ---
EXAM DESCRIPTION: RAD - Chest Single View - 09/29/2020 3:30 pm CLINICAL HISTORY: ?pneumothorax, chest tube, shortness of breath COMPARISON: Portable January 28 TECHNIQUE: AP portable chest image was obtained 09/29/2020 3:30 pmin expiration . FINDINGS: Lung volumes are low due to expiration technique. Right-sided chest tube has not changed p ositioning. No right-sided pneumothorax identifiable. Single lead pacemaker in place. Left-sided subclavian venous access catheter in place unchanged in po sitioning. Endotracheal tube tip is top of the aortic arch. NG tube extends below the diaphragm. Complete opacification of the left hemithorax remains. Heart is obscured by rotation and left hemitho rax opacification. No new or enlarging right pleural fluid collection. IMPRESSION: Portable expiration film showing no pneumothorax. No change in positioning of the right-sided chest tube. Complete left hemithorax opacification has not changed. Endotracheal tube remains in good position.
[2020-09-29] MEDS: SILVER SULFADIAZINE 1% 50 GM TOP SCH ×2 (16:34→21:00)
--- NOTE | 2020-09-29 17:56 | PN ---
Date of Progress Note: 09/29/2020 Subjective: The patient was seen this morning for followup. No new complaints or problems reported by nursing staff. The patient remains on ventilator. Objective: Vital signs: Reviewed. HEENT: Unremarkable. Lungs: Clear to auscultation on the right side, left hemithorax. No air entry heard because of larg e left-sided pleural effusion and this lung exam is unchanged from yesterday. Heart: Sounds normal. Abdomen: Soft. Bowel sounds normal. No guarding, rigidity, tenderness, distention, other please ma ke correction on abdomen exam abdomen Soft. Bowel sounds normal. No guarding, rigidity, tenderness. Abdomen is slightly distended as yes terday and presence of ascites same as yesterday. Bowel sounds normal active. Extremities: Bilateral edema. Skin: No evidence of cyanosis and heel examination remains unchanged from yesterday. Laboratory Data: White count 13, hemoglobin 9.1, platelets 330, sodium 135, potassium 4.6, chloride 99, bicarb 27, BUN 70, creatinine 2.11, glucose 118. Impression: 1.Acute respiratory failure. 2.Acute renal failure. 3.Malignant pleural effusion. Plan: We will go ahead and start her on tube feeding. The patient had oral gastric tube and we will utilize that her tube feeding, use Jevity, and order was written for that once tube feeding be start ed. We will discontinue IV fluid. Continue current Lovenox and continue to follow with Dr. Eisenberg and hopefully tomorrow Dr. Correia will have chance to place a PleurX catheter in the left chest and after that Dr. Eisenberg will probably plan to extubate her. Plan is to discharge her with hospice and she will [facility] dependin g on family's decision. TRINI/MODL Voice ID: [id number] Report ID: [id number]
[2020-09-29 18:10] LABS: Arterial Blood Carboxyhemoglob 1.4 % (0-1.5); Blood Gas Oxyhemoglobin 95.8 % (94-97)
[2020-09-29] MEDS: LORazepam 2 MG/ML VIAL IV PRN (18:26)
[2020-09-29] MEDS ORDERED: LORazepam 2 MG/ML VIAL ONE (18:42)
[2020-09-30] MEDS: PIPER/TAZO/NS 2.25gm 2.25 GM/50 ML BAG IVPB SCH ×3 (00:17→18:27)
[2020-09-30] MEDS ORDERED: PIPER/TAZO/NS 2.25gm 2.25 GM/50 ML BAG ONE ×3 (00:32→17:56)
[2020-09-30] MEDS ORDERED: NA CHLORIDE 0.9% 0 ML ONE (00:32)
[2020-09-30] MEDS: FENTANYL CITR 100 MCG/2 ML IV PRN ×3 (01:50→19:30)
[2020-09-30] MEDS ORDERED: FENTANYL CITR 100 MCG/2 ML ONE ×3 (02:06→19:37)
[2020-09-30] MEDS: LORazepam 2 MG/ML VIAL IV PRN ×3 (02:20→19:30)
[2020-09-30] MEDS ORDERED: LORazepam 2 MG/ML VIAL ONE ×3 (02:37→19:36)
[2020-09-30 05:55] VITALS: BMI 35.6
[2020-09-30] MEDS: INSULIN -REGULAR HUMAN 50 UNIT/0.5 ML ML SQ SCH ×4 (06:00→18:00)
[2020-09-30 06:35] LABS: Absolute Lymphocytes (CBC) 0.3 K/uL (0.7-4.9); Basophils % 0.2 % (0-1.3); Hematocrit 26.6 % (36.0-45.0); Lymphocytes % 2.6 % (15.3-44.8); MPV 8.1 fL (7.6-11.3); RBC Red Blood Cell Count 3.14 M/uL (3.86-4.86)
[2020-09-30 06:38] LABS: Protime INR 1.26
[2020-09-30 06:51] LABS: BUN Blood Urea Nitrogen 75 mg/dL (7-18); Bicarbonate 26 mmol/L (21-32); CKMB Creatine Kinase MB < 1.0 ng/mL (0.3-3.6); Creatine Phosphokinase 23 U/L (26-192); Glucose Level 117 mg/dL (74-106); Magnesium 2.6 mg/dL (1.8-2.4); Potassium 4.8 mmol/L (3.5-5.1); Sodium Level 133 mmol/L (136-145)
[2020-09-30 07:49] LABS: Blood Morphology Comment NOT SEEN (NOT SEEN); Platelet Estimate ADEQ; White Blood Cell Scan OK (OK)
[2020-09-30] MEDS ORDERED: D5W 0 ML IV ONE (07:51)
[2020-09-30] MEDS ORDERED: D5 0.9 NS 1,000 ML IV ONE (07:53)
[2020-09-30] MEDS: D5 0.9 NS 1,000 ML IV SCH ×2 (07:57→17:00)
[2020-09-30] MEDS ORDERED: METHYLPREDNISOLONE 40 MG INJ ONE ×2 (08:48→20:30)
[2020-09-30] MEDS ORDERED: ENOXAPARIN 30 MG/0.3 ML SQ ONE (08:48)
[2020-09-30] MEDS ORDERED: FAMOTIDINE 20 MG/2 ML VIAL IV ONE ×2 (08:48→20:30)
--- NOTE | 2020-09-30 09:11 | P.OP ---
Preoperative diagnosis: LEFT Pleural Effusion Postoperative diagnosis: LEFT Pleural Effusion Primary procedure: Placemement of LEFT pleur-X thoracic catheter Anesthesia: Local Estimated blood loss: <1cc Specimen: pleural fluid Findings: straw colored non-bloody pleural fluid Complications: None Transferred to: ICU Condition: Serious
[2020-09-30] MEDS: METHYLPREDNISOLONE 40 MG INJ IV SCH ×2 (09:44→20:42)
[2020-09-30] MEDS: FAMOTIDINE 20 MG/2 ML VIAL IV SCH ×2 (09:44→20:42)
[2020-09-30] MEDS: ENOXAPARIN 30 MG/0.3 ML SQ SCH (09:44)
--- NOTE | 2020-09-30 11:11 | RAD REPORT ---
EXAM DESCRIPTION: RAD - Chest Single View - 09/30/2020 10:58 am CLINICAL HISTORY: r/o pneumothorax left lung, pleurX cath insertion COMPARISON: September 29 TECHNIQUE: AP portable chest image was obtained 09/30/2020 10:58 am . FINDINGS: Endotracheal tube tip is mid to lower aortic arch similar to comparison. This is [address] above the kelly. Low lung volumes noted. No new or enlarging pneumothorax. Anterior pneumothorax can be occult on port able imaging. No change in positioning of the chest tube. NG/OG tube extends below the diaphragm, off the field of view. No new or progressive lung parenchymal process. Patient could still have a small right pleural effusi on. The costophrenic angle is blunted. Heart and vasculature are normal. No acute bony abnormality seen. No acute aortic findings suspected . IMPRESSION: No pneumothorax identifiable. Chest tube remains in place. Endotracheal tube tip is in the mid to distal aortic arch similar to comparison. This is 1 centimeter above the kelly. Minimal right pleural effusion is still suspected.
--- NOTE | 2020-09-30 12:53 | CON ---
Date of Consultation: 09/30/2020 Brief Hpi: The patient is an 85-year-old female, known to me with a history of malignant pleural eff usion on the right side with a PleurX catheter, which I placed which was functioning well. However, patient came to the hospital with worsening respiratory function. Workup revealed that she ultimatel y had a large left pleural effusion with complete opacification of left hemothorax, as such I was con sulted for placement of a PleurX catheter on the left side. Past Medical History: Significant for hypertension, high cholesterol, pacemaker, right-sided maligna nt effusion, status post PleurX catheter placement, cataract, appendectomy, shoulder surgery. She oakes s a history of alcohol use. She lives in a halfway. She denies recreational drug use. Home Medications: Include Remeron, Xarelto, vitamin C, Lasix, zinc, galantamine. Review of Systems: 10-point review of systems unable to obtain as the patient is currently intubated. Allergies: NO KNOWN DRUG ALLERGIES. Physical Examination: Vital Signs: At the time of my examination her BMI is 35.6. Her blood pressure 112/97, heart rate w as 125, respiratory rate 35 on the ventilator, temperature 97.6. Her SpO2 is 96% on high-flow oxygen via ventilator at 50%. HEENT: She is otherwise normocephalic. Her sclerae were anicteric. Mucous membranes are moist. Sh e has oropharyngeal airway in place, ET tube in place, OG tube in place. Neck: Supple without JVD. Chest: Normal expansion and excursion. Cardiovascular: Tachycardic otherwise regular. Pulmonary: Absent breath sounds on the left and decreased breath sounds on the right. Abdomen: Dis tended, soft. She has general anasarca. Laboratory Data: Which revealed a white blood count 12.2, hemoglobin 9.9, hematocrit 26.6, platelet count was 284. Her coags showed a PT 14, INR is 1.26. Chemistry is 133, potassium 4.8, chloride 199 , carbon dioxide 26, BUN 75, creatinine 2.3, glucose is 177. Procalcitonin 0.07. She had imaging pe rformed on 09/29, which was officially read as, no change in position of right-sided chest tube, comp lete left hemithorax opacification unchanged. Endotracheal tube is in good position. Assessment And Plan: This is an 85-year-old woman who comes in with a left pleural effusion/complete opacification of left hemothorax. 1.Continue medical management. 2.I explained risks, benefits and alternatives of placement of a PleurX catheter on the left chest w all. The patient's family agrees to proceed as indicated. Thank you for this interesting consult. MIKEL/SADIA Voice ID: [id number] Report ID: [id number]
--- NOTE | 2020-09-30 14:26 | OP ---
Date of Procedure: 09/30/2020 Surgeon: Neal Correia MD, Brief History Of Present Illness: The patient is an 85-year-old female, known to me from previous pl acement of a right PleurX catheter for malignant pleural effusion, who presents now with a large left effusion with complete opacification of the left hemithorax. I was consulted for placement of addit ional left PleurX thoracic catheter. Preoperative Diagnosis: Left pleural effusion. Postoperative Diagnosis: Left pleural effusion. Procedure Performed: Placement of a left PleurX thoracic catheter. Anesthesia: Local with 1% lidocaine. Estimated Blood Loss: Less than 1 mL. Specimen: Pleural fluid sent for analysis. Findings: Straw-colored, not bloody pleural fluid sent for analysis. Complications: None. Disposition: Transferred to ICU in serious condition. Procedure In Detail: The patient was prepped and draped in the usual sterile fashion after adequate anesthesia was achieved with 1% lidocaine in the left fourth and fifth intercostal space on the left anterior midaxillary line. I anesthetized the skin and the entire tract using 1% lidocaine as descri bed above. I made a small finder needle tract into the thoracic cavity and straw-colored fluid was i mmediately presented. I then used the microintroducer needle into the same set tract and got straw-c olored fluid, leaving the sheath in place. I removed the needle at this point and placed the wire in to the thoracic space at this point and removed the introducer sheath. At this point, I made a count er incision over the insertion site and in a tract inferior-posterior from the insertion site using a n 11 blade. I then used the tunneling device to bring the catheter through this tract and using sequ ential dilatation Seldinger method, I sequentially dilated the insertion site using the introducer bowen griffiths over the wire as described. The introducer sheath was introduced at this point and the wire ou t was called. I then introduced the catheter into this tract and aligned it well and ultimately with sanjeev straw-colored fluid from the catheter easily without evidence of complication. I then irrigated the areas and closed the introduction site with an interrupted nylon suture with 2-0 type and secure d the catheter with the same set of 2-0 nylon suture on the chest wall and sterile dressing was place d over top. The patient was hooked up to a Pneumovax system and approximately 1 L of straw-colored f luid was returned and some was sent for analysis at this point. The patient tolerated the procedure well without evidence of complication and remained in the ICU in serious condition. All counts were correct at the end of the case. Stat chest x-ray will be performed. MIKEL/SADIA Voice ID: [id number] Report ID: [id number]
[2020-09-30 15:27] LABS: Body Fluid Source PLEURAL; Color of fluid Yellow (COLORLESS)
[2020-09-30 15:28] LABS: Appearance CLEAR (CLEAR); Body Fluid WBC 40 /mm^3
--- NOTE | 2020-09-30 17:27 | P.PN ---
Subjective Date of Service: 09/30/20 Chief Complaint: Respiratory failure Subjective: Improving (Patient is status post chest tube improving chest x-rays now clear) Review of Systems is unable to be obtained Physical Examination - Vital Signs Temperature: 98.3 F Blood Pressure: 108/59 Pulse: 89 Respirations: 16 Pulse Ox (%): 100 - Physical Exam General: Unresponsive Respiratory: Clear to auscultation bilaterally Cardiovascular: Normal S1 S2, Edema, Irregular heart rate/rhythm Assessment & Plan - Problems (Diagnosis) (1) Respiratory failure Current Visit: Yes Status: Acute Plan: Patient admitted with respiratory failure secondary to massive pleural effusion this post PleurX catheter on the left side chest x-rays no clear no evidence of infection in the pleural fluid will plan to wean and extubate vital signs stable blood cultures negative can Dc antibiotics and steroids Qualifiers: Chronicity: acute
[2020-10-01] MEDS: PIPER/TAZO/NS 2.25gm 2.25 GM/50 ML BAG IVPB SCH ×3 (00:45→17:00)
[2020-10-01] MEDS ORDERED: PIPER/TAZO/NS 2.25gm 2.25 GM/50 ML BAG ONE ×2 (01:01→08:14)
[2020-10-01] MEDS: FENTANYL CITR 100 MCG/2 ML IV PRN ×2 (04:15→10:44)
[2020-10-01] MEDS ORDERED: FENTANYL CITR 100 MCG/2 ML ONE ×2 (04:29→10:41)
[2020-10-01] MEDS: INSULIN -REGULAR HUMAN 50 UNIT/0.5 ML ML SQ SCH ×3 (06:00→12:00)
--- NOTE | 2020-10-01 07:25 | PN ---
Date of Progress Note: 09/30/2020 Subjective: The patient was seen for followup. She was on ventilator in ICU. No new complaints or problems reported. She wakes up when I examine her and try to talk to her, not in any distress. Her NG tube feeding was discontinued at midnight in order for her to have her procedure done today, whic h will be PleurX catheter placement by Dr. Correia. Objective: Vital Signs: Reviewed. HEENT: Unremarkable. Lungs: Right-side clear to auscultation. Left side no air entry, unchanged from before. Heart: Sounds normal. Abdomen: Soft. Presence of ascites, unchanged. No guarding, rigidity, tenderness. Bowel sounds no rmal. Extremities: Edema remains unchanged. Laboratory Data: Blood culture gram-positive rods. Sodium 133, potassium 3.8, chloride 99, bicarb 2 6, BUN 75, creatinine 2.33, glucose 117. White count 12.2, hemoglobin 8.9, platelets 284. Impression: 1.Acute respiratory failure with hypercapnia and hypoxia. 2.Acute renal failure. 3.Malignant pleural effusion. 4.Atrial fibrillation. Plan: We will go ahead and continue current medication. The patient remains on very low-dose vasopr essor medication. Continue to follow with Dr. Eisenberg. We will try to extubate her if possible aft er her PleurX catheter placement, which will be done later today. I will see her tomorrow for followup. IV fluid was ordered. D5 normal saline at 50 cc/hour while patient is n. p.o. for this procedure. TRINI/MODL Voice ID: [id number] Report ID: [id number]
[2020-10-01 07:45] LABS: Absolute Lymphocytes (CBC) 0.4 K/uL (0.7-4.9); Basophils % 0.1 % (0-1.3); Hematocrit 28.1 % (36.0-45.0); MPV 8.4 fL (7.6-11.3); RBC Red Blood Cell Count 3.25 M/uL (3.86-4.86)
[2020-10-01 07:54] LABS: Magnesium 2.5 mg/dL (1.8-2.4); Potassium 4.6 mmol/L (3.5-5.1)
[2020-10-01] MEDS: FAMOTIDINE 20 MG/2 ML VIAL IV SCH ×2 (08:00→22:05)
[2020-10-01] MEDS: ENOXAPARIN 30 MG/0.3 ML SQ SCH (08:00)
[2020-10-01] MEDS: METHYLPREDNISOLONE 40 MG INJ IV SCH (08:01)
[2020-10-01] MEDS ORDERED: FAMOTIDINE 20 MG/2 ML VIAL IV ONE (08:14)
[2020-10-01] MEDS ORDERED: ENOXAPARIN 30 MG/0.3 ML SQ ONE (08:14)
[2020-10-01] MEDS ORDERED: METHYLPREDNISOLONE 40 MG INJ ONE (08:14)
[2020-10-01] MEDS: SILVER SULFADIAZINE 1% 50 GM TOP SCH (09:00)
--- NOTE | 2020-10-01 11:19 | PN ---
Date of Progress Note: 10/01/2020 Diagnoses: Metastatic cancer, bilateral lower extremities open wounds. Subjective: Mrs. Flores is an 85-year-old female, unfortunately with medical history. She is devel oping some weakness including ulcers in bilateral lower extremities. Today, I just had discussion wi th the family. They are planning to withdraw treatment at this moment and they see how her condition is not improving and they understood her condition. I offered my services from us. In t he meantime, we are going to continue the offloading and also we should continue the wound care until she is no longer with us. They are very pleased with the service. They understand how her conditio n just basically took the best out of her, but they understand also that she is going to b e in a better place. In the meantime, we are going to continue wound care. Thank you for the consult. VIDA Voice ID: [id number] Report ID: [id number]
[2020-10-01] MEDS ORDERED: LORazepam 2 MG/ML VIAL IV PRN (11:32)
[2020-10-01] MEDS ORDERED: MORPHINE 4 MG/ML SYR IV PRN (11:33)
[2020-10-01] MEDS ORDERED: LORazepam 2 MG/ML VIAL ONE (12:20)
--- NOTE | 2020-10-01 12:28 | P.PN ---
Date of Service: 10/01/20 Patient is 85 years of age status post left-sided PleurX catheter and continues to deteriorate able to wean off the ventilator she is currently in shock on vasopressors although her chest x-rays clear she has gross anasarca generalize unresponsive On examination patient is in shock unresponsive clear chest significant edema and abdomen lower extremity discussed with the daughter present at the bedside recommend withdrawal of care comfort measures patient's renal function is worse labs reviewed
[2020-10-01] MEDS: LORazepam 2 MG/ML VIAL IV PRN ×2 (15:02→22:05)
--- NOTE | 2020-10-01 17:17 | P.PN ---
Subjective Date of Service: 10/01/20 Chief Complaint: Respiratory failure Patient family has opted to remove ventilator and give supportive care only @ this time Physical Examination - Vital Signs Temperature: 97 F Blood Pressure: 95/64 Pulse: 105 Respirations: 28 Pulse Ox (%): 98 - Physical Exam General: Mild distress Respiratory: Other (Bilateral pleur-X catheters in place, LEFT functioning well, Right capped) Assessment And Plan - Plan - will sign off for now, call with any future needs
[2020-10-01] MEDS: MORPHINE 2 MG/ML SYR IV PRN (22:17)
[2020-10-02] MEDS: MORPHINE 2 MG/ML SYR IV PRN ×3 (05:02→11:27)
--- NOTE | 2020-10-02 06:26 | PN ---
Date of Progress Note: 10/01/2020 Subjective: Patient was seen this morning for followup. She was on ventilator when I saw her this m orning Objective: Vital Signs: Reviewed. HEENT: Unremarkable. Telemetry present. No rales. The patient had a PleurX catheter placed yester day in the left chest cavity by Dr. Correia. Initially approximately 2 L of fluid was removed soon a fter the chest tube placement and overnight she had approximately 200 cc of fluid output from this ca theter. Cardiac: Heart sounds normal. Abdomen: Soft, bowel sounds normal. No guarding, rigidity, tenderness. Presence of ascites unchang ed. Extremities: Leg edema unchanged. Laboratory Data: White count 12.2, hemoglobin 9.1, platelets 284. Sodium 136, potassium 4.6, chlori de 101, bicarb 24, BUN 79, creatinine 2.65, glucose 115. Impression: 1.Acute respiratory failure with hypoxia and hypercapnia. 2.Acute renal failure. 3.Anemia. 4.Malignant pleural effusion. 5.Ascites. Plan: After I saw the patient this morning, Dr. Eisenberg communicated with the patient's daughter an d daughter requested withdrawal of life support and after appropriate form was signed. The patient w as extubated. Her overall prognosis is very poor and daughter is thinking about whether to pursue [facility] hospice care in the hospital or take her home and provide hospice care. She will make this decision, hopefully by tomorrow depending on what happens now overnight. TRINI/MODL Voice ID: [id number] Report ID: [id number]
[2020-10-02] MEDS: SILVER SULFADIAZINE 1% 50 GM TOP SCH (09:00)
[2020-10-02] MEDS: FAMOTIDINE 20 MG/2 ML VIAL IV SCH (09:00)
[2020-10-02 09:06] VITALS: BP 75/53; TEMP 96.9; O2SAT 93
[2020-10-02] MEDS: LORazepam 2 MG/ML VIAL IV PRN (11:27)
--- NOTE | 2020-10-03 08:51 | DS ---
Date of Discharge: 10/02/2020 Disposition: The patient was discharged from inpatient hospital stay to inpatient hospice care today. Physical Examination: General: This morning when I saw her she was lying in bed, not in any distress, breathing from her mouth and her breathing was shallow, sleeping, not arousable, and her daughter was at bedside with her . Vital Signs: Reviewed. HEENT: Otherwise unremarkable. Lungs: Bilateral equal air entry in both lung ricketts. Heart: Sounds normal. Abdomen: Soft, distended with ascites. No guarding, rigidity, tenderness. Bowel sounds present. Extremities: Leg edema unchanged. Laboratory Data: No new labs this morning. Initial lab on 09/27/2020; white count 11.1, hemoglobin 9.6, platelets 391. Last CBC yesterday; white count 12.2, hemoglobin 9.1, platelets 284. Last chemistry yesterday; sodium 136, potassium 4.6, chloride 101, bicarb 24, BUN 79, creatinine 2.65, glucose 159. Hospital Course: This is an 85-year-old female patient, who [facility] and was admitted to the hospital with shortness of breath. Please see dictated H and P for more information. The patient came into emergency, her chest x-ray and CAT scan of the chest showed a large pleural effusion on the left side, showing complete white out of left hemithorax due to this pleural effusion. When the patient first came in her both feet were extremely cyanotic. Her blood pressure was low, she was given IV fluid per sepsis protocol and she still continued to have low blood pressure, so she started on vasopressor, Levophed and with a very low dose we were able to maintain adequate blood pressure for her. When patient first came into ER, she was in respiratory failure, which did not improve on BiPAP and she was treated by ER physician prior to notifying me. When I evaluated her, I also talked to her daughter who was at bedside, who informed me that the patient has a Living Will of do not resuscitate, so DNR order was written, but the patient was already on ventilator at that time, so we discussed about advanced care planning and she did not want us to pursue any CPR or defibrillation in the event of any cardiac arrest. Dr. Eisenberg was consulted from Pulmonary and Dr. Harris was consulted from General Surgery for left leg wound. Her cyanosis from both feet resolved by next day morning when I saw her. Dr. Correia was consulted from General Surgery for PleurX catheter placement in the left chest cavity because patient's daughter did want us to provide that intervention to assist with her breathing, so procedure was done on Wednesday. Approximately, 2 L of pleural fluid was removed soon after the catheter was placed. Yesterday, Dr. Eisenberg communicated with the patient's daughter and daughter requested withdrawal of life support, so the patient was extubated yesterday. She is no longer on any vasopressor medication. She was transferred to regular room from ICU yesterday and her condition is expected to deteriorate very rapidly and this morning when I talked to the patient's daughter, I recommended in-hospital hospice care and daughter is agreeable for that. Social Service was consulted and once arrangements completed today, the patient was discharged from acute care to hospice care. Her pleural fluid cytology came back positive for malignant cells. Final Diagnoses: 1. Acute respiratory failure with hypercapnia and hypoxia. 2. Acute renal failure. 3. Malignant pleural effusion. 4. Hyperkalemia. 5. Hyponatremia. 6. Anemia. 7. Ascites. 8. Chronic atrial fibrillation. 9. Left leg wound. TRINI/MODL Voice ID: [id number] Report ID: [id number] MTDD
== END 2020-10-02 12:58 | disposition hospice, inpatient (51) | DRG 207 ==
LOC: ER 22:00 → ERHOLD 09-27 05:20 → 2ND 10-01 20:00
PROVIDERS: ADMIT Internal Medicine; ATTEND Internal Medicine
PROC: 5A1955Z Respiratory Ventilation, Greater than 96 Consecutive Hours (ICD-10-PCS; principal; 2020-09-27)
PROC: 0BH17EZ Insertion of Endotracheal Airway into Trachea, Via Natural or Artificial Opening (ICD-10-PCS; 2020-09-27)
PROC: 5A09357 Assistance with Respiratory Ventilation, Less than 24 Consecutive Hours, Continuous Positive Airway Pressure (ICD-10-PCS; 2020-09-27)
PROC: 0W993ZZ Drainage of Right Pleural Cavity, Percutaneous Approach (ICD-10-PCS; 2020-09-27)
PROC: 02HV33Z Insertion of Infusion Device into Superior Vena Cava, Percutaneous Approach (ICD-10-PCS; 2020-09-27)
PROC: 0W9B3ZZ Drainage of Left Pleural Cavity, Percutaneous Approach (ICD-10-PCS; 2020-09-30)
DX: J96.01 Acute respiratory failure with hypoxia (principal); N17.9 Acute kidney failure, unspecified; E87.1 Hypo-osmolality and hyponatremia; I48.20 Chronic atrial fibrillation, unspecified; R18.8 Other ascites; J91.0 Malignant pleural effusion; J93.9 Pneumothorax, unspecified; C38.4 Malignant neoplasm of pleura; J96.02 Acute respiratory failure with hypercapnia; E87.5 Hyperkalemia; I10 Essential (primary) hypertension; D64.9 Anemia, unspecified; E78.5 Hyperlipidemia, unspecified; M19.90 Unspecified osteoarthritis, unspecified site; Z66 Do not resuscitate; Z95.0 Presence of cardiac pacemaker; Z90.49 Acquired absence of other specified parts of digestive tract; Z79.01 Long term (current) use of anticoagulants; Z79.899 Other long term (current) drug therapy; Z20.822 Contact with and (suspected) exposure to COVID-19; Z78.1 Physical restraint status
CPT/HCPCS: 31500; 36415; 51702; 71045; 71250; 80048; 80061; 80076; 82150; 82550; 82553; 82805; 82945; 82947; 83605; 83615; 83690; 83735; 84145; 84157; 84484; 85025; 85610; 85730; 87015; 87040; 87070; 87116; 87205; 87206; 88108; 88305; 89050; 93005; 94002; 94003; 94660; 99291; 99292; J0330; J0692; J0696; J1650; J1940; J2270; J2920; J2930; J3010; J3370; J7030; J7040; J7042; J7050; J7060; J7799; P9047; U0003

== ENCOUNTER 2020-10-02 13:05 | Inpatient (IN) | payer OTHER ==
[2020-10-02] MEDS ORDERED: SCOPOLAMINE HYDROBROMIDE PATCH TD SCH (14:00)
[2020-10-02] MEDS: LORazepam 2 MG/ML VIAL IV PRN (14:21)
[2020-10-02] MEDS: HYDROMORPHONE HCL 1 MG/ML INJ IV PRN ×2 (16:07→23:34)
[2020-10-02 20:59] VITALS: BP 82/46; TEMP 98.6
--- NOTE | 2020-10-02 21:52 | P.HP ---
Certification for Inpatient Patient admitted to: Inpatient With expected LOS: >2 Midnights Patient will require the following post-hospital care: Hospice Practitioner: I am a practitioner with admitting privileges, knowledge of patient current condition, hospital course, and medical plan of care. Services: Services provided to patient in accordance with Admission requirements found in Title 42 Section 412.3 of the Code of Federal Regulations Patient History Date of Service: 10/02/20 Reason for admission: CHF History of Present Illness: MR. TIPTON IS A PATIENT OF DR. VICTORIA WHO HAS BEEN TAKING CARE OF HER FOR DEMENTIA, CHF, COPD AND HAS FAILED TO RECOVER. SHE IS NOW COMATOSE AND DR. VICTORIA ASKED FOR IN PATIENT HOSPICE. I TALKED TO FAMILY AT BEDSIDE. THEY SAID SHE HAS BEEN IN [facility] AND GRADUALLY GETTING WORSE. Allergies No Known Allergies Allergy (Verified 07/07/19 11:58) Home Medications: Mirtazapine [Remeron*] 15 mg PO BEDTIME 07/07/19 Rivaroxaban [Xarelto] 20 mg PO DAILY 08/05/20 Ascorbic Acid 500 mg PO DAILY 09/27/20 Furosemide [Lasix] 40 mg PO DAILY 09/27/20 Galantamine HBr [Galantamine ER] 8 mg PO DAILY 09/27/20 Zinc 50 mg PO DAILY 09/27/20 - Past Medical/Surgical History Diabetic: No -: hypertension -: high cholesterol -: pacemaker -: Possible right-sided malignant pleural effusion status post PleurX catheter -: Etiology of cancer unknown -: cataract 2017 -: appendectomy -: shoulder repair - Social History Alcohol use: Yes CD- Drugs: No Caffeine use: Yes Physical Examination - Vital Signs Temperature: 98.6 F Blood Pressure: 82/46 Pulse: 96 Respirations: 12 Pulse Ox (%): 86 - Physical Exam General: Cachectic, Comatose Neck: Supple, JVD not distended Respiratory: Diminished, Crackles/rales Cardiovascular: Normal S1 S2 Gastrointestinal: Normal bowel sounds Neurological: Other (COMATOSE AND NOT ABLE TO RESPOND TO ANY COMMAND.) Assessment and Plan - Problems (Diagnosis) (1) Dementia Current Visit: Yes Status: Acute Plan: SHE HAS WASTED TEMPLES. SHE HAD CONFUSION PER FAMILY BEFORE ALL THESE. Qualifiers: Dementia type: Alzheimer's (2) Respiratory failure Current Visit: No Status: Acute Plan: I AM NOT ABLE TO OPEN ANY NOTES OR REPORTS FROM [facility]. SHE HAS CHEST TUBE IN PLACE AND I AM NOT SURE IF IT WAS FOR PTX OR EFFUSION. IN ANY CASE AT THIS POINT OUR GOAL IS TO KEEP HER COMFORTABLE WHEN SHE IS DYING. Qualifiers: Chronicity: acute on chronic - Advance Directives Does patient have a Living Will: No Does patient have a Durable POA for Healthcare: No
[2020-10-03] MEDS: LORazepam 2 MG/ML VIAL IV PRN (01:55)
[2020-10-03] MEDS: HYDROMORPHONE HCL 1 MG/ML INJ IV PRN (05:58)
--- NOTE | 2020-10-03 20:44 | P.DS ---
Admission Date: 10/02/20 Discharge Date: 10/03/20 Disposition: Discharge Condition: Reason for Admission: CHF - Problems (1) Dementia Status: Acute Qualifiers: Dementia type: Alzheimer's (2) Respiratory failure Status: Acute Qualifiers: Chronicity: acute on chronic Brief History of Present Illness: MR. TIPTON IS A PATIENT OF DR. VICTORIA WHO HAS BEEN TAKING CARE OF HER FOR DEMENTIA, CHF, COPD AND HAS FAILED TO RECOVER. SHE IS NOW COMATOSE AND DR. VICTORIA ASKED FOR IN PATIENT HOSPICE. I TALKED TO FAMILY AT BEDSIDE. THEY SAID SHE HAS BEEN IN [facility] AND GRADUALLY GETTING WORSE. Hospital Course: MS TIPTON EXPECTED A DAY AFTER BEING ON HOSPICE. THIS AM SHE HAD AGONAL BREATHING WITH LONG PAUSES WHEN I SAW HER. Vital Signs/Physical Exam: Temp Pulse Resp BP Pulse Ox 98.6 F 96 H 10 L 82/46 L 86 L 10/02/20 21:52 10/02/20 21:52 10/03/20 05:58 10/02/20 21:52 10/02/20 21:52 Home Medications: Mirtazapine [Remeron*] 15 mg PO BEDTIME 07/07/19 Rivaroxaban [Xarelto] 20 mg PO DAILY 08/05/20 Ascorbic Acid 500 mg PO DAILY 09/27/20 Furosemide [Lasix] 40 mg PO DAILY 09/27/20 Galantamine HBr [Galantamine ER] 8 mg PO DAILY 09/27/20 Zinc 50 mg PO DAILY 09/27/20
== END 2020-10-03 12:26 | disposition expired | DRG 951 ==
LOC: 2ND 13:05
PROVIDERS: ADMIT Internal Medicine; ATTEND Internal Medicine
DX: Z51.5 Encounter for palliative care (principal)
CPT/HCPCS: J1170